=== PATIENT | female | born 1955 | race Caucasian/White ===

== ENCOUNTER → 2016-12-26 | Outpatient (CLI) | payer OTHER ==
[~2016-12-26] MED LIST: ADVIN25/60 INH; ALBU1AER9 INH; ASPI81TA28 PO; ATOR10TA88 PO; BSP15 PO; BUTA1TAB70 PO; CARI350T28 PO; CHOL1CAP57 PO; CMP/10 PO; CYM/30 PO; CYM30 PO; CYM60 PO; DIVA250T PO; DIVA500T3 PO; DPKSR/500 PO; FRS/40 PO; GABA1CAP4 PO; HYDR-4383 PO; HYDR-5688 PO; IPRASOL4 INH; LPT10 PO; LSX40 PO; METO50TA16 PO; MYS50 PO; NRN800 PO; OXGN; OXYC1TAB3 PO; POTA20TA13 PO; POTA20TA16 PO; PRD20 PO; PRED50TA PO; PRIM50TA29 PO; PROC1TAB5 PO; PRT/40 PO; VNTHFA/IN INH; WARF-246 PO; oxycodone PO
== END | disposition home or self-care (01) ==
LOC: C.RDSM 13:30
PROVIDERS: ATTEND Orthopaedic Surgery Sports Medicine
DX: Z09 Encounter for follow-up examination after completed treatment for conditions other than malignant neoplasm (principal)

== ENCOUNTER → 2016-12-29 | Outpatient (CLI) | payer OTHER ==
--- NOTE | 2016-12-29 11:41 | DIAGNOSTIC IMAGING REPORT ---
TWO VIEW CHEST CLINICAL HISTORY: COPD. Cough and dyspnea. FINDINGS: PA and lateral chest radiographs are compared to study dated 08/28/2016 and correlated with chest CT dated 06/30/2016. The PA view is degraded by patient rotation. A multilead cardiac AICD largely obscures the right lower chest. The patient is status post midline sternotomy. The heart is enlarged and there is atherosclerotic calcification of the thoracic aorta. The pulmonary vasculature is noncongested. Emphysema and chronic interstitial thickening are similar to previous. Linear atelectasis versus scarring is present at the left lung base. No airspace consolidation or pleural effusion is identified. Biapical scarring is noted. There is no pneumothorax. The skeletal structures are osteopenic. Mild scoliosis is noted in the thoracic spine. IMPRESSION: 1. Cardiomegaly and AICD. There is no radiographic evidence of congestive failure. 2. Emphysema. No airspace consolidation or pleural effusion is identified. Electronically signed by: Alberto Terry M.D. 12/29/2016 11:40 AM Dictated Date/Time: 12/29/2016 11:38 AM
== END | disposition home or self-care (01) ==
LOC: C.RAD 11:06
PROVIDERS: ATTEND Nurse Practitioner Family
DX: J42 Unspecified chronic bronchitis (principal); I51.7 Cardiomegaly; Z95.810 Presence of automatic (implantable) cardiac defibrillator; J43.9 Emphysema, unspecified

== ENCOUNTER 2017-01-10 10:33 | Emergency (ER) | payer OTHER ==
[~2017-01-10] VITALS: Ht 157.5 cm; Wt 70.0 kg
[~2017-01-10 10:33] MED LIST changes: -ASPI81TA28 PO; -BSP15 PO; -BUTA1TAB70 PO; -CARI350T28 PO; -CHOL1CAP57 PO; -CMP/10 PO; -CYM/30 PO; -CYM30 PO; -CYM60 PO; -DPKSR/500 PO; -FRS/40 PO; -GABA1CAP4 PO; -HYDR-5688 PO; -IPRASOL4 INH; -LPT10 PO; -LSX40 PO; -METO50TA16 PO; -MYS50 PO; -OXGN; -OXYC1TAB3 PO; -POTA20TA13 PO; -PRD20 PO; -PRED50TA PO; -PRT/40 PO; -VNTHFA/IN INH; -WARF-246 PO
[2017-01-10 10:48] VITALS: TEMP 37; Ht 157.5 cm; Wt 70.0 kg
[2017-01-10] MEDS ORDERED: VNTHFA/IN INH (11:12)
[2017-01-10] MEDS ORDERED: OXYC1TAB3 PO (11:15)
--- NOTE | 2017-01-10 11:40 | DIAGNOSTIC IMAGING REPORT ---
LEFT FOOT 3 VIEWS HISTORY: Left foot pain x 5 days COMPARISON: None. FINDINGS: There is no fracture or dislocation. Mild dorsal soft tissue swelling. Small plantar and posterior calcaneal spurs. The Lisfranc joint is aligned. IMPRESSION: Mild dorsal soft tissue swelling. No fractures. Electronically signed by: Juan Carlos Lombardi M.D. 01/10/2017 11:39 AM Dictated Date/Time: 01/10/2017 11:37 AM
[2017-01-10] MEDS ORDERED: HYDROCODONE/ACETAMOPHEN 5/325MG TAB PO STA (12:44)
[2017-01-10] MEDS ORDERED: PRED50TA PO (13:09)
[2017-01-10] MEDS ORDERED: HYDR-5688 PO (13:09)
--- NOTE | 2017-01-10 13:11 | EMERGENCY ROOM VISIT NOTE ---
ED Visit Note First contact with patient: 10:50 CHIEF COMPLAINT: Left foot pain 5 days Patient is a 61-year-old white female who presents emergency department for elevation of left foot pain. She states that she woke up with the pain about 5 days ago. She describes pain across the balls of the plantar aspect of her foot into the lateral aspect of the first MTP. It has not improved despite elevation and wearing her FERNANDA stockings. There was no injury to the area. She notes that it is swollen. She rates her pain a 10/10. She did not try taking any medications for her discomfort. She has a history of DVT and is chronically anticoagulated on Coumadin. She states that her INR was checked last week and was "1.3." The pain radiates slightly to her left ankle, but not up into the calf. She denies any unusual activity prior to the onset of the pain. She denies any other extremity pain. T REVIEW OF SYSTEMS: Review of systems as per HPI. All other systems reviewed were negative. At least 6 systems reviewed. PMH: Electronic medical records are reviewed and summarized as above/below. See Problem List. SOCIAL HISTORY: Patient lives at home. Smoker. PHYSICAL EXAM: Vital Signs: Reviewed Nurse's notes. GENERAL: Patient is a 61- year-old white female who is awake and alert and laying on the gurney in no acute distress. She appears older than her stated age. MUSCULOSKELETAL: Examination of the left foot show chronic purpura and petechiae. She has mild dorsal soft tissue swelling. Slight erythema noted over the lateral aspect of the first MTP. She has tenderness to palpation over the heads of the metatarsals on the plantar aspect of the foot and on the lateral aspect of the first MTP. There is no increased warmth or induration. No cellulitic changes. No lymphangitic streaking. There is no pain over the plantar fascia or over the medial or lateral malleolus. Range of motion of the ankle and toes are full. There is no obvious deformity. Distal pulses are easily palpable and sensation to light touch is intact. EMERGENCY DEPARTMENT COURSE: X-rays of the left foot were obtained and did not demonstrate any acute bony pathology. Her physical exam is not consistent with cellulitis. I do not suspect superficial thrombophlebitis or DVT. Given the location of her pain, gout was considered. She is unable to take NSAIDs due to her warfarin therapy. She was given one Lyndora tablet in the emergency department for discomfort. She will be placed in a short course of oral prednisone and was encouraged to use the Lyndora as needed. She was advised to follow-up with her family doctor closely for further care and management. LEFT FOOT 3 VIEWS HISTORY: Left foot pain x 5 days COMPARISON: None. FINDINGS: There is no fracture or dislocation. Mild dorsal soft tissue swelling. Small plantar and posterior calcaneal spurs. The Lisfranc joint is aligned. IMPRESSION: Mild dorsal soft tissue swelling. No fractures. Problem List Medical Problems: (1) CHF (congestive heart failure) Status: Chronic (2) COPD (chronic obstructive pulmonary disease) Status: Chronic (3) H/O cardiac pacemaker Status: Chronic (4) H/O unilateral nephrectomy Status: Resolved (5) History of - pulmonary embolus Status: Resolved (6) Kidney stones Status: Resolved (7) Myocardial infarction Status: Resolved Surgical Problems: (1) AICD (automatic cardioverter/defibrillator) present Status: Chronic Current/Historical Medications Scheduled Aspirin (Aspirin Ec), 81 MG PO QAM Atorvastatin (Lipitor), 10 MG PO QAM Buspirone HCl (Buspirone HCl), 15 MG PO BID Carisoprodol (Soma), 350 MG PO TID Cholecalciferol (Vitamin D3), 2,000 INTER.UNIT PO QAM Divalproex Sodium (Depakote Er), 500 MG PO DAILY Divalproex Sodium (Depakote Er), 1 TAB PO HS Duloxetine HCl (Duloxetine HCl), 60 MG PO QAM Duloxetine HCl (Duloxetine HCl), 30 MG PO NOON/HS Furosemide (Furosemide), 40 MG PO QAM Gabapentin (Gabapentin), 800 MG PO TID Ipratropium-Albuterol (Duoneb), 1 TREATMENT INH QID Metoprolol Tartrate (Lopressor) (Lopressor), 50 MG PO BID Pantoprazole (Pantoprazole Sodium), 40 MG PO QAM Potassium Ext Rel (Klor-Con), 20 MEQ PO QAM Prednisone (Prednisone), 50 MG PO DAILY Primidone (Mysoline), 50 MG PO QAM Primidone (Mysoline), 100 MG PO QPM Warfarin Sodium (Warfarin Sodium), 5 MG PO 4WEEK Warfarin Sodium (Warfarin Sodium), 2.5 MG PO 3XWEEK Scheduled PRN Albuterol Hfa (Ventolin Hfa), 2-4 PUFFS INH Q4H PRN for SOB/Wheezing Xfqrqptogm-Ftwxndumgvtua-Oswwj (Esgic), 1 TAB PO UD PRN for Headache Hydrocodone/Acetaminophen 5MG/325MG (Lyndora 5MG/325MG), 1 TABLET PO Q4 PRN for Pain Oxycodone Ir (Roxicodone Ir), 5 MG PO Q4H PRN for Pain Oxygen (Oxygen), 3 LITERS NA HS PRN for PRN Prochlorperazine Maleate (Compazine), 10 MG PO TID PRN for RN Allergies Coded Allergies: Penicillins (Verified Allergy, Severe, HIVES, 01/10/17) Nitroglycerin (Verified Allergy, Unknown, TOLD NOT TO TAKE BY CARDIOLOGY, 01/10/17) Morphine (Verified Adverse Reaction, Unknown, HALLUCINATE, 01/10/17) Oxycodone (Verified Adverse Reaction, Unknown, FROM PERCOCET-ITCHING, 01/10) Vital Signs Date Time Temp Pulse Resp B/P Pulse Ox O2 Delivery O2 Flow Rate FiO2 01/10/17 13:20 92 20 113/75 97 01/10/17 10:48 37.0 92 20 113/75 97 Room Air Medications Administered Medications (Trade) Dose Ordered Sig/Johnie Route Start Time Stop Time Status Last Admin Dose Admin Acetaminophen/ Hydrocodone Bitart ([place]dora 5/325 Tab) 1 tab NOW STAT PO 01/10/17 12:44 01/10/17 12:46 DC 01/10/17 12:56 1 TAB Departure Information Impression Primary Impression: Left foot pain Prescriptions Prednisone (Prednisone) 50 Mg Tab 50 MG PO DAILY for 5 Days, #5 TAB Prov: Julia Davila PA 01/10/17 Hydrocodone/Acetaminophen 5MG/325MG (Lyndora 5MG/325MG) Tab 1 TABLET PO Q4 Y for Pain, #10 TAB For Initial Treatment Prov: Julia Davila PA 01/10/17 Referrals Milady Valle (PCP) Patient Instructions My [facility] Additional Instructions DO NOT drive, drink alcohol, operate machinery, or perform dangerous activities today. You were given medications in the ER that can affect your ability to safely function or operate a vehicle. Hydrocodone/Acetaminophen (Lyndora) 5/325 mg: Take 1-2 pills every four hours for breakthrough pain. Avoid alcohol, operating machinery or dangerous equipment, working on ladders or roofs, DRIVING, or situations where being under the influence may be dangerous. It is recommended to use an [id number] stool softener such as Colace, 100mg twice daily while taking this medication to avoid constipation. Prednisone 50mg: Once daily until the prescription is finished. It is best to take this earlier in the day as some patients note occasional difficulty falling asleep when taken in the late evening. Ice compresses for 20 minutes at a time four times daily for 2-3 days. Rest and elevate your injury. Continue current medications. Return to the ER immediately for any numbness, tingling, severe pain, extreme swelling in the extremity, fevers, worsening symptoms or as needed. Follow up with your primary care physician in 2-3 days for recheck of your present condition.
[2017-01-10 13:20] VITALS: BP 113/75; PULSE 92; O2SAT 97
[2017-03-27] MEDS ORDERED: PRIM50TA29 PO (11:28)
[2017-03-27] MEDS ORDERED: BUTA1TAB70 PO (11:28)
[2017-03-27] MEDS ORDERED: WARF-246 PO ×2 (11:35)
[2017-03-27] MEDS ORDERED: LSX40 PO (13:09)
[2017-03-27] MEDS ORDERED: CARI350T28 PO (13:26)
[2017-03-27] MEDS ORDERED: PRT/40 PO (17:34)
[2017-03-28] MEDS ORDERED: PRD20 PO (16:21)
== END 2017-01-10 13:20 | disposition home or self-care (01) ==
LOC: C.EDB 10:35 → C.EDD 13:20
DX: M79.672 Pain in left foot (principal); I50.9 Heart failure, unspecified; J44.9 Chronic obstructive pulmonary disease, unspecified; Z95.0 Presence of cardiac pacemaker; Z86.711 Personal history of pulmonary embolism; Z87.442 Personal history of urinary calculi; I25.2 Old myocardial infarction; Z90.5 Acquired absence of kidney; Z79.82 Long term (current) use of aspirin; Z79.01 Long term (current) use of anticoagulants; Z79.899 Other long term (current) drug therapy; F17.210 Nicotine dependence, cigarettes, uncomplicated

== ENCOUNTER 2017-03-27 15:05 | Inpatient (IN) | payer OTHER ==
[~2017-03-27] VITALS: Ht 157.5 cm; Wt 72.8 kg
[~2017-03-27 15:05] MED LIST changes: -ADVIN25/60 INH; -ALBU1AER9 INH; +ATOR10TA82 PO; -ATOR10TA88 PO; +BUTA1TAB70 PO; +CARI350T28 PO; -HYDR-4383 PO; +HYDR-5688 PO; +LSX40 PO; +OXYC1TAB3 PO; +VNTHFA/IN INH; +WARF-246 PO; -oxycodone PO
[2017-03-27] MEDS ORDERED: OXGN (15:08)
[2017-03-27] MEDS ORDERED: ASPI81TA28 PO (15:29)
[2017-03-27] MEDS ORDERED: IPRASOL4 INH (15:29)
[2017-03-27] MEDS ORDERED: SODIUM CHLORIDE 0.9% 1000ML 1,000 ML IV STA (15:31)
[2017-03-27 15:37] LABS: BASO % 0.5 %; BASO ABS # 0.03 K/uL (0-0.2); COMPLETE YES; EOS % 1.9 %; HEMATOCRIT 40.7 % (37-47); IG% 0.2 %; LYMPH % 37.1 %; LYMPH ABS # 2.31 K/uL (1.2-3.4); MEAN CELL VOLUME 101.5 fL (80-100); MEAN CORPUSCULAR HEMOGLOBIN 34.2 pg (25-34); MEAN CORPUSCULAR HGB CONC 33.7 g/dl (32-36); MEAN PLATELET VOLUME 10.4 fL (7.4-10.4); MONO % 9.8 %; NEUT % 50.5 %; PLATELET COUNT 222 K/uL (130-400); RED BLOOD COUNT 4.01 M/uL (4.2-5.4); WHITE BLOOD COUNT 6.22 K/uL (4.8-10.8)
--- NOTE | 2017-03-27 15:37 | DIAGNOSTIC IMAGING REPORT ---
CHEST ONE VIEW PORTABLE CLINICAL HISTORY: Atypical chest pain COMPARISON STUDY: 12/29/2016 FINDINGS: There is a right subclavian pacer/defibrillator. There are postsurgical changes of midline sternotomy. The heart is mildly enlarged. There is no failure. There is no focal pulmonary consolidation. There are no pleural effusions.[ IMPRESSION: No active disease in the chest. Electronically signed by: Alphonso Gracia M.D. 03/27/2017 3:36 PM Dictated Date/Time: 03/27/2017 3:35 PM
--- NOTE | 2017-03-27 15:49 | EMERGENCY ROOM VISIT NOTE ---
History Report prepared by Jayjay: Pee Leal Under the Supervision of: Dr. Nilay Orellana D.O. First contact with patient: 15:06 Chief Complaint: CHEST PAIN Stated Complaint: CHEST PAIN History of Present Illness The patient is a 61 year old female who presents to the Emergency Room via EMS with complaints of persistent left sided chest pain starting about an hour ago. The patient has a [employer] pacemaker in place for a history of Idiopathic Hypertrophic Subaortic Stenosis. Today, the patient was cleaning when she had a sudden onset of her pain. She has an AICD which fired twice. The defibrillator fired once just prior to the onset of her pain. She describes it to be a stabbing pain. She denies any worsening pain with movement or bending. She has worsening pain with breathing. She reports some shortness of breath. The patient has a history of COPD. She was given 4 mg Zofran and 8 mg Morphine by EMS. She denies any history of aortic dissection or aortic aneurysm. She has a history of heart attack but denies any similar symptoms today. She also has a history of 2 strokes. She is on Coumadin. Pt denies headache, change in vision, fevers, cough or productive sputum, vomiting, diarrhea, pain with urination, and melena. Source of History: patient, EMS Onset: about an hour ago Position: chest (left) Quality: stabbing Timing: other (persistent) Modifying Factors (Worsening): breathing Modifying Factors (Relieving): other (4 mg Zofran and 8 mg Morphine) Associated Symptoms: + SOB, No cough, No diarrhea, No fevers, No vomiting Review of Systems See HPI for pertinent positives & negatives. A total of 10 systems reviewed and were otherwise negative. Past Medical & Surgical Medical Problems: (1) Abdominal pain (2) CHF (congestive heart failure) (3) COPD (chronic obstructive pulmonary disease) (4) H/O cardiac pacemaker (5) H/O unilateral nephrectomy (6) History of - pulmonary embolus (7) Kidney stones (8) Myocardial infarction (9) SOB (shortness of breath) (10) Stroke-like symptoms Surgical Problems: (1) AICD (automatic cardioverter/defibrillator) present Family History No significant family history Social History Smoking Status: Current Every Day Smoker Alcohol Use: none Drug Use: none Marital Status: Housing Status: lives with family Occupation Status: unemployed Current/Historical Medications Scheduled Aspirin (Aspirin Ec), 81 MG PO QAM Atorvastatin (Atorvastatin Calcium), 10 MG PO QAM Buspirone HCl (Buspirone HCl), 15 MG PO BID Cholecalciferol (Vitamin D3), 2,000 INTER.UNIT PO QAM Divalproex Sodium (Depakote Etended-Release), 500 MG PO HS Duloxetine HCl (Duloxetine HCl), 60 MG PO QAM Duloxetine HCl (Duloxetine HCl), 30 MG PO HS Duloxetine HCl (Cymbalta), 30 MG PO QD@1200 Furosemide (Furosemide), 40 MG PO QD@0700 Furosemide (Lasix), 40 MG PO QD@1200 Gabapentin (Gabapentin), 300 MG PO TID Metoprolol Tartrate (Lopressor) (Lopressor), 50 MG PO BID Oxygen (Oxygen), 3 LITERS NA UD Pantoprazole (Pantoprazole Sodium), 40 MG PO QAM Potassium Chloride Microencaps (Potassium Chloride Er), 20 MEQ PO DAILY Primidone (Mysoline), 100 MG PO QPM Primidone (Primidone), 50 MG PO QAM Warfarin Sodium (Warfarin Sodium), 5 MG PO 5XWK Warfarin Sodium (Warfarin Sodium), 2.5 MG PO 2XWK Scheduled PRN Pqfbbwnelb-Fpjvlnqxysauo-Cchqr (Esgic), 1 TAB PO UD PRN for Headache Carisoprodol (Soma), 350 MG PO TID PRN for Muscle Relaxer Hydrocodone/Acetaminophen ([place] 10/325 Tab), 2 TABS PO TID PRN for Pain Ipratropium-Albuterol (Duoneb), 1 TREATMENT INH QID PRN for SOB/Wheezing Prochlorperazine Maleate (Prochlorperazine Maleate), 10 MG PO Q6H PRN for Migraine/Nausea Allergies Coded Allergies: Penicillins (Verified Allergy, Severe, HIVES, 01/10/17) Nitroglycerin (Verified Allergy, Unknown, TOLD NOT TO TAKE BY CARDIOLOGY, 01/10/17) Morphine (Verified Adverse Reaction, Unknown, HALLUCINATE, 01/10/17) Oxycodone (Verified Adverse Reaction, Unknown, FROM PERCOCET-ITCHING, 01/10) Physical Exam Vital Signs Date Time Temp Pulse Resp B/P Pulse Ox O2 Delivery O2 Flow Rate FiO2 03/27/17 18:28 61 18 123/74 98 Nasal Cannula 2.0 03/27/17 16:50 54 18 118/62 99 Room Air 03/27/17 15:55 51 20 109/72 98 Nasal Cannula 2.0 03/27/17 15:30 54 03/27/17 15:12 36.7 58 20 106/68 98 Nasal Cannula 2.0 Physical Exam GENERAL: Sitting up in bed, disheveled, chronically ill appearing, no acute distress, non-toxic EYE EXAM: normal conjunctiva OROPHARYNX: no exudate, no erythema, lips, buccal mucosa, and tongue normal and mucous membranes are moist NECK: supple, no nuchal rigidity, no adenopathy, non-tender CHEST: Pacemaker located in right chest wall LUNGS: Wheezing bilaterally HEART: no murmurs, S1 normal and S2 normal ABDOMEN: abdomen soft, non-tender, normo-active bowel sounds, no masses, no rebound or guarding. BACK: Back is symmetrical on inspection and there is no deformity, no midline tenderness, no CVA tenderness. SKIN: no rashes and no bruising UPPER EXTREMITIES: upper extremities are grossly normal. LOWER EXTREMITIES: No pitting edema. Calves are equal bilaterally. NEURO EXAM: Normal sensorium, cranial nerves II-XII grossly intact, normal speech, no gross weakness of arms, no gross weakness of legs. Medical Decision & Procedures ER Provider Diagnostic Interpretation: X-ray results as stated below per my and the radiologist's interpretation: CHEST ONE VIEW PORTABLE CLINICAL HISTORY: Atypical chest pain COMPARISON STUDY: 12/29/2016 FINDINGS: There is a right subclavian pacer/defibrillator. There are postsurgical changes of midline sternotomy. The heart is mildly enlarged. There is no failure. There is no focal pulmonary consolidation. There are no pleural effusions.[ IMPRESSION: No active disease in the chest. Electronically signed by: Alphonso Gracia M.D. 03/27/2017 3:36 PM Dictated Date/Time: 03/27/2017 3:35 PM Laboratory Results 03/27/17 15:20 Red Blood Count 4.01, Mean Corpuscular Volume 101.5, Mean Corpuscular Hemoglobin 34.2, Mean Corpuscular Hemoglobin Concent 33.7, Mean Platelet Volume 10.4, Neutrophils (%) (Auto) 50.5, Lymphocytes (%) (Auto) 37.1, Monocytes (%) ( Auto) 9.8, Eosinophils (%) (Auto) 1.9, Basophils (%) (Auto) 0.5, Neutrophils # ( Auto) 3.14, Lymphocytes # (Auto) 2.31, Monocytes # (Auto) 0.61, Eosinophils # ( Auto) 0.12, Basophils # (Auto) 0.03 03/27/17 15:20 Test 03/27/17 15:20 03/27/17 16:00 White Blood Count 6.22 K/uL (4.8-10.8) Red Blood Count 4.01 M/uL (4.2-5.4) Hemoglobin 13.7 g/dL (12.0-16.0) Hematocrit 40.7 % (37-47) Mean Corpuscular Volume 101.5 fL (80-100) Mean Corpuscular Hemoglobin 34.2 pg (25-34) Mean Corpuscular Hemoglobin Concent 33.7 g/dl (32-36) Platelet Count 222 K/uL (130-400) Mean Platelet Volume 10.4 fL (7.4-10.4) Neutrophils (%) (Auto) 50.5 % Lymphocytes (%) (Auto) 37.1 % Monocytes (%) (Auto) 9.8 % Eosinophils (%) (Auto) 1.9 % Basophils (%) (Auto) 0.5 % Neutrophils # (Auto) 3.14 K/uL (1.4-6.5) Lymphocytes # (Auto) 2.31 K/uL (1.2-3.4) Monocytes # (Auto) 0.61 K/uL (0.11-0.59) Eosinophils # (Auto) 0.12 K/uL (0-0.5) Basophils # (Auto) 0.03 K/uL (0-0.2) RDW Standard Deviation 50.6 fL (36.4-46.3) RDW Coefficient of Variation 13.4 % (11.5-14.5) Immature Granulocyte % (Auto) 0.2 % Immature Granulocyte # (Auto) 0.01 K/uL (0.00-0.02) Anion Gap 5.0 mmol/L (3-11) Est Creatinine Clear Calc Drug Dose 69.2 ml/min Estimated GFR () 93.0 Estimated GFR (Non- 80.2 BUN/Creatinine Ratio 9.2 (10-20) Calcium Level 8.5 mg/dl (8.5-10.1) Magnesium Level 2.2 mg/dl (1.8-2.4) Total Creatine Kinase 123 U/L (26-192) Creatine Kinase MB 3.4 ng/ml (0.5-3.6) Creatine Kinase MB Ratio 2.8 (0-3.0) Valproic Acid (Depakene) Level 39 mcg/ml (50-100) Prothrombin Time 30.1 SECONDS (9.0-12.0) Prothromb Time International Ratio 2.7 (0.9-1.1) Laboratory results per my review. Medications Administered Medications (Trade) Dose Ordered Sig/Johnie Route Start Time Stop Time Status Last Admin Dose Admin Sodium Chloride (Nss 1000ml) 1,000 ml @ 999 mls/hr Q1H1M STAT IV 03/27/17 15:31 03/27/17 16:31 DC 03/27/17 15:42 999 MLS/HR Fentanyl Citrate (Fentanyl Inj) 25 mcg NOW STAT IV 03/27/17 15:58 03/27/17 15:59 DC 03/27/17 16:20 25 MCG Acetaminophen/ Hydrocodone Bitart ([place] 10/325 Tab) 2 tab TID PRN PO 03/27/17 18:45 04/10/17 18:44 03/27/17 21:17 2 TAB ECG Indication: chest pain Rate (beats per minute): 67 Rhythm: other (Dual paced rhythm) Findings: LBBB, left axis deviation, prolonged QT Comparison ECG Date: June 30, 2016 Change: Dual paced rhythm has replaced ventricular paced rhythm when compared to June 30, 2016. ED Course ED COURSE: Vital signs were reviewed and showed bradycardic. The patients medical record was reviewed The above diagnostic studies were performed and reviewed. ED treatments and interventions as stated above. 1506: The patient was evaluated in room C12B. A complete history and physical examination was performed. 1515: The patient's pacemaker is being interrogated. 1531: Sodium Chloride 1000 ml @ 999 mls/hr IV 1556: I reviewed previous radiology reports. 1558: Fentanyl Inj 25 mcg IV 1643: Upon reevaluation, the patient is resting comfortably. I discussed my findings with the patient and she understands and agrees with the treatment plan. Based on the patients age, coexisting illnesses, exam and lab findings the decision to treat as an inpatient was made. The patient remained stable while under my care. The patient will be evaluated for further management. 1643: I discussed the patient's case with Dr. Sorensen, from [facility]. 1648: Since 1616, everything has been normal in her pacemaker interrogation. Medical Decision Differential diagnoses includes but is not limited to acute coronary syndrome, myocardial infarction, pericarditis, pulmonary embolus, aortic dissection, pneumonia, pneumothorax, musculoskeletal, shingles, esophageal. Medication Reconciliation: I attest that I have personally reviewed the patient' s current medication list. Blood pressure screening: Patient was found to have normal blood pressure on screening and does not require follow-up. Patient is a 59-year-old female who presents the ER for precordial chest pain radiating to the back. She has a history of HCOM, PE, IN and CHF. She is on anticoagulation. CBC along with BMP was unremarkable. Troponin was elevated at 1.89. This is fairly consistent with her previous baselines at 1.5. INR was 2.7 and consequently PE was not pursued as she is anticoagulated and I feel this is very unlikely. Chest x-ray was unremarkable. EKG was paced. She did complain that she was initially shocked and following this her chest pain started. Pacemaker was interrogated and there is no shocks since February 12. Patient was given a small dose of fentanyl and had already received aspirin. The patient had a CTA of chest on June 2016 which was compared to March 2015. It showed an unremarkable aorta. She had a CT of abdomen and pelvis on July 2016 which was normal without atherosclerosis. With these 2 recent studies I did not pursue any aneurysms as I feel this is very unlikely. With her risk factors discussed case with internal medicine for observation. Consults Time Called: 1639 Consulting Physician: Dr. Sorensen, from [facility] Returned Call: 1643 I discussed the patient's case with Dr. Sorensen, from [facility]. Impression Primary Impression: Precordial chest pain Additional Impression: Elevated troponin Scribe Attestation The scribe's documentation has been prepared under my direction and personally reviewed by me in its entirety. I confirm that the note above accurately reflects all work, treatment, procedures, and medical decision making performed by me. Departure Information Dispostion Being Evaluated By Hospitalist Referrals Milady Valle (PCP) Patient Instructions My [facility] Problem Qualifiers
[2017-03-27 15:55] LABS: BUN/CREATININE RATIO 9.2 (10-20); CALCIUM 8.5 mg/dl (8.5-10.1); CREATININE 0.79 mg/dl (0.60-1.20); MAGNESIUM 2.2 mg/dl (1.8-2.4); POTASSIUM 4.4 mmol/L (3.5-5.1)
[2017-03-27] MEDS ORDERED: FENTANYL CITRATE INJ 50 MCG/1 ML 2 ML VIAL IV STA (15:58)
[2017-03-27 16:04] LABS: CKMB/CK RATIO 2.8 (0-3.0)
[2017-03-27 16:18] LABS: INR 2.7 (0.9-1.1); PROTHROMBIN TIME (PATIENT) 30.1 SECONDS (9.0-12.0)
[2017-03-27] MEDS ORDERED: BSP15 PO (16:26)
[2017-03-27] MEDS ORDERED: GABA1CAP4 PO (16:28)
[2017-03-27] MEDS ORDERED: MYS50 PO (16:28)
[2017-03-27] MEDS ORDERED: POTA20TA13 PO (16:29)
[2017-03-27] MEDS ORDERED: HYDR-4383 PO (16:29)
[2017-03-27] MEDS ORDERED: FRS/40 PO (16:29)
[2017-03-27] MEDS ORDERED: CMP/10 PO (16:29)
[2017-03-27] MEDS ORDERED: DPKSR/500 PO (16:29)
[2017-03-27] MEDS ORDERED: LPT10 PO (16:29)
[2017-03-27] MEDS ORDERED: CYM/30 PO (16:36)
[2017-03-27] MEDS ORDERED: PANT40TA2 PO (17:34)
[2017-03-27] MEDS ORDERED: CYM30 PO (17:34)
[2017-03-27] MEDS ORDERED: MAGNESIUM HYDROXIDE SUSP 30 ML UDC PO PRN (18:30)
[2017-03-27] MEDS ORDERED: ACETAMINOPHEN 325 MG TAB PO PRN (18:30)
[2017-03-27] MEDS ORDERED: ONDANSETRON INJ 2 MG/ML 2 ML VIAL IV PRN (18:30)
[2017-03-27] MEDS ORDERED: POLYETHYLENE (MIRALAX) 17 GM PACK PO PRN (18:30)
[2017-03-27] MEDS ORDERED: ALUMINUM/MAGNESIUM/SIMETH (MAALOX MAX) 30 ML UDC PO PRN (18:30)
[2017-03-27] MEDS ORDERED: PROCHLORPERAZINE MALEATE 10 MG TAB PO PRN (18:45)
[2017-03-27] MEDS ORDERED: ALBUT/IPRATROP 3MG/0.5MG NEB 3 ML VIAL INH PRN (18:45)
--- NOTE | 2017-03-27 19:02 | History and Physical ---
History & Physical Date & Time of Service: March 27, 2017 at 18:44 Chief Complaint: Chest Pain Primary Care Physician: Milady Valle History of Present Illness 61 year old female with a PMH of CHF, COPD, Stroke and several other medical ailments presented to [facility] with substernal chest pain and was found to have elevated troponins. The chest pain started at 330pm, it is central. It is stabbing in nature and it radiates to the left shoulder and left leg. It is made better by rest and is made worse by exertion. She says she felt as if her pacemaker went off. She rates the pain as a 10/10 in severity. She has associated dry heaves, shortness of breath, pleuritic chest pain, diaphoresis and productive cough She was given zofran and morphine by EMS. In the ED she was found to have a troponin of 1.89 She denies any nausea, vomiting, palpitations, headache, facial weakness, limb weakness, slurred speech, visual changes, ab pain, fever, night sweats chills, dysuria, constipation or diarrhea Past Medical/Surgical History Medical Problems: (1) CHF (congestive heart failure) Status: Chronic (2) COPD (chronic obstructive pulmonary disease) Status: Chronic (3) H/O cardiac pacemaker Status: Chronic (4) H/O unilateral nephrectomy Status: Resolved (6) Kidney stones Status: Resolved (7) Myocardial infarction Status: Resolved Surgical Problems: (1) AICD (automatic cardioverter/defibrillator) present Status: Chronic 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 Depression Tremors Stroke Peripheral Arterial Disease Peripheral neuropathy HOCM Family History No significant family history Mother had stroke in 40's Father had MT in 50's Social History Smoking Status: Current Every Day Smoker (50 pack year history) Alcohol Use: none Drug Use: none Marital Status: Housing status: lives with family Occupational Status: unemployed Immunizations History of Influenza Vaccine: Yes Influenza Vaccine Date: Jul 05, 2011 History of Tetanus Vaccine?: No History of Pneumococcal: Yes Pneumococcal Date: Jul 05, 2011 History of Hepatitis B Vaccine: No Multi-Drug Resistant Organisms History of MDRO: No Allergies Coded Allergies: Penicillins (Verified Allergy, Severe, HIVES, 01/10/17) Nitroglycerin (Verified Allergy, Unknown, TOLD NOT TO TAKE BY CARDIOLOGY, 01/10/17) Morphine (Verified Adverse Reaction, Unknown, HALLUCINATE, 01/10/17) Oxycodone (Verified Adverse Reaction, Unknown, FROM PERCOCET-ITCHING, 01/10) Home Medications Scheduled Aspirin (Aspirin Ec), 81 MG PO QAM Atorvastatin (Atorvastatin Calcium), 10 MG PO QAM Buspirone HCl (Buspirone HCl), 15 MG PO BID Cholecalciferol (Vitamin D3), 2,000 INTER.UNIT PO QAM Divalproex Sodium (Depakote Etended-Release), 500 MG PO HS Duloxetine HCl (Duloxetine HCl), 60 MG PO QAM Duloxetine HCl (Duloxetine HCl), 30 MG PO HS Duloxetine HCl (Cymbalta), 30 MG PO QD@1200 Furosemide (Furosemide), 40 MG PO QD@0700 Furosemide (Lasix), 40 MG PO QD@1200 Gabapentin (Gabapentin), 300 MG PO TID Metoprolol Tartrate (Lopressor) (Lopressor), 50 MG PO BID Oxygen (Oxygen), 3 LITERS NA UD Pantoprazole (Pantoprazole Sodium), 40 MG PO QAM Potassium Chloride Microencaps (Potassium Chloride Er), 20 MEQ PO DAILY Primidone (Mysoline), 100 MG PO QPM Primidone (Primidone), 50 MG PO QAM Warfarin Sodium (Warfarin Sodium), 5 MG PO 5XWK Warfarin Sodium (Warfarin Sodium), 2.5 MG PO 2XWK Scheduled PRN Twpauuikaj-Fjrspzrtpsiyy-Xngrb (Esgic), 1 TAB PO UD PRN for Headache Carisoprodol (Soma), 350 MG PO TID PRN for Muscle Relaxer Hydrocodone/Acetaminophen ([place] 10/325 Tab), 2 TABS PO TID PRN for Pain Ipratropium-Albuterol (Duoneb), 1 TREATMENT INH QID PRN for SOB/Wheezing Prochlorperazine Maleate (Prochlorperazine Maleate), 10 MG PO Q6H PRN for Migraine/Nausea Review of Systems please see HPI for ROS Physical Exam Vital Signs Date Time Temp Pulse Resp B/P Pulse Ox O2 Delivery O2 Flow Rate FiO2 03/27/17 18:28 61 18 123/74 98 Nasal Cannula 2.0 03/27/17 16:50 54 18 118/62 99 Room Air 03/27/17 15:55 51 20 109/72 98 Nasal Cannula 2.0 03/27/17 15:30 54 03/27/17 15:12 36.7 58 20 106/68 98 Nasal Cannula 2.0 General Appearance: + mild distress, + pertinent finding (disheveled) Head: normocephalic, atraumatic Eyes: normal inspection, PERRL, EOMI ENT: hearing grossly normal, pharynx normal, + pertinent finding (poor dentition) Neck: supple, no adenopathy, no JVD, no carotid bruits, trachea midline Respiratory/Chest: + decreased breath sounds, + rhonchi (diffuse and scattered bilaterally), + wheezing (diffuse bilaterally) Cardiovascular: regular rate, rhythm, + abnormal peripheral pulses (unable to feel peripheral pulses), + pertinent finding (distant heart sounds, difficult to hear because of wheezing, pacemaker in right side of chest, non tender and non erythematous) Abdomen/GI: normal bowel sounds, soft, no organomegaly, + tenderness ( suprapubic tenderness) Back: normal inspection, no CVA tenderness Extremities/Musculoskelatal: no calf tenderness, + pedal edema (+1 edema to mid deleon), + slow capillary refill (>4 seconds), + pertinent finding (cold feet bilaterally, purple discolouration of lower extremities bilaterally) Neurologic/Psych: alert, normal mood/affect, oriented x 3 Diagnostics Laboratory Results Results Past 24 Hours Test 03/27/17 15:20 03/27/17 16:00 Range/Units White Blood Count 6.22 4.8-10.8 K/uL Red Blood Count 4.01 4.2-5.4 M/uL Hemoglobin 13.7 12.0-16.0 g/dL Hematocrit 40.7 37-47 % Mean Corpuscular Volume 101.5 80-100 fL Mean Corpuscular Hemoglobin 34.2 25-34 pg Mean Corpuscular Hemoglobin Concent 33.7 32-36 g/dl Platelet Count 222 130-400 K/uL Mean Platelet Volume 10.4 7.4-10.4 fL Neutrophils (%) (Auto) 50.5 % Lymphocytes (%) (Auto) 37.1 % Monocytes (%) (Auto) 9.8 % Eosinophils (%) (Auto) 1.9 % Basophils (%) (Auto) 0.5 % Neutrophils # (Auto) 3.14 1.4-6.5 K/uL Lymphocytes # (Auto) 2.31 1.2-3.4 K/uL Monocytes # (Auto) 0.61 0.11-0.59 K/uL Eosinophils # (Auto) 0.12 0-0.5 K/uL Basophils # (Auto) 0.03 0-0.2 K/uL RDW Standard Deviation 50.6 36.4-46.3 fL RDW Coefficient of Variation 13.4 11.5-14.5 % Immature Granulocyte % (Auto) 0.2 % Immature Granulocyte # (Auto) 0.01 0.00-0.02 K/uL Sodium Level 135 136-145 mmol/L Potassium Level 4.4 3.5-5.1 mmol/L Chloride Level 97 98-107 mmol/L Carbon Dioxide Level 33 21-32 mmol/L Anion Gap 5.0 3-11 mmol/L Blood Urea Nitrogen 7 7-18 mg/dl Creatinine 0.79 0.60-1.20 mg/dl Est Creatinine Clear Calc Drug Dose 69.2 ml/min Estimated GFR () 93.0 Estimated GFR (Non- 80.2 BUN/Creatinine Ratio 9.2 10-20 Random Glucose 97 70-99 mg/dl Calcium Level 8.5 8.5-10.1 mg/dl Magnesium Level 2.2 1.8-2.4 mg/dl Total Creatine Kinase 123 26-192 U/L Creatine Kinase MB 3.4 0.5-3.6 ng/ml Creatine Kinase MB Ratio 2.8 0-3.0 Troponin I 1.890 0-0.045 ng/ml Valproic Acid (Depakene) Level 39 50-100 mcg/ml Prothrombin Time 30.1 9.0-12.0 SECONDS Prothromb Time International Ratio 2.7 0.9-1.1 CXR normal EKG AV dual paced rythm No change from prior EKG Impression Assessment and Plan 61 year old female with a PMH of CHF, COPD, Stroke and several other medical ailments presented to [facility] with substernal chest pain and was found to have elevated troponin Chest pain (undiagnosed) - trend troponins, last one was 1.89, repeat at 9pm - admit to telemetry - EKG unchanged from prior - pacemaker - complete echo tomorrow am - continue aspirin, lipitor and warfarin - ordered Hba1c and lipid panel CHF (systolic) - Hx of HOCM and Idiopathic Hypertrophic subaortic sclerosis - Last echo june 2016 45-50% - had open heart surgery over 15 years ago - Dr. Pete is his dental hygienist - Continue furosemide, continue metoprolol, cont potassium Atrial Fibrillation - on warfarin 2.5 2x weekly and 5mg 5xweekly - INR 2.7 - repeat in AM - on tele Stroke - 1 year ago - persistent tremor after stroke - on depakote and primidone for tremor COPD - on 3L at night - Duoneb QID - significant smoking hx-put on nicotine patch Depression - continue duloxetine, buspirone Hx Kidney stones - unilateral nephrectomy Peripheral neuropathy - Gabapentin GERD - continue pantoprazole Muscle spasms - carisoprodol Diet - Heart healthy diet Code - Full no mechanical or compressions Level of Care Telemetry Resuscitation Status FULL NO CARDIOV/MECH BRIDGET VTE Prophylaxis VTE Risk Assessment Done? Y/N: Yes Risk Level: High Reviewed: Pt Seen/Exam by Me History Pt has had occasional chest pain while in the ED. Audible wheezing and SOB. Feels she is not getting enough O2 on 2L. States she takes her nebs QID at home and is overdue. is present and states that she is not frequently with audible wheezing. Pt has been eating without issue. She is eating a cheeseburger from the cafe that her brought her. Agree with HPI/ROS as noted. General Appearance: WD/WN, mild distress (SOB) Respiratory: decreased breath sounds, wheezing (diffuse and audible upon entering the room) Cardiovascular: normal peripheral pulses, regular rate, rhythm Gastrointestinal: non tender, soft Extremities: non-tender, pedal edema (1+ pitting) Neurologic/Psychiatric: alert, oriented x 3 Skin Characteristics: normal color, warm/dry Assessment/Plan Agree with plan as outlined above Chest pain with elevated trop Pt with baseline trop elevation 1.4-1.5 Extensive cardiac hx Repeat trop and if further elevation, will likely need cards assessment ECHO pending INR WNL, PE unlikely COPD exacerbation Start nebs QID + PRN Steroids 125mg now + 60mg TID
[2017-03-27] MEDS ORDERED: METHYLPREDNISOLONE 125 MG VIAL IV STA (19:45)
[2017-03-27 20:00] VITALS: PULSE 65; O2SAT 98
[2017-03-27] MEDS: ALBUT/IPRATROP 3MG/0.5MG NEB 3 ML VIAL INH SCH (20:00)
[2017-03-27 20:01] VITALS: BP 90/73; PULSE 66; TEMP 36.6; O2SAT 97; Ht 157.5 cm; Wt 72.8 kg
[2017-03-27] MEDS ORDERED: METO50TA16 PO (20:25)
[2017-03-27] MEDS ORDERED: CYM60 PO (20:25)
[2017-03-27] MEDS ORDERED: CHOL1CAP57 PO (20:27)
[2017-03-27] MEDS ORDERED: METHYLPREDNISOLONE 125 MG in SYRINGE 0 ML IV SCH (20:30)
[2017-03-27] MEDS ORDERED: PRIMIDONE 50 MG TAB PO SCH (21:00)
[2017-03-27] MEDS ORDERED: DULOXETINE (CYMBALTA) 30 MG CAP PO SCH (21:00)
[2017-03-27] MEDS: HYDROCODONE/ACETAMI 10/325 TAB PO PRN (21:17)
[2017-03-27] MEDS: GABAPENTIN 300 MG CAP PO SCH (21:19)
[2017-03-27 23:23] VITALS: BP 105/71; PULSE 57; TEMP 36.7; O2SAT 90
[2017-03-27] MEDS: CARISOPRODOL 350 MG TAB PO PRN (23:54)
[2017-03-28] VITALS (9 sets, daily range): BP systolic 99–118; BP diastolic 59–84; PULSE 56–78; TEMP 36.7–36.9; O2SAT 90–99
[2017-03-28] MEDS: ALBUT/IPRATROP 3MG/0.5MG NEB 3 ML VIAL INH SCH ×3 (01:27→15:08)
[2017-03-28] MEDS: BUTALBITAL/ACETAMIN/CAFFEINE TAB PO PRN ×2 (05:35→14:02)
[2017-03-28] MEDS ORDERED: FUROSEMIDE 40 MG TAB PO SCH ×2 (07:00→12:00)
[2017-03-28 07:49] LABS: INR 2.2 (0.9-1.1); PROTHROMBIN TIME (PATIENT) 24.1 SECONDS (9.0-12.0)
[2017-03-28 08:28] LABS: CHOLESTEROL/HDL RATIO 4.4
[2017-03-28] MEDS: HYDROCODONE/ACETAMI 10/325 TAB PO PRN ×2 (08:35→10:52)
[2017-03-28] MEDS: METHYLPREDNISOLONE IV 60 MG in SYRINGE 0 ML IV SCH ×2 (08:35→14:03)
[2017-03-28] MEDS: GABAPENTIN 300 MG CAP PO SCH ×2 (08:38→14:02)
[2017-03-28] MEDS ORDERED: POTASSIUM CHLORIDE 20 MEQ TABCR PO SCH (09:00)
[2017-03-28] MEDS ORDERED: METOPROLOL TARTRATE 50 MG TAB PO SCH (09:00)
[2017-03-28] MEDS ORDERED: BusPIRone 15 MG TAB PO SCH (09:00)
[2017-03-28] MEDS ORDERED: ATORVASTATIN 10 MG TAB PO SCH (09:00)
[2017-03-28] MEDS ORDERED: DULOXETINE HCL 60 MG CAP PO SCH (09:00)
[2017-03-28] MEDS ORDERED: PRIMIDONE 50 MG TAB PO SCH (09:00)
[2017-03-28] MEDS ORDERED: CHOLECALCIFEROL 1000 INTER.UNIT TAB PO SCH (09:00)
[2017-03-28] MEDS ORDERED: PANTOprazole SOD 40 MG TAB PO SCH (09:00)
[2017-03-28] MEDS ORDERED: NICOTINE 14 MG/24 HR TDSY TD SCH (09:00)
[2017-03-28] MEDS ORDERED: ASPIRIN 81 MG ECTAB PO SCH (09:00)
[2017-03-28 09:44] LABS: ESTIMATED AVERAGE GLUCOSE 120 mg/dl; HA1C FLAG Normal (Normal)
[2017-03-28] MEDS ORDERED: NURSING VERBAL MED ORDER ONE (10:45)
[2017-03-28] MEDS ORDERED: HYDROCODONE/ACETAMI 10/325 TAB PO SCH (10:55)
[2017-03-28] MEDS ORDERED: DULOXETINE (CYMBALTA) 30 MG CAP PO SCH (12:00)
--- NOTE | 2017-03-28 12:18 | Family Medicine Progress Note ---
Progress Note Date of Service March 28, 2017. Subjective Pt evaluation today including: conversation w/ patient, physical exam, chart review, conversation w/ financial services education consultant, review of inpatient medication list Pain: 7/10 PO Intake: good Voiding: no voiding problems Patient with no acute events overnight. She continues to have some precordial chest pain. She rates it as a 7/10 in severity and it radiates down her left arm. She continues to have wheezing bilaterally, but it has improved since being on the nebulizer treatments. She says she is feeling much better than she did yesterday. She denies any fever, night sweats, chills, abdominal pain, nausea, vomiting, palpitations, worsening leg swelling, diaphoresis or headaches Additional Comments: please see above for ROS Medications Current Inpatient Medications Medications (Trade) Dose Ordered Sig/Johnie Route Start Time Stop Time Status Last Admin Dose Admin Acetaminophen (Tylenol Tab) 650 mg Q4H PRN PO 03/27/17 18:30 04/26/17 18:29 Al Hydrox/Mg Hydrox/Simethicone (Maalox Max Susp) 15 ml Q4H PRN PO 03/27/17 18:30 04/26/17 18:29 Magnesium Hydroxide (Milk Of Magnesia Susp) 30 ml Q6H PRN PO 03/27/17 18:30 04/26/17 18:29 Polyethylene (Miralax Powder Packet) 17 gm DAILY PRN PO 03/27/17 18:30 04/26/17 18:29 Ondansetron HCl (Zofran Inj) 4 mg Q6H PRN IV 03/27/17 18:30 04/26/17 18:29 Aspirin (Ecotrin Tab) 81 mg QAM PO 03/28/17 09:00 04/27/17 08:59 03/28/17 08:38 81 MG Atorvastatin Calcium (Lipitor Tab) 10 mg QAM PO 03/28/17 09:00 04/27/17 08:59 03/28/17 08:39 10 MG Buspirone HCl (BusPAR TAB) 15 mg BID PO 03/28/17 09:00 04/27/17 08:59 03/28/17 08:39 15 MG Acetaminophen/ Butalbital/ Caffeine (Fioricet Tab) 1 tab UD PRN PO 03/27/17 18:45 04/26/17 18:44 03/28/17 05:35 1 TAB Carisoprodol (Soma Tab) 350 mg TID PRN PO 03/27/17 21:00 04/26/17 20:59 03/27/17 23:54 350 MG Divalproex Sodium (Depakote Extended Rel Tab) 500 mg HS PO 03/28/17 21:00 04/27/17 20:59 Duloxetine HCl (Cymbalta Cap) 30 mg HS PO 03/27/17 21:00 04/26/17 20:59 03/27/17 21:18 30 MG Duloxetine HCl (Cymbalta Cap) 60 mg QAM PO 03/28/17 09:00 04/27/17 08:59 03/28/17 08:39 60 MG Duloxetine HCl (Cymbalta Cap) 30 mg QD@1200 PO 03/28/17 12:00 04/27/17 11:59 Furosemide (Lasix Tab) 40 mg QD@0700 PO 03/28/17 07:00 04/27/17 06:59 03/28/17 08:38 40 MG Furosemide (Lasix Tab) 40 mg QD@1200 PO 03/28/17 12:00 04/27/17 11:59 Gabapentin (Neurontin Cap) 900 mg TID PO 03/27/17 21:00 04/26/17 20:59 03/28/17 08:38 900 MG Acetaminophen/ Hydrocodone Bitart ([place] 10/325 Tab) 2 tab TID PRN PO 03/27/17 18:45 04/10/17 18:44 03/28/17 10:52 1 TAB Albuterol/ Ipratropium (Duoneb) 3 ml QID PRN INH 03/27/17 18:45 04/26/17 18:44 Metoprolol Tartrate (Lopressor Tab) 50 mg BID PO 03/28/17 09:00 04/27/17 08:59 03/28/17 08:37 50 MG Pantoprazole Sodium (Protonix Tab) 40 mg QAM PO 03/28/17 09:00 04/27/17 08:59 03/28/17 08:37 40 MG Potassium Chloride (Klor-Con Tab) 20 meq DAILY PO 03/28/17 09:00 04/27/17 08:59 03/28/17 08:36 20 MEQ Primidone (Mysoline Tab) 50 mg QAM PO 03/28/17 09:00 04/27/17 08:59 03/28/17 08:39 50 MG Primidone (Mysoline Tab) 100 mg QPM PO 03/27/17 21:00 04/26/17 20:59 03/27/17 21:19 100 MG Prochlorperazine Maleate (Compazine Tab) 10 mg Q6H PRN PO 03/27/17 18:45 04/26/17 18:44 03/28/17 08:35 10 MG Warfarin Sodium (Coumadin Tab) 2.5 mg SuTu@1600 PO 04/01/17 16:00 05/01/17 15:59 Warfarin Sodium (Coumadin Tab) 5 mg MoWeThFrSa@1600 PO 03/28/17 16:00 04/27/17 15:59 Cholecalciferol (Vitamin D Tab) 2,000 inter.unit QAM PO 03/28/17 09:00 04/27/17 08:59 03/28/17 08:37 2,000 INTER.UNIT Nicotine (Nicoderm Cq 14MG Patch) 1 patch QAM TD 03/28/17 09:00 04/27/17 08:59 03/28/17 08:40 1 PATCH Miscellaneous (Remove Nicoderm Patch) 1 ea HS N/A 03/28/17 21:00 04/27/17 20:59 Albuterol/ Ipratropium 3 ml 3 ml QIDR INH 03/27/17 20:00 04/26/17 19:59 03/28/17 11:11 3 ML Methylprednisolone Sodium Succinate/ Syringe (Solu-Medrol IV/ Syringe) 0.96 ml @ 1.5 mls/min TID IV 03/28/17 09:00 04/27/17 08:59 03/28/17 08:35 1.5 MLS/MIN Objective Vital Signs Date Time Temp Pulse Resp B/P Pulse Ox O2 Delivery O2 Flow Rate FiO2 03/28/17 11:13 36.7 62 22 118/77 99 Room Air 03/28/17 11:11 65 22 90 Room Air 03/28/17 10:34 36.8 61 22 112/83 95 Nasal Cannula 3.0 03/28/17 08:00 36.7 71 22 99/59 90 Nasal Cannula 2.0 03/28/17 08:00 Nasal Cannula 2.0 03/28/17 04:00 Nasal Cannula 3.0 03/28/17 03:24 36.9 72 24 113/84 93 Nasal Cannula 3.0 03/28/17 01:27 56 22 98 Nasal Cannula 4.0 03/28/17 00:00 Nasal Cannula 3.0 03/27/17 23:23 36.7 57 22 105/71 90 Room Air 03/27/17 20:01 36.6 66 22 90/73 97 Nasal Cannula 4.0 03/27/17 20:00 65 20 98 Nasal Cannula 2.0 03/27/17 18:28 61 18 123/74 98 Nasal Cannula 2.0 03/27/17 16:50 54 18 118/62 99 Room Air 03/27/17 15:55 51 20 109/72 98 Nasal Cannula 2.0 03/27/17 15:30 54 03/27/17 15:12 36.7 58 20 106/68 98 Nasal Cannula 2.0 Physical Exam Notes: General Appearance: + mild distress, + pertinent finding (disheveled) Head: normocephalic, atraumatic Eyes: normal inspection, PERRL, EOMI ENT: hearing grossly normal, pharynx normal, + pertinent finding (poor dentition) Neck: supple, no adenopathy, no JVD, no carotid bruits, trachea midline Respiratory/Chest: + decreased breath sounds, mild bilateral wheezing, no crackles or crepitations Cardiovascular: regular rate, rhythm, + abnormal peripheral pulses (unable to feel peripheral pulses), + pertinent finding (distant heart sounds, difficult to hear because of wheezing, pacemaker in right side of chest, non tender and non erythematous) Abdomen/GI: normal bowel sounds, soft, no organomegaly, + tenderness ( suprapubic tenderness) Back: normal inspection, no CVA tenderness Extremities/Musculoskelatal: no calf tenderness, + pedal edema (+1 edema to mid deleon), + slow capillary refill (>4 seconds), + pertinent finding (cold feet bilaterally, purple discolouration of lower extremities bilaterally) Neurologic/Psych: alert, normal mood/affect, oriented x 3 Laboratory Results Results Past 24 Hours Test 03/27/17 15:20 03/27/17 16:00 03/27/17 21:03 03/28/17 07:35 Range/Units White Blood Count 6.22 4.8-10.8 K/uL Red Blood Count 4.01 4.2-5.4 M/uL Hemoglobin 13.7 12.0-16.0 g/dL Hematocrit 40.7 37-47 % Mean Corpuscular Volume 101.5 80-100 fL Mean Corpuscular Hemoglobin 34.2 25-34 pg Mean Corpuscular Hemoglobin Concent 33.7 32-36 g/dl Platelet Count 222 130-400 K/uL Mean Platelet Volume 10.4 7.4-10.4 fL Neutrophils (%) (Auto) 50.5 % Lymphocytes (%) (Auto) 37.1 % Monocytes (%) (Auto) 9.8 % Eosinophils (%) (Auto) 1.9 % Basophils (%) (Auto) 0.5 % Neutrophils # (Auto) 3.14 1.4-6.5 K/uL Lymphocytes # (Auto) 2.31 1.2-3.4 K/uL Monocytes # (Auto) 0.61 0.11-0.59 K/uL Eosinophils # (Auto) 0.12 0-0.5 K/uL Basophils # (Auto) 0.03 0-0.2 K/uL RDW Standard Deviation 50.6 36.4-46.3 fL RDW Coefficient of Variation 13.4 11.5-14.5 % Immature Granulocyte % (Auto) 0.2 % Immature Granulocyte # (Auto) 0.01 0.00-0.02 K/uL Sodium Level 135 136-145 mmol/L Potassium Level 4.4 3.5-5.1 mmol/L Chloride Level 97 98-107 mmol/L Carbon Dioxide Level 33 21-32 mmol/L Anion Gap 5.0 3-11 mmol/L Blood Urea Nitrogen 7 7-18 mg/dl Creatinine 0.79 0.60-1.20 mg/dl Est Creatinine Clear Calc Drug Dose 69.2 ml/min Estimated GFR () 93.0 Estimated GFR (Non- 80.2 BUN/Creatinine Ratio 9.2 10-20 Random Glucose 97 70-99 mg/dl Calcium Level 8.5 8.5-10.1 mg/dl Magnesium Level 2.2 1.8-2.4 mg/dl Total Creatine Kinase 123 26-192 U/L Creatine Kinase MB 3.4 0.5-3.6 ng/ml Creatine Kinase MB Ratio 2.8 0-3.0 Troponin I 1.890 1.800 1.660 0-0.045 ng/ml Valproic Acid (Depakene) Level 39 50-100 mcg/ml Prothrombin Time 30.1 24.1 9.0-12.0 SECONDS Prothromb Time International Ratio 2.7 2.2 0.9-1.1 Hepatitis C Antibody Screen NEG NEG Estimated Average Glucose 120 mg/dl Hemoglobin A1c 5.8 4.5-5.6 % Triglycerides Level 95 0-150 mg/dl Cholesterol Level 184 0-200 mg/dl HDL Cholesterol 42 mg/dl LDL Cholesterol, Calculated 123 mg/dl VLDL Cholesterol, Calculated 19 mg/dl Cholesterol/HDL Ratio 4.4 Assessment and Plan 61 year old female with a PMH of CHF, COPD, Stroke and several other medical ailments presented to [facility] with substernal chest pain and was found to have elevated troponin Chest pain (undiagnosed) - trend troponins, last one was 1.6 (baseline is 1.2-1.5) - admit to telemetry - EKG unchanged from prior - pacemaker - complete echo today - continue aspirin, lipitor and warfarin - ordered Hba1c (5.8) and lipid panel (LDL 123) - Cardiology consulted (Dr. Pete is patients sewing machine operator floorperson) CHF (systolic) - Hx of HOCM and Idiopathic Hypertrophic subaortic sclerosis - Last echo june 2016 45-50% - had open heart surgery over 15 years ago - Dr. Pete is her sewing machine operator floorperson - Continue furosemide, continue metoprolol, cont potassium Atrial Fibrillation - on warfarin 2.5 2x weekly and 5mg 5xweekly - INR 2.2 - repeat in AM - on tele Stroke - 1 year ago - persistent tremor after stroke - on depakote and primidone for tremor COPD - on 3L at night - Duoneb QID - significant smoking hx-put on nicotine patch Depression - continue duloxetine, buspirone Hx Kidney stones - unilateral nephrectomy Peripheral neuropathy - Gabapentin GERD - continue pantoprazole Muscle spasms - carisoprodol Diet - Heart healthy diet Code - Full no mechanical or compressions Continued [facility] stay due to: home environment unsafe for pt
[2017-03-28] MEDS: CARISOPRODOL 350 MG TAB PO PRN ×2 (12:27→15:32)
[2017-03-28] MEDS ORDERED: WARFARIN SOD 5 MG TAB PO SCH (16:00)
--- NOTE | 2017-03-28 16:18 | Discharge Instructions ---
Discharge Instructions Date of Service March 28, 2017. Admission Reason for Admission: Pre Cordial Chest Pain Discharge Discharge Diagnosis / Problem: Chest pain - No concern of Acute coronary syndrome, pain musckuloskeletal Discharge Goals Goal(s): Decrease discomfort Activity Recommendations Activity Limitations: resume your previous activity . Instructions / Follow-Up Instructions / Follow-Up Follow up with family physician in one week Current Hospital Diet Patient's current hospital diet: AHA Diet (Heart Healthy) Discharge Diet Recommended Diet: AHA Diet (Heart Healthy) Pending Studies Studies pending at discharge: no Laboratory Results Hemoglobin A1c Test 03/28/17 07:35 Range/Units Estimated Average Glucose 120 mg/dl Hemoglobin A1c 5.8 H 4.5-5.6 % Lipid Panel Test 03/28/17 07:35 Range/Units Triglycerides Level 95 0-150 mg/dl Cholesterol Level 184 0-200 mg/dl HDL Cholesterol 42 mg/dl Cholesterol/HDL Ratio 4.4 LDL Cholesterol, Calculated 123 mg/dl Medical Emergencies . Who to Call and When: Medical Emergencies: If at any time you feel your situation is an emergency, please call 911 immediately. . Non-Emergent Contact Non-Emergency issues call your: Primary Care Provider . . "Provider Documentation" section prepared by Colleen Roldan. . VTE Core Measure Inpt VTE Proph given/why not?: Warfarin (Coumadin)
[2017-03-28] MEDS ORDERED: PRD20 PO (16:21)
--- NOTE | 2017-03-28 16:36 | ECHOCARDIOGRAM REPORT ---
*NOTICE TO RECEIVING REPUBLICAN AGENCY This information is strictly Confidential and protected under [place] law. [place] law prohibits you from making any further disclosure of this information unless further disclosure is expressly permitted by the written consent of the person to whom it pertains or is authorized by law. A general authorization for the release of medical or other information is not sufficient for this purpose. Hospital accepts no responsibility if the information is made available to any other person, INCLUDING THE PATIENT. Interpretation Summary * Name: HOWARD CHIN Study Date: 03/28/2017 06:47 AM BP: 113/84 mmHg * Patient Location: C.2E\S\E212\S\1 HR: 72 * : 1955 (M/d/yyyy) Gender: Female Height: 62 in * Age: 61 yrs Ethnicity: [place] Weight: 161 lb * Ordering Physician: Polo Hernandez * Referring Physician: Self, Referred * Performed By: Carla Braun * * Reason For Study: CHEST PAIN * BSA: 1.7 m2 * -- Conclusions -- * Left ventricular systolic function is low normal. * Ejection Fraction = 45-50%. * Severe hypertrophy of the anteroseptum with an LVOT gradient of 16 mm Hg consistent with a hypertrophic cardiomyopathy. * Mild aortic regurgitation. * There is mild mitral regurgitation. * There is mild to moderate tricuspid regurgitation. Procedure Details * A complete two-dimensional transthoracic echocardiogram was performed (2D, M-mode, Doppler and color flow Doppler). Left Ventricle * The left ventricular cavity is small. * Ejection Fraction = 45-50%. * Left ventricular systolic function is low normal. * Severe hypertrophy of the anteroseptum with an LVOT gradient of 16 mm Hg consistent with a hypertrophic cardiomyopathy. * There is borderline global hypokinesis of the left ventricle. Right Ventricle * The right ventricle is not well visualized. * The right ventricular systolic function is normal as assessed by tricuspid annular plane systolic excursion (TAPSE) (normal >1.5 cm). Atria * The left atrium is moderately dilated. * Right atrium not well visualized. * There is no evidence of atrial septal defect, but resolution does not allow assessment for a patent foramen ovale. Mitral Valve * The mitral valve is grossly normal. * There is no mitral valve stenosis. * There is mild mitral regurgitation. Tricuspid Valve * The tricuspid valve is not well visualized, but is grossly normal. * There is mild to moderate tricuspid regurgitation. Aortic Valve * The aortic valve is not well visualized. * The aortic valve opens well. * No hemodynamically significant valvular aortic stenosis. * Mild aortic regurgitation. Pulmonic Valve * The pulmonary valve is not well seen, but the Doppler examination is normal without significant regurgitation or stenosis. Great Vessels * The aortic root is normal size. * The pulmonary is not well visualized. Pericardium/Pleural * There is no pericardial effusion. Great Vessels * The inferior vena cava is mildly dilated. Left Ventricular Diastolic Function * Grade I diastolic dysfunction, (abnormal relaxation pattern). MMode 2D Measurements and Calculations IVSd 3.1 cm IVSs 3.5 cm LVIDd 4.5 cm LVIDs 3.4 cm LVPWd 1.4 cm LVPWs 1.7 cm IVS/LVPW 2.3 FS 24.9 % EDV(Teich) 92.3 ml ESV(Teich) 46.6 ml EF(Teich) 49.5 % EDV(cubed) 91.0 ml ESV(cubed) 38.5 ml EF(cubed) 57.7 % % IVS thick 12.6 % % LVPW thick 26.6 % LV mass(C)d 526.7 grams LV mass(C)dI 302.1 grams/m\S\2 LV mass(C)s 500.2 grams LV mass(C)sI 286.9 grams/m\S\2 SV(Teich) 45.7 ml SI(Teich) 26.2 ml/m\S\2 SV(cubed) 52.5 ml SI(cubed) 30.1 ml/m\S\2 ACS 1.4 cm LA dimension 5.7 cm asc Aorta Diam 3.5 cm LVOT diam 1.6 cm LVOT area 2.1 cm\S\2 LVAd ap4 30.4 cm\S\2 LVLd ap4 7.6 cm EDV(MOD-sp4) 98.9 ml EDV(sp4-el) 102.9 ml LVAs ap4 20.7 cm\S\2 LVLs ap4 7.0 cm ESV(MOD-sp4) 51.7 ml ESV(sp4-el) 52.1 ml EF(MOD-sp4) 47.8 % EF(sp4-el) 49.4 % LVAd ap2 26.5 cm\S\2 LVLd ap2 7.6 cm EDV(MOD-sp2) 81.3 ml EDV(sp2-el) 77.9 ml LVAs ap2 16.9 cm\S\2 LVLs ap2 6.6 cm ESV(MOD-sp2) 40.7 ml ESV(sp2-el) 36.8 ml EF(MOD-sp2) 50.0 % EF(sp2-el) 52.8 % LVLd %diff 0 % EDV(MOD-bp) 88.7 ml LVLs %diff -6.08 % ESV(MOD-bp) 46.6 ml EF(MOD-bp) 47.5 % SV(MOD-sp4) 47.2 ml SI(MOD-sp4) 27.1 ml/m\S\2 SV(MOD-sp2) 40.6 ml SI(MOD-sp2) 23.3 ml/m\S\2 SV(MOD-bp) 42.1 ml SI(MOD-bp) 24.1 ml/m\S\2 SV(sp4-el) 50.8 ml SI(sp4-el) 29.1 ml/m\S\2 SV(sp2-el) 41.2 ml SI(sp2-el) 23.6 ml/m\S\2 Doppler Measurements and Calculations MV A max luis manuel 154.2 cm/sec Ao V2 max 209.9 cm/sec Ao max PG 17.6 mmHg Ao max PG (full) 4.4 mmHg MELANIE(V,A) 1.8 cm\S\2 MELANIE(V,D) 1.8 cm\S\2 AI max luis manuel 324.8 cm/sec AI max PG 42.2 mmHg AI dec slope 167.9 cm/sec\S\2 AI P1/2t 566.7 msec LV V1 max PG 13.2 mmHg LV V1 max 181.7 cm/sec PA V2 max 89.0 cm/sec PA max PG 3.2 mmHg TR max luis manuel 260.0 cm/sec
--- NOTE | 2017-03-28 18:21 | Discharge Summary ---
Discharge Summary Date of Service March 28, 2017. (Polo Hernandez MD) Discharge Summary Admission Date: March 27, 2017 at 18:54 Discharge Date: March 28, 2017 Discharge Disposition: Home Principal Diagnosis: Chest Pain Immunizations: Have You Had Influenza Vaccine: Yes Influenza Vaccine Date: Jul 05, 2011 History of Tetanus Vaccine?: No History of Pneumococcal: Yes Pneumococcal Date: Jul 05, 2011 History of Hepatitis B Vaccine: No Consultations: Cardiology (Polo Hernandez MD) Medication Reconciliation New Medications: Prednisone (Prednisone) 20 Mg Tab 20 MG PO DAILY for 3 Days, #3 TAB 2 tablet for one day tomorrow, then one tablet daily for 2 days and then stop Continued Medications: Aspirin (Aspirin Ec) 81 Mg Tab 81 MG PO QAM Atorvastatin (Atorvastatin Calcium) 10 Mg Tab 10 MG PO QAM Buspirone HCl (Buspirone HCl) 15 Mg Tab 15 MG PO BID Wbmhkfbxhg-Ifnsmxmpnaoyg-Uuzne (Esgic) 1 Tab Tab 1 TAB PO UD PRN for Headache TAKE ONE TABLET AT ONSET OF HEADACHE, MAY REPEAT ONE TABLET AFTER 4 HOURS IF NEEDED. DO NOT EXCEED 2 TABLETS IN 24 HOURS OR 4 TABLETS PER WEEK Carisoprodol (Soma) 350 Mg Tab 350 MG PO TID PRN for Muscle Relaxer Cholecalciferol (Vitamin D3) 1,000 Unit Cap 2000 INTER.UNIT PO QAM Divalproex Sodium (Depakote Etended-Release) 500 Mg Tabcr 500 MG PO HS Duloxetine HCl (Duloxetine HCl) 60 Mg Cap 60 MG PO QAM Duloxetine HCl (Duloxetine HCl) 30 Mg Cap 30 MG PO HS Duloxetine HCl (Cymbalta) 30 Mg Cap 30 MG PO QD@1200, CAP Furosemide (Furosemide) 40 Mg Tab 40 MG PO QD@0700 Furosemide (Lasix) 40 Mg Tab 40 MG PO QD@1200, TAB Gabapentin (Gabapentin) 300 Mg Cap 300 MG PO TID Hydrocodone/Acetaminophen ([place] 10/325 Tab) 1 Tab Tab 2 TABS PO TID PRN for Pain Ipratropium-Albuterol (Duoneb) 3 Ml Nebu 1 TREATMENT INH QID PRN for SOB/Wheezing, INHA Metoprolol Tartrate (Lopressor) (Lopressor) 50 Mg Tab 50 MG PO BID Oxygen (Oxygen) Gas 3 LITERS NA UD NEEDED Pantoprazole (Pantoprazole Sodium) 40 Mg Tab 40 MG PO QAM TAKE THIS MEDICATION ONCE DAILY 30 MINUTES BEFORE BREAKFAST Potassium Chloride Microencaps (Potassium Chloride Er) 20 Meq Tab 20 MEQ PO DAILY Primidone (Mysoline) 50 Mg Tab 100 MG PO QPM, TAB Primidone (Primidone) 50 Mg Tab 50 MG PO QAM Prochlorperazine Maleate (Prochlorperazine Maleate) 10 Mg Tab 10 MG PO Q6H PRN for Migraine/Nausea Warfarin Sodium (Warfarin Sodium) 5 Mg Tab 5 MG PO 5XWK, TAB TAKE 5 MG EVERY SUNDAY,SUNDAY,SUNDAY,SUNDAY AND SUNDAY OR OTHERWISE DIRECTED TO TAKE BY ANTICOAGULATION CLINIC/MD Warfarin Sodium (Warfarin Sodium) 5 Mg Tab 2.5 MG PO 2XWK, TAB TAKE HALF A TABLET (2.5 MG) EVERY SUNDAY AND SUNDAY OR OTHERWISE DIRECTED TO TAKE BY ANTICOAGULATION CLINIC/MD Discharge Exam chest pain resolved. has had history of multiple different pain all across the body Review of Systems: Constitutional: No fever Respiratory: No shortness of breath Cardiovascular: No chest pain Abdomen: No pain Physical Exam: General Appearance: no apparent distress Respiratory/Chest: lungs clear, no respiratory distress Cardiovascular: regular rate, rhythm Abdomen / GI: normal bowel sounds, non tender, soft Neurologic/Psychiatric: alert, oriented x 3 Skin: warm/dry (Colleen Roldan M.D.) Hospital Course 61 year old female with a PMH of CHF, COPD, Stroke and several other medical ailments presented to [facility] with substernal chest pain and was found to have elevated troponin Chest pain - trend troponins, last one was 1.6 (baseline between 1.2-->1.5) - EKG unchanged from prior - complete echo showed HOCM and EF of 45-50% - continue aspirin, lipitor and warfarin - ordered Hba1c 5.8 and lipid panel LDL 123 CHF (systolic) - Hx of HOCM and Idiopathic Hypertrophic subaortic sclerosis - Echo with EF 45-50 - Continue furosemide, continue metoprolol, cont potassium Atrial Fibrillation - on warfarin 2.5 2x weekly and 5mg 5xweekly - INR 2.7 - repeat in AM - on tele Stroke - 1 year ago - persistent 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 (Polo Hernandez MD) I have reviewed the medical record and performed a history and physical examination of this patient today. I have discussed the case with Dr Hernandez. The above note reflects my findings, conclusions, and recommendations Chest pain likely MSK. No ACS. outpatient f/u with cardiology ? aspiration with copd exac - Respiratory status back to baseline. Short course of 3 days of prednisone taper. no sign of aspiration noted during the hospital stay. Total Time Spent: Greater than 30 minutes (35) (Colleen Roldan M.D.) Discharge Instructions Please refer to the electronic Patient Visit Report (Discharge Instructions) for additional information. (Polo Hernandez MD) Additional Copies To Milady Valle
[2017-03-28] MEDS ORDERED: DIVALPROEX 500 MG EXTENDED RELEASE TAB PO SCH (21:00)
--- NOTE | 2017-03-28 21:00 | CARDIOLOGY CONSULTATION ---
DATE OF CONSULTATION: 03/28/2017 PERTINENT HISTORY: Mrs. Austin is a 61-year-old white female with a complex past medical history who was admitted yesterday with a chest pain syndrome. This consultation was ordered to assist in her cardiac management. Of note, the patient is typically followed by Dr. Pete in our cardiology clinic and by Dr. Sorto for her device. The patient was in her usual state of health until yesterday approximately 3:00 p.m. when she developed "severe" substernal chest discomfort that made her "cry." She had concurrent shortness of breath and diaphoresis. Denied nausea and vomiting. The patient explains that this was typical of her usual chest pain syndrome which she has had for many years. She explains that the episode prompting evaluation in the Emergency Room yesterday was a bit more severe. She typically experiences 2-3 episodes of substernal chest discomfort as described above everyday. These occur spontaneously both at rest and with exercise. There are not reproducible. She did have a cardiac catheterization in May 2011 for a similar scenario. Fortunately, there is no evidence of coronary artery disease. The patient did have an echocardiogram performed in June 2016, which noted mildly depressed systolic function with an ejection fraction of 45% to 50%. There is severe septal hypertrophy with left ventricular outflow tract gradient of 29 mmHg. There is evidence of mild to moderate aortic insufficiency, mild mitral regurgitation, and diastolic dysfunction. The patient's device was checked in January by Dr. Sorto. There were no ventricular dysrhythmias. Rare episodes of atrial fibrillation noted. Currently, the patient is resting comfortably in bed without complaints. She is anxious for hospital discharge. PAST MEDICAL HISTORY: 1. Hypertrophic obstructive cardiomyopathy. 2. Septal myomectomy - 1999. 3. Dual chamber ICD - 1999, 2008, and June 2014. 4. Paroxysmal atrial fibrillation. 5. History of transient ischemic attack - February 2016. 6. History of pulmonary emboli. 7. Normal coronary arteries - May 2011. 8. Chronic chest pain syndrome. 9. Chronic troponin I elevation. 10. Combined systolic and diastolic congestive heart failure. 11. COPD. 12. Anguiano's esophagus. 13. Migraine headaches. 14. Cholelithiasis . MEDICATIONS: 1. Metoprolol tartrate 50 mg b.i.d. 2. Lasix 40 mg daily. 3. Potassium 20 mEq daily. 4. Lipitor 10 mg at bedtime. 5. Aspirin 81 mg per day. 6. Lasix 40 mg every noon. 7. Coumadin 5 mg daily with 2.5 mg on Sundays and Tuesdays. 8. Depakote 500 mg at bedtime. 9. Cymbalta 30 mg daily. 10. BuSpar 50 mg b.i.d. 11. Cymbalta 60 mg q.a.m. 12. Protonix 40 mg per day. 13. Primidone 50 mg q.a.m. 14. Vitamin D 2000 international units daily. 15. NicoDerm patch. 16. Methylprednisolone 60 mg IV t.i.d. 17. Cymbalta 30 mg at bedtime. 18. Gabapentin 900 mg t.i.d. ALLERGIES: 1. MORPHINE. 2. OXYCODONE. 3. PENICILLIN. SOCIAL HISTORY: The patient is and lives with her . Admits to 1 pack of cigarettes daily. Does not use alcohol. FAMILY HISTORY: Both parents in their 70s from an [place]. She had a son at age 40 from complication of his hypertrophic cardiomyopathy. REVIEW OF SYSTEMS: A 10-point review of systems was negative except for that is described above.. PHYSICAL EXAMINATION: GENERAL: This is a well-developed, well-nourished, white female, in no acute distress. VITAL SIGNS: Blood pressure is 118/77 with regular pulse of 62. Respiratory rate is 22. The patient is afebrile at 36.7 degrees Celsius. Her saturations 99% on room air. HEENT: Negative. NECK: Supple with full carotid upstrokes. No obvious bruits. Jugular venous pressure is flat at 90 degrees. There is no thyromegaly. CARDIOVASCULAR: Reveals a regular rhythm with distant heart sounds. A 1/6 basal systolic ejection murmur is noted. A 2/6 systolic murmur is heard along the left sternal border. No S3 or S4. LUNGS: Clear without rales, rhonchi, or wheezes. ABDOMEN: Soft, nontender without bruits. CHEST: Reveals a palpable device in the right subclavicular region. EXTREMITIES: Reveal intact radial artery pulses bilaterally. There is no peripheral edema. DATA: CBC notes hemoglobin 13.7, hematocrit 40.7, white count 6.2, platelet count 222,000. Electrolytes note a sodium of 135, potassium 4.4, chloride 97, bicarbonate 33, BUN 7, creatinine 0.8, glucose 97. Initial troponin was 1.89 with followup values of 1.8 and 1.66. CK is 123 with an MB fraction of 34. INR is therapeutic at 2.2. LDL cholesterol is 123 with an HDL of 42. Initial EKG notes atrial ventricular pacing. Followup EKG notes atrial sensing and ventricular pacing. Chest x-ray shows no acute disease, but evidence of cardiomegaly and a right-sided device. A sternotomy is noted. Echocardiogram from June is described above. IMPRESSION: Mrs. Austin was admitted with another episode of her chronic chest pain syndrome. Again, her troponin I levels are mildly elevated. The patient is completely stable and her chest pain has previously been felt secondary to her cardiomyopathy. The case has been discussed with Dr. Pete. If she is stable with ambulation, I feel she can be discharged from the hospital today. PLAN: 1. Ambulate on current medical regimen. 2. Stable for hospital discharge if no reproducible or exertional symptoms.
--- NOTE | 2017-03-29 11:44 | EDITING REQUIRED CODING QUERY ---
CODING QUERY To promote full compliance with coding requirements relating to patient care, provider participation is requested in all cases of auditing coder uncertainty. Please assist us with the question(s) below: Coding Question(s): The Cardiology Consult on 03/28/17 documents the patient was admitted with another episode of her chronic chest pain syndrome and says that her chest pain has previously been felt secondary to her cardiomyopathy. The patient has history of Hypertrophic Obstructive Cardiomyopathy. The Discharge Summary documents chest pain and documents that complete echo showed [facility]. Please clarify below, in your clinical opinion, regarding the likely source of the chest pain. ( x ) Chest Pain is likely from Hypertrophic Obstructive Cardiomyopathy ( ) Chest Pain is likely from other source - Specify__ ( ) Chest Pain with unknown likely source Physician's Response(s): Thank you Peace Herman Principal Diagnosis: "_that condition established after study, to be chiefly responsible for occasioning the admission of the patient to the hospital for care." Co-Existing Principal Diagnosis: "_when two or more diagnoses equally meet the criteria for principal diagnosis as determined by the circumstances of admission, diagnostic work up, and/or therapy provided, and the Alphabetic Index, Tabular List, or another coding guideline does not provide sequencing direction, any one of the diagnoses may be sequenced first." "When the physician has documented what appears to be a current diagnosis in the body of the record, but has not included the diagnosis in the final diagnostic statement, the physician should be asked whether the diagnosis should be added." ([facility] 2 QTR90. p3-4)
[2017-04-01] MEDS ORDERED: WARFARIN SOD 2.5 MG TAB PO SCH (16:00)
--- NOTE | 2017-04-06 07:53 | EDITING REQUIRED CODING QUERY ---
CODING QUERY To promote full compliance with coding requirements relating to patient care, provider participation is requested in all cases of machine container washer uncertainty. Please assist us with the question(s) below: Coding Question(s): Please clarify below regarding the chest pain. The first Query has been placed and answered but not yet signed off on 03/29/17 at 1130, however the Discharge Summary was signed off 03/29/17 a little later at 1441, and this query is for clarification. The first query answer showed chest pain from Angina and Discharge Summary documents "Chest pain likely MSK. No ACS. outpatient f/u with cardiology ? aspiration with copd exac - Respiratory status back to baseline. Short course of 3 days of prednisone taper. no sign of aspiration noted during the hospital stay.". ( x ) Chest pain was likely Musculoskeletal. No ACS. Possible Aspiration Pneumonia with COPD Exacerbation. ( ) Chest pain is Angina - no possible Aspiration Pneumonia with COPD Exacerbation ( ) Other: Specify Physician's Response(s): Thank you Peace Herman Principal Diagnosis: "_that condition established after study, to be chiefly responsible for occasioning the admission of the patient to the hospital for care." Co-Existing Principal Diagnosis: "_when two or more diagnoses equally meet the criteria for principal diagnosis as determined by the circumstances of admission, diagnostic work up, and/or therapy provided, and the Alphabetic Index, Tabular List, or another coding guideline does not provide sequencing direction, any one of the diagnoses may be sequenced first." "When the physician has documented what appears to be a current diagnosis in the body of the record, but has not included the diagnosis in the final diagnostic statement, the physician should be asked whether the diagnosis should be added." (Source [facility]oding [facility] 2 QTR90. p3-4)
== END 2017-03-28 17:30 | disposition home or self-care (01) | DRG 314 ==
LOC: ENRESERVTM → ENRESERVDT → EDBD 15:05 → C.EDC 15:06 → C.2E 18:54
PROVIDERS: ADMIT Family Medicine; ATTEND Family Medicine
DX: I42.1 Obstructive hypertrophic cardiomyopathy (principal); J69.0 Pneumonitis due to inhalation of food and vomit; J44.1 Chronic obstructive pulmonary disease with (acute) exacerbation; I50.22 Chronic systolic (congestive) heart failure; R07.89 Other chest pain; R78.89 Finding of other specified substances, not normally found in blood; J44.9 Chronic obstructive pulmonary disease, unspecified; I25.2 Old myocardial infarction; I69.398 Other sequelae of cerebral infarction; R25.1 Tremor, unspecified; I48.0 Paroxysmal atrial fibrillation; F32.9 Major depressive disorder, single episode, unspecified; G62.9 Polyneuropathy, unspecified; K21.9 Gastro-esophageal reflux disease without esophagitis; M62.838 Other muscle spasm; F17.210 Nicotine dependence, cigarettes, uncomplicated; Z79.899 Other long term (current) drug therapy; Z79.01 Long term (current) use of anticoagulants; Z79.82 Long term (current) use of aspirin; Z95.810 Presence of automatic (implantable) cardiac defibrillator; Z90.5 Acquired absence of kidney; Z86.711 Personal history of pulmonary embolism; Z87.442 Personal history of urinary calculi; Z82.49 Family history of ischemic heart disease and other diseases of the circulatory system; Z82.3 Family history of stroke

== ENCOUNTER → 2017-08-20 | Outpatient (CLI) | payer OTHER ==
[~2017-08-20] MED LIST changes: +ASPI81TA28 PO; -ATOR10TA82 PO; +BSP15 PO; +CHOL1CAP57 PO; +CMP/10 PO; +CYM/30 PO; +CYM30 PO; +CYM60 PO; -DIVA250T PO; -DIVA500T3 PO; +DPKSR/500 PO; +FRS/40 PO; +GABA1CAP4 PO; +HYDR-4383 PO; -HYDR-5688 PO; +IPRASOL4 INH; +LPT10 PO; +METO50TA16 PO; +MYS50 PO; -NRN800 PO; +OXGN; -OXYC1TAB3 PO; +PANT40TA2 PO; +POTA20TA13 PO; -POTA20TA16 PO; +PRD20 PO; -PROC1TAB5 PO; -VNTHFA/IN INH
--- NOTE | 2017-08-20 12:40 | DIAGNOSTIC IMAGING REPORT ---
CHEST 2 VIEWS ROUTINE HISTORY: 62 years-old Female COPD EXACERBATION symptoms are acute COMPARISON: Chest radiograph 03/27/2017, CTA of the chest 04/14/2015 TECHNIQUE: PA and lateral views of the chest FINDINGS: Cardiac silhouette is moderately enlarged. Prior median sternotomy. Right subclavian pacer/AICD is present with 4 total leads overlying the right atrium and right ventricle. Leads appear intact. Mild biapical pleural-parenchymal scarring. Emphysematous changes are noted with areas of chronic background interstitial coarsening. No pneumothorax, pleural effusion or focal airspace consolidation. The bones of the chest are grossly intact. IMPRESSION: 1. Mild cardiomegaly without acute cardiopulmonary process. 2. Emphysema with chronic background interstitial coarsening. The above report was generated using voice recognition software. It may contain grammatical, syntax or spelling errors. Electronically signed by: Yadiel Araujo M.D. 08/20/2017 12:38 PM Dictated Date/Time: 08/20/2017 12:36 PM
--- NOTE | 2017-08-20 12:54 | DIAGNOSTIC IMAGING REPORT ---
L-SPINE MIN 4 VIEWS ROUTINE HISTORY: 62 years-old Female COPD EXACERBATION acute low back pain COMPARISON: CT 08/28/2016 TECHNIQUE: 5 views of the lumbar spine FINDINGS: 17 degrees dextroscoliosis of the lumbar spine measured from L2-L4. Bones are mildly demineralized. There is no acute fracture or subluxation. Multilevel intervertebral disc space narrowing, facet arthropathy and spondylitic changes which is moderate to severe. Intervertebral disc space narrowing is seen most pronounced at L1-L2 with endplate sclerosis. Basilar calcifications are noted. At least mild degenerative changes of the bilateral hips. IMPRESSION: 1. No acute fracture or subluxation of the lumbar spine. 2. 17 degrees dextroscoliosis. 3. Moderate to severe multilevel intervertebral disc space narrowing, facet arthropathy and spondylitic changes of the spine. The above report was generated using voice recognition software. It may contain grammatical, syntax or spelling errors. Electronically signed by: Yadiel Araujo M.D. 08/20/2017 12:52 PM Dictated Date/Time: 08/20/2017 12:50 PM
== END | disposition home or self-care (01) ==
LOC: C.RAD1850 11:05
PROVIDERS: ATTEND Nurse Practitioner Family
DX: J44.1 Chronic obstructive pulmonary disease with (acute) exacerbation (principal); M51.37 Other intervertebral disc degeneration, lumbosacral region; G89.4 Chronic pain syndrome

== ENCOUNTER → 2017-09-18 | Outpatient (CLI) | payer OTHER ==
[~2017-09-18] MED LIST changes: +DULO60CA44 PO; +LEVO1TAB33 PO; +WARF5TAB7 PO
--- NOTE | 2017-09-18 12:53 | DIAGNOSTIC IMAGING REPORT ---
CHEST 2 VIEWS ROUTINE HISTORY: Short of breath. Cough. COMPARISON: Chest 08/20/2017. FINDINGS: The heart remains mildly enlarged. The lungs are clear. No pleural effusions. No pneumothorax. Right-sided pacemaker/defibrillator is again noted. There are poststernotomy changes. IMPRESSION: No significant change compared to the prior study. No acute process. Stable mild cardiomegaly. Electronically signed by: Juan Carlos Lombardi M.D. 09/18/2017 12:52 PM Dictated Date/Time: 09/18/2017 12:44 PM
== END | disposition home or self-care (01) ==
LOC: C.RAD 11:46
PROVIDERS: ATTEND Nurse Practitioner Family
DX: J44.1 Chronic obstructive pulmonary disease with (acute) exacerbation (principal); R09.3 Abnormal sputum

== ENCOUNTER 2017-09-24 13:35 | Inpatient (IN) | payer OTHER ==
[~2017-09-24] VITALS: Ht 157.5 cm; Wt 73.3 kg
[~2017-09-24 13:35] MED LIST changes: -DULO60CA44 PO; -LEVO1TAB33 PO; -WARF5TAB7 PO
[2017-09-24] MEDS ORDERED: METHYLPREDNISOLONE 125 MG VIAL IV STA (13:50)
[2017-09-24] MEDS ORDERED: ALBUT/IPRATROP 3MG/0.5MG NEB 3 ML VIAL INH STA (13:50)
[2017-09-24] MEDS ORDERED: ALBUT/IPRATROP 3MG/0.5MG NEB 3 ML VIAL INH ONE (14:00)
--- NOTE | 2017-09-24 14:23 | DIAGNOSTIC IMAGING REPORT ---
CHEST ONE VIEW PORTABLE HISTORY: 62 years-old Female EVALUATE RESPIRATORY DISTRESS.DYSPNEA acute respiratory distress with cough COMPARISON: Chest radiograph 09/18/2017 TECHNIQUE: Portable upright AP view of the chest FINDINGS: Cardiac silhouette is again mildly enlarged. Opacity measuring up to 5.4 cm along the left lung base correlates with Bochdalek hernia. Prior median sternotomy. Right pectoral pacer/AICD is noted with leads intact. There is no pneumothorax or pleural effusion. Linear subsegmental left basilar opacities are noted compatible with atelectasis or scarring. No lobar airspace consolidation. Prior ORIF of the right humerus. IMPRESSION: 1. Cardiomegaly without acute cardiopulmonary process. 2. Moderate sized left Bochdalek hernia redemonstrated. The above report was generated using voice recognition software. It may contain grammatical, syntax or spelling errors. Electronically signed by: Yadiel Araujo M.D. 09/24/2017 2:22 PM Dictated Date/Time: 09/24/2017 2:19 PM
[2017-09-24] MEDS ORDERED: WARF5TAB7 PO (14:33)
[2017-09-24] MEDS ORDERED: LEVO1TAB33 PO (14:33)
[2017-09-24] MEDS ORDERED: DULO60CA44 PO (14:33)
--- NOTE | 2017-09-24 14:34 | EMERGENCY ROOM VISIT NOTE ---
History First contact with patient: 13:43 Chief Complaint: COUGH Stated Complaint: COUGHING Nursing Triage Summary: pt ot the ED from PMD office to be admitted for cough and low pulse ox pt states that she has a cough but can't cough anything up History of Present Illness The patient is a 62 year old female who presents to the Emergency Room with complaints of cough and shortness of breath for the past month that has gotten worse over the past few days. She states the shortness of breath is worse with any exertion, and also worse if she lays flat. Patient states that she has seen her primary care provider multiple times over the past month for these issues, she has been on 2 courses of antibiotics without improvement. She has also been using her inhalers and nebulizer with minimal improvement. She had a follow-up appointment with her PCP today, she was found to have a walking sat of 82% and was very short of breath, she was therefore sent to the ED for further evaluation and most likely to be admitted. Patient has a significant past medical history for [] placement of a right chest pacemaker, COPD, continues to be a one pack per day smoker. She does use 3 L of oxygen at home, but she states this is only for at nighttime when she sleeps, she has not been using any oxygen during the day at baseline. Patient denies any fevers or chills, but states she has been feeling poorly and generally weak. She denies any chest pain Review of Systems A complete 10 point review of systems was reviewed with the patient with pertinent positives and negatives as per history of present illness. All else were negative. Past Medical/Surgical History Medical Problems: (1) Abdominal pain (2) CHF (congestive heart failure) (3) COPD (chronic obstructive pulmonary disease) (4) H/O cardiac pacemaker (5) H/O unilateral nephrectomy (6) History of - pulmonary embolus (7) Kidney stones (8) Myocardial infarction (9) SOB (shortness of breath) (10) Stroke-like symptoms Surgical Problems: (1) AICD (automatic cardioverter/defibrillator) present Family History No significant family history Social History Smoking Status: Current Every Day Smoker Alcohol Use: none Drug Use: none Marital Status: Housing Status: lives with family Occupation Status: unemployed Current/Historical Medications Scheduled Aspirin (Aspirin Ec), 81 MG PO QAM Atorvastatin (Atorvastatin Calcium), 10 MG PO QAM Buspirone HCl (Buspirone HCl), 15 MG PO BID Cholecalciferol (Vitamin D3), 2,000 INTER.UNIT PO QAM Divalproex Sodium (Depakote Etended-Release), 500 MG PO HS Duloxetine Hcl (Cymbalta), 60 MG PO DAILY Furosemide (Furosemide), 40 MG PO BID Gabapentin (Gabapentin), 900 MG PO TID Home O2 Therapy (Oxygen), 3 LITERS NA UD Levofloxacin (Levaquin), 500 MG PO DAILY Metoprolol Tartrate (Lopressor) (Lopressor), 50 MG PO BID Pantoprazole (Pantoprazole Sodium), 40 MG PO QAM Potassium Chloride Microencaps (Potassium Chloride Er), 20 MEQ PO DAILY Primidone (Mysoline), 100 MG PO QPM Primidone (Primidone), 50 MG PO QAM Warfarin Sod (Jantoven), 5 MG PO UD Scheduled PRN Ijlqpbahla-Gmozlkewgyelb-Jntqe (Esgic), 1 TAB PO UD PRN for Headache Carisoprodol (Soma), 350 MG PO TID PRN for Muscle Relaxer Hydrocodone/Acetaminophen ([place]son 10/325 Tab), 2 TABS PO TID PRN for Pain Ipratropium-Albuterol (Duoneb), 1 TREATMENT INH QID PRN for SOB/Wheezing Prochlorperazine Maleate (Prochlorperazine Maleate), 10 MG PO Q6H PRN for Migraine/Nausea Physical Exam Vital Signs Date Time Temp Pulse Resp B/P (MAP) Pulse Ox O2 Delivery O2 Flow Rate FiO2 09/24/17 16:10 68 22 142/76 94 Nasal Cannula 3.0 Nebulizer 09/24/17 15:09 72 22 134/76 99 Nasal Cannula 09/24/17 15:06 76 22 99 Nasal Cannula 2.0 09/24/17 13:54 65 09/24/17 13:51 94 Room Air 09/24/17 13:37 36.7 106 22 95/67 98 Physical Exam CONSTITUTIONAL: No acute distress. Dehydrated. Alert and oriented X 4 with normal affect. HEENT: Normocephalic, atraumatic. Pupils equal, round and reactive to light, EOMI. TMs normal. Pharynx normal. Dry mucous membranes. NECK: Supple, full active range of motion without discomfort. RESPIRATORY: Diminished throughout especially in the bases, with expiratory wheezing and rhonchi. No crackles or or stridor heard. Equal expansion bilaterally. Mildly tachypneic. No accessory muscle use noted. CARDIOVASCULAR: Ventricular-paced rhythm noted on monitor. Regular rate and rhythm with no murmurs, rubs or gallops. Normal peripheral perfusion. 1+ pitting edema bilaterally. CHEST WALL: Right chest wall palpable pacemaker, no swelling or tenderness noted in the area. No chest wall tenderness to palpation. No palpable crepitus. GASTROINTESTINAL: Soft, nontender, nondistended. Bowel sounds present in all quadrants. MUSCULOSKELETAL: Full range of motion of all joints without discomfort. INTEGUMENTARY: No rash or other significant dermatologic conditions noted. NEUROLOGIC: Cranial nerves II-XII grossly intact. No focal neurologic deficits noted. Medical Decision & Procedures ER Provider Diagnostic Interpretation: CHEST ONE VIEW PORTABLE HISTORY: 62 years-old Female EVALUATE RESPIRATORY DISTRESS.DYSPNEA acute respiratory distress with cough COMPARISON: Chest radiograph 09/18/2017 TECHNIQUE: Portable upright AP view of the chest FINDINGS: Cardiac silhouette is again mildly enlarged. Opacity measuring up to 5.4 cm along the left lung base correlates with Bochdalek hernia. Prior median sternotomy. Right pectoral pacer/AICD is noted with leads intact. There is no pneumothorax or pleural effusion. Linear subsegmental left basilar opacities are noted compatible with atelectasis or scarring. No lobar airspace consolidation. Prior ORIF of the right humerus. IMPRESSION: 1. Cardiomegaly without acute cardiopulmonary process. 2. Moderate sized left Bochdalek hernia redemonstrated. Laboratory Results 09/24/17 14:17 Red Blood Count 3.76, Mean Corpuscular Volume 98.1, Mean Corpuscular Hemoglobin 33.5, Mean Corpuscular Hemoglobin Concent 34.1, Mean Platelet Volume 10.9, Neutrophils (%) (Auto) 66.0, Lymphocytes (%) (Auto) 25.0, Monocytes (%) (Auto) 7.9, Eosinophils (%) (Auto) 0.5, Basophils (%) (Auto) 0.4, Neutrophils # (Auto) 5.62, Lymphocytes # (Auto) 2.13, Monocytes # (Auto) 0.67, Eosinophils # (Auto) 0.04, Basophils # (Auto) 0.03 09/24/17 14:17 Test 09/24/17 14:17 09/24/17 14:34 White Blood Count 8.51 K/uL (4.8-10.8) Red Blood Count 3.76 M/uL (4.2-5.4) Hemoglobin 12.6 g/dL (12.0-16.0) Hematocrit 36.9 % (37-47) Mean Corpuscular Volume 98.1 fL (80-100) Mean Corpuscular Hemoglobin 33.5 pg (25-34) Mean Corpuscular Hemoglobin Concent 34.1 g/dl (32-36) Platelet Count 224 K/uL (130-400) Mean Platelet Volume 10.9 fL (7.4-10.4) Neutrophils (%) (Auto) 66.0 % Lymphocytes (%) (Auto) 25.0 % Monocytes (%) (Auto) 7.9 % Eosinophils (%) (Auto) 0.5 % Basophils (%) (Auto) 0.4 % Neutrophils # (Auto) 5.62 K/uL (1.4-6.5) Lymphocytes # (Auto) 2.13 K/uL (1.2-3.4) Monocytes # (Auto) 0.67 K/uL (0.11-0.59) Eosinophils # (Auto) 0.04 K/uL (0-0.5) Basophils # (Auto) 0.03 K/uL (0-0.2) RDW Standard Deviation 52.1 fL (36.4-46.3) RDW Coefficient of Variation 14.7 % (11.5-14.5) Immature Granulocyte % (Auto) 0.2 % Immature Granulocyte # (Auto) 0.02 K/uL (0.00-0.02) Prothrombin Time 21.5 SECONDS (9.0-12.0) Prothromb Time International Ratio 2.0 (0.9-1.1) Activated Partial Thromboplast Time 39.5 SECONDS (21.0-31.0) Partial Thromboplastin Ratio 1.5 Anion Gap 8.0 mmol/L (3-11) Est Creatinine Clear Calc Drug Dose 53.5 ml/min Estimated GFR () 71.2 Estimated GFR (Non- 61.4 BUN/Creatinine Ratio 7.8 (10-20) Calcium Level 9.0 mg/dl (8.5-10.1) Magnesium Level 1.6 mg/dl (1.8-2.4) Total Bilirubin 0.4 mg/dl (0.2-1) Aspartate Amino Transf (AST/SGOT) 15 U/L (15-37) Alanine Aminotransferase (ALT/SGPT) 10 U/L (12-78) Alkaline Phosphatase 134 U/L (45-117) Troponin I 1.980 ng/ml (0-0.045) Pro-B-Type Natriuretic Peptide 5562 pg/ml (0-900) Total Protein 7.0 gm/dl (6.4-8.2) Albumin 2.9 gm/dl (3.4-5.0) Globulin 4.1 gm/dl (2.5-4.0) Albumin/Globulin Ratio 0.7 (0.9-2) Lactic Acid Level 1.0 mmol/L (0.4-2.0) Medications Administered Medications (Trade) Dose Ordered Sig/Johnie Route Start Time Stop Time Status Last Admin Dose Admin Methylprednisolone Sodium Succinate (Solu-Medrol IV) 125 mg NOW STAT IV 09/24/17 13:50 09/24/17 13:55 DC 09/24/17 13:50 125 MG Albuterol/ Ipratropium (Duoneb) 12 ml ONE ONCE INH 09/24/17 14:00 09/24/17 14:01 DC 09/24/17 14:00 12 ML Acetaminophen (Tylenol Tab) 650 mg NOW STAT PO 09/24/17 14:42 09/24/17 14:45 DC 09/24/17 14:42 650 MG Sodium Chloride 500 ml @ 999 mls/hr Q31M STAT IV 09/24/17 15:18 09/24/17 15:48 DC 09/24/17 15:18 999 MLS/HR Potassium Chloride 10 meq/ Prmx 100 ml @ 100 mls/hr Q1H IV 09/24/17 15:45 09/24/17 17:44 09/24/17 15:45 100 MLS/HR ECG Indication: SOB/dyspnea Rate (beats per minute): 70 Rhythm: other (ventricular-paced rhythm) Findings: PVC (occasional) Change: no significant change (PVCs are now present, no other significant changes compared to EKG from 03/28/2017) Medical Decision CC: Patient presenting with complaint of cough, shortness of breath, low oxygen Interpretation of Labs: No leukocytosis, no concerning anemia, multiple electrolyte abnormalities including hypokalemia, hyponatremia, hypomagnesemia, hypercarbia, normal renal function, normal liver enzymes. Therapeutic INR. Normal lactic acid. Differential Diagnosis: Includes, but not limited to COPD exacerbation, CHF exacerbation, pneumonia, bronchitis, PE, dehydration, elected abnormality, acute renal failure, ACS, pleural effusion, pulmonary edema, dysrhythmia, pneumothorax, among others. Medication Reconciliation: I attest that I have personally reviewed the patient' s current medication list. Vital signs review: I reviewed the patient's vital signs and interpret them as follows: T: Afebrile; BP: Hypotensive; HR: Tachycardic; RR: Mildly Tachypneic ; Pulse Ox: Within normal limits on room air. Summary: Patient was evaluated at bedside, history and physical exam performed. Patient is alert and in no acute distress. She has a deep, congested sounding cough that she states has been nonproductive. She has diminished lung sounds with expiratory wheezing in all lung snow. She is mildly tachypneic, but does not demonstrate use of accessory muscles or any significant work of breathing. She is noted to be 93% on room air at rest, though her PCP did document an ambulatory sat of 82%. EKG reviewed at bedside, ventricular paced rhythm with occasional PVCs. Orders were placed at bedside for labs, UA, hour-long DuoNeb, IV Solu-Medrol, chest x-ray to evaluate for cardiopulmonary disease. Patient discussed with Dr. Dacosta, who agrees with my assessment and plan. Labs reviewed as above, notable for elevated troponin and BNP, however these appear to be chronically elevated and patient does have a history of this. Multiple electrolytic abnormalities, most significantly hypokalemia with accompanying hypomagnesemia. Oral and IV replacement ordered. Chest x-ray with no evidence of pulmonary edema or pneumonia. Patient complaining of low back pain after having her chest x-ray done, Tylenol was ordered. On reassessment, she states that Tylenol is not helping, she is requesting oxycodone, which she states that she is able to tolerate in spite of this being on her allergy list, she states it just makes her drowsy and nauseated. On reexamination of the lungs, she is moving better air, with increased wheezing , sats are now 97% on room air after nebulizer treatments, and she states her breathing feels overall slightly improved. Patient was discussed with Dr. Goldstein, hospitalist, regarding admission for COPD exacerbation and hypokalemia, he agrees to admit the patient. Patient updated on all results and plan for admission to the hospital, she verbalized understanding and was agreeable to this plan. Patient was in stable condition at time of admission. Head Trauma GCS Score: 15 Medication Reconcilliation Current Medication List: was personally reviewed by me Blood Pressure Screening Initial blood pressure was low, subsequent blood pressures are normal to high Impression Primary Impression: COPD exacerbation Additional Impression: Hypokalemia Departure Information Dispostion Admitted as an inpatient Condition FAIR Referrals Milady Valle (PCP) Patient Instructions My [facility] Health Problem Qualifiers
[2017-09-24] MEDS ORDERED: ACETAMINOPHEN 325 MG TAB PO STA (14:42)
[2017-09-24 14:49] LABS: BASO % 0.4 %; BASO ABS # 0.03 K/uL (0-0.2); COMPLETE YES; EOS % 0.5 %; HEMATOCRIT 36.9 % (37-47); IG% 0.2 %; LYMPH ABS # 2.13 K/uL (1.2-3.4); MEAN CELL VOLUME 98.1 fL (80-100); MEAN CORPUSCULAR HEMOGLOBIN 33.5 pg (25-34); MEAN CORPUSCULAR HGB CONC 34.1 g/dl (32-36); MEAN PLATELET VOLUME 10.9 fL (7.4-10.4); MONO % 7.9 %; PLATELET COUNT 224 K/uL (130-400); RED BLOOD COUNT 3.76 M/uL (4.2-5.4); WHITE BLOOD COUNT 8.51 K/uL (4.8-10.8)
[2017-09-24 14:58] LABS: PARTIAL THROMBOPLASTIN RATIO 1.5; PROTHROMBIN TIME (PATIENT) 21.5 SECONDS (9.0-12.0)
[2017-09-24 15:06] VITALS: PULSE 76; O2SAT 99
[2017-09-24 15:10] LABS: BUN/CREATININE RATIO 7.8 (10-20); CREATININE 0.98 mg/dl (0.60-1.20); POTASSIUM 2.6 mmol/L (3.5-5.1)
[2017-09-24] MEDS ORDERED: POTASSIUM CHLORIDE 10 MEQ TABCR PO STA (15:17)
[2017-09-24] MEDS ORDERED: SODIUM CHLORIDE 0.9% 500ML 500 ML IV STA (15:18)
[2017-09-24 15:19] LABS: ALB/GLOB RATIO 0.7 (0.9-2)
[2017-09-24] MEDS ORDERED: POTASSIUM CHLORIDE 10 MEQ / 100ML WTR IV STA (15:30)
[2017-09-24] MEDS ORDERED: OXYCODONE HCL IR 5 MG TAB (IMMEDIATE RELEASE) PO STA (15:36)
[2017-09-24] MEDS ORDERED: MAGNESIUM SULFATE 1GM / D5W 1 GM BAG IV STA (15:38)
[2017-09-24] MEDS: POTASSIUM CHLR 10MEQ / WTR IV SCH ×2 (15:45→16:45)
[2017-09-24] MEDS ORDERED: MAGNESIUM HYDROXIDE SUSP 30 ML UDC PO PRN (17:00)
[2017-09-24] MEDS ORDERED: PROCHLORPERAZINE MALEATE 10 MG TAB PO PRN (17:00)
[2017-09-24] MEDS ORDERED: POLYETHYLENE (MIRALAX) 17 GM PACK PO PRN (17:00)
[2017-09-24] MEDS ORDERED: BUTALBITAL/ACETAMIN/CAFFEINE TAB PO PRN (17:00)
[2017-09-24] MEDS ORDERED: ACETAMINOPHEN 325 MG TAB PO PRN (17:00)
[2017-09-24] MEDS ORDERED: ONDANSETRON INJ 2 MG/ML 2 ML VIAL IV PRN (17:00)
[2017-09-24] MEDS ORDERED: ALUMINUM/MAGNESIUM/SIMETH (MAALOX MAX) 30 ML UDC PO PRN (17:00)
[2017-09-24] MEDS ORDERED: OXYCODONE HCL IR 5 MG TAB (IMMEDIATE RELEASE) PO PRN (18:30)
--- NOTE | 2017-09-24 18:48 | History and Physical ---
History & Physical Date & Time of Service: Sep 24, 2017 at 18:24 Chief Complaint: Coughing Primary Care Physician: Milady Valle History of Present Illness Source: patient, family Ms. Austin is a 62 year old lady with a past medical history of COPD, CHF, CAD, AICD implantation, paroxsymal atrial fibrillation, HOCM, chronically elevated troponin, chronic back pain, GERD, depression, and prior stroke with residual tremor who presented with a 1 month history of cough and SOB that worsened over the last ten days. Her PCP sent her over as her O2 sats were 82% in the office. She had seen her PCP who prescribed her an antibiotic (she is unable to recall the name) - she finished this course and saw her GP again who prescribed a ten day course of Levaquin, of which she has completed 7 days. With regards to her cough, she states it is nonproductive, with no blood either. She states she is also SOB occasionally, and uses 3L of oxygen at home overnight, and intermittently when she feels SOB during the day. She normally uses her inhalers once a day, but has had to use them three times a day to help alleviate her symptoms. She denies fever, chills, nausea, vomiting, chest pain. Past Medical/Surgical History Medical Problems: (1) CHF (congestive heart failure) Status: Chronic (2) COPD (chronic obstructive pulmonary disease) Status: Chronic (3) H/O cardiac pacemaker Status: Chronic (4) H/O unilateral nephrectomy Status: Resolved (5) History of - pulmonary embolus Status: Resolved (6) Kidney stones Status: Resolved (7) Myocardial infarction Status: Resolved Surgical Problems: (1) AICD (automatic cardioverter/defibrillator) present Status: Chronic Family History No significant family history Social History Smoking Status: Current Every Day Smoker Drug Use: none Marital Status: Housing status: lives with family Occupational Status: unemployed Immunizations History of Influenza Vaccine: Yes Influenza Vaccine Date: Jul 05, 2011 History of Tetanus Vaccine?: No History of Pneumococcal: Yes Pneumococcal Date: Jul 05, 2011 History of Hepatitis B Vaccine: No Multi-Drug Resistant Organisms History of MDRO: No Allergies Coded Allergies: Penicillins (Verified Allergy, Severe, HIVES, 09/24/17) Nitroglycerin (Verified Allergy, Unknown, TOLD NOT TO TAKE BY CARDIOLOGY, 09/24/17) Morphine (Verified Adverse Reaction, Unknown, HALLUCINATE, 09/24/17) Oxycodone (Verified Adverse Reaction, Unknown, FROM PERCOCET-ITCHING, ) Home Medications Scheduled Aspirin (Aspirin Ec), 81 MG PO QAM Atorvastatin (Atorvastatin Calcium), 10 MG PO QAM Azithromycin (Azithromycin), 250 MG PO QAM Buspirone HCl (Buspirone HCl), 15 MG PO BID Cholecalciferol (Vitamin D3), 2,000 INTER.UNIT PO QAM Divalproex Sodium (Depakote Etended-Release), 500 MG PO HS Duloxetine Hcl (Cymbalta), 60 MG PO DAILY Furosemide (Furosemide), 40 MG PO BID Gabapentin (Gabapentin), 900 MG PO TID Gabapentin (Gabapentin), 1,200 MG PO TID Home O2 Therapy (Oxygen), 3 LITERS NA UD Metoprolol Tartrate (Lopressor) (Lopressor), 50 MG PO BID Pantoprazole (Pantoprazole Sodium), 40 MG PO QAM Potassium Chloride Microencaps (Potassium Chloride Er), 20 MEQ PO DAILY Prednisone Tab (Prednisone), 10 MG PO DIRECTED Primidone (Mysoline), 100 MG PO QPM Primidone (Primidone), 50 MG PO QAM Warfarin Sod (Jantoven), 5 MG PO UD Scheduled PRN Ypsfrxhgng-Efztxvudejmvh-Vgnja (Esgic), 1 TAB PO UD PRN for Headache Carisoprodol (Soma), 350 MG PO TID PRN for Muscle Relaxer Hydrocodone/Acetaminophen ([place] 10/325 Tab), 2 TABS PO TID PRN for Pain Ipratropium-Albuterol (Duoneb), 1 TREATMENT INH QID PRN for SOB/Wheezing Prochlorperazine Maleate (Prochlorperazine Maleate), 10 MG PO Q6H PRN for Migraine/Nausea Review of Systems Constitutional: + weakness, + fatigue, No fever, No chills Respiratory: + cough, + wheezing, + dyspnea on exertion, No sputum, No shortness of breath Cardiovascular: + chest pain Abdomen: No pain, No nausea, No vomiting, No diarrhea Physical Exam Vital Signs Date Time Temp Pulse Resp B/P (MAP) Pulse Ox O2 Delivery O2 Flow Rate FiO2 09/24/17 17:48 72 18 137/72 97 Nasal Cannula 3.0 Nebulizer 09/24/17 16:10 68 22 142/76 94 Nasal Cannula 3.0 Nebulizer 09/24/17 15:09 72 22 134/76 99 Nasal Cannula 09/24/17 15:06 76 22 99 Nasal Cannula 2.0 09/24/17 13:54 65 09/24/17 13:51 94 Room Air 09/24/17 13:37 36.7 106 22 95/67 98 General Appearance: WD/WN, + pertinent finding (tremors) ENT: normal ENT inspection Respiratory/Chest: chest non-tender, no respiratory distress, no accessory muscle use, + decreased breath sounds, + rhonchi, + wheezing Cardiovascular: regular rate, rhythm, no edema, no gallop, no JVD, no murmur, normal peripheral pulses Abdomen/GI: normal bowel sounds, non tender, soft, no organomegaly, no pulsatile mass Diagnostics Laboratory Results Results Past 24 Hours Test 09/24/17 14:17 09/24/17 14:34 Range/Units White Blood Count 8.51 4.8-10.8 K/uL Red Blood Count 3.76 4.2-5.4 M/uL Hemoglobin 12.6 12.0-16.0 g/dL Hematocrit 36.9 37-47 % Mean Corpuscular Volume 98.1 80-100 fL Mean Corpuscular Hemoglobin 33.5 25-34 pg Mean Corpuscular Hemoglobin Concent 34.1 32-36 g/dl Platelet Count 224 130-400 K/uL Mean Platelet Volume 10.9 7.4-10.4 fL Neutrophils (%) (Auto) 66.0 % Lymphocytes (%) (Auto) 25.0 % Monocytes (%) (Auto) 7.9 % Eosinophils (%) (Auto) 0.5 % Basophils (%) (Auto) 0.4 % Neutrophils # (Auto) 5.62 1.4-6.5 K/uL Lymphocytes # (Auto) 2.13 1.2-3.4 K/uL Monocytes # (Auto) 0.67 0.11-0.59 K/uL Eosinophils # (Auto) 0.04 0-0.5 K/uL Basophils # (Auto) 0.03 0-0.2 K/uL RDW Standard Deviation 52.1 36.4-46.3 fL RDW Coefficient of Variation 14.7 11.5-14.5 % Immature Granulocyte % (Auto) 0.2 % Immature Granulocyte # (Auto) 0.02 0.00-0.02 K/uL Prothrombin Time 21.5 9.0-12.0 SECONDS Prothromb Time International Ratio 2.0 0.9-1.1 Activated Partial Thromboplast Time 39.5 21.0-31.0 SECONDS Partial Thromboplastin Ratio 1.5 Sodium Level 131 136-145 mmol/L Potassium Level 2.6 3.5-5.1 mmol/L Chloride Level 87 98-107 mmol/L Carbon Dioxide Level 36 21-32 mmol/L Anion Gap 8.0 3-11 mmol/L Blood Urea Nitrogen 8 7-18 mg/dl Creatinine 0.98 0.60-1.20 mg/dl Est Creatinine Clear Calc Drug Dose 53.5 ml/min Estimated GFR () 71.2 Estimated GFR (Non- 61.4 BUN/Creatinine Ratio 7.8 10-20 Random Glucose 87 70-99 mg/dl Calcium Level 9.0 8.5-10.1 mg/dl Magnesium Level 1.6 1.8-2.4 mg/dl Total Bilirubin 0.4 0.2-1 mg/dl Aspartate Amino Transf (AST/SGOT) 15 15-37 U/L Alanine Aminotransferase (ALT/SGPT) 10 12-78 U/L Alkaline Phosphatase 134 45-117 U/L Troponin I 1.980 0-0.045 ng/ml Pro-B-Type Natriuretic Peptide 5562 0-900 pg/ml Total Protein 7.0 6.4-8.2 gm/dl Albumin 2.9 3.4-5.0 gm/dl Globulin 4.1 2.5-4.0 gm/dl Albumin/Globulin Ratio 0.7 0.9-2 Lactic Acid Level 1.0 0.4-2.0 mmol/L Microbiology Results 09/24/17 Blood Culture, Received Pending 09/24/17 Blood Culture, Received Pending Diagnostic Radiology CXR - FINDINGS: Cardiac silhouette is again mildly enlarged. Opacity measuring up to 5.4 cm along the left lung base correlates with Bochdalek hernia. Prior median sternotomy. Right pectoral pacer/AICD is noted with leads intact. There is no pneumothorax or pleural effusion. Linear subsegmental left basilar opacities are noted compatible with atelectasis or scarring. No lobar airspace consolidation. Prior ORIF of the right humerus. IMPRESSION: 1. Cardiomegaly without acute cardiopulmonary process. 2. Moderate sized left Bochdalek hernia redemonstrated. EKG EKG - 70 bpm, ventricular-paced with occasional PVCs Impression Assessment and Plan Ms. Austin is a 62 year old lady with a past medical history of COPD, CHF, CAD, AICD implantation, paroxsymal atrial fibrillation, HOCM, chronically elevated troponin, chronic back pain, GERD, depression, and prior stroke with residual tremor who presented with a 1 month history of cough and SOB that worsened over the last ten days. COPD Exacerbation w/hypoxemia - IV solumedrol 60mg q6h - continue O2 via nasal cannula - dunonebs prn - z-pack to treat for atypicals - smoking cessation counselling - admitted to tele given hypoxemia Elevated Troponin - chronic - trop 1.9 today, will repeat tomorrow AM Afib - continue home dose of warfarin - ventricular pacing CAD - continue metoprolol, aspirin. atorvastatin CHF - hx of HOCM and hypertrophy subaortic sclerosis - continue Lasix Hypokalemia and Hypomagnesemia - in ED, K was 2.6 and Mg 1.6 - likely a combination of furosemide & poor intake - will recheck tomorrow AM Prior stroke - remains with tremor - continue depakote and primidone Chronic back pain - continue home pain regimen - gabapentin and roxicodone GERD - continue pantoprazole Depression - continue duloxetine and buspirone Code: Full VTE Prophylaxis: on warfarin Disposition: admitted to telemetry Resident Physician Supervision Note: I interviewed and examined the patient. Discussed with Dr. Harvey and agree with findings and plan as documented in the note. Any exceptions or clarifications are listed here: None Documented By: Nilay Pearson sob some, although not nearly as much as expected w severity of hypoxia. treated for respiratory infections several times recently but still worsening. still smokes. uses O2 3L HS none during the day chronic severe back pain vitals noted fatigued lungs quiet w exp wheeze/rhonchi exac of presumably severe COPD -atypical coverage, steroids, nebs, supportive care. review most recent PFTs. d/w pt and re smoke cessation and high likelihood that she'll need chronic O2 chronic back pain - suspect will benefit from multifactorial approach. will d/ w her and further otherwise as above VTE Prophylaxis VTE Risk Assessment Done? Y/N: Yes Risk Level: Moderate Resident Tracking Resident Involvement: Resident Care Provided Care Provided: Adult Hospital Medicine
[2017-09-24 19:54] VITALS: Ht 157.5 cm; Wt 73.3 kg
[2017-09-24] MEDS ORDERED: AZITHROMYCIN 250 MG TAB PO ONE (20:00)
[2017-09-24 20:18] VITALS: BP 104/63; PULSE 61; TEMP 36.4; O2SAT 94
--- NOTE | 2017-09-24 20:19 | EMERGENCY ROOM VISIT NOTE ---
ED Visit Note First contact with patient: 13:43 I have personally seen and evaluated the patient with the PA. I agree with the diagnosis and management decisions and have been personally involved in the case. Please see CHRISTIANO Fragoso's notes for further details of the history, physical and visit.
[2017-09-24] MEDS ORDERED: PNEUMOCOCCAL POLYSACCHARIDES 25 MCG/0.5 ML VIAL/SYR IM. ONE (20:30)
[2017-09-24] MEDS ORDERED: PNEUMOCOCCAL ADMINISTRATION CHARGE ONE (20:30)
[2017-09-24] MEDS ORDERED: INFLUENZA ADMINISTRATION CHARGE ONE (20:30)
[2017-09-24] MEDS ORDERED: INFLUENZA VIRUS QUAD VACCINE 0.5 ML SYR IM. ONE (20:30)
[2017-09-24 20:50] VITALS: BP 103/64; PULSE 66; O2SAT 93
[2017-09-24] MEDS: ALBUT/IPRATROP 3MG/0.5MG NEB 3 ML VIAL INH SCH (21:11)
[2017-09-24 21:13] VITALS: PULSE 65; O2SAT 95
[2017-09-24] MEDS: METHYLPREDNISOLONE IV 60 MG in SYRINGE 0 ML IV SCH (21:28)
[2017-09-24] MEDS: WARFARIN SOD 5 MG TAB PO SCH ×2 (21:38→22:52)
[2017-09-24] MEDS: BusPIRone 15 MG TAB PO SCH ×2 (21:38→23:05)
[2017-09-24] MEDS: PRIMIDONE 50 MG TAB PO SCH ×2 (21:39→23:06)
[2017-09-24] MEDS: METOPROLOL TARTRATE 50 MG TAB PO SCH ×2 (21:39→23:17)
[2017-09-24] MEDS: GABAPENTIN 300 MG CAP PO SCH ×2 (21:39→23:12)
[2017-09-24] MEDS: DIVALPROEX 500 MG EXTENDED RELEASE TAB PO SCH ×2 (21:39→23:12)
[2017-09-24 21:45] LABS: BUN/CREATININE RATIO 7.1 (10-20); CALCIUM 8.5 mg/dl (8.5-10.1); CREATININE 0.88 mg/dl (0.60-1.20)
[2017-09-24] MEDS: POTASSIUM CHLORIDE INJ 40 MEQ in SODIUM CHLORIDE 0.9% 1000ML 1,000 ML IV SCH (22:56)
[2017-09-25] VITALS (13 sets, daily range): BP systolic 105–130; BP diastolic 66–88; PULSE 61–100; TEMP 36.4–36.7; O2SAT 90–96
[2017-09-25] MEDS: METHYLPREDNISOLONE IV 60 MG in SYRINGE 0 ML IV SCH ×4 (02:33→19:39)
[2017-09-25] MEDS: FUROSEMIDE 40 MG TAB PO SCH ×2 (05:28→11:59)
[2017-09-25 05:57] LABS: INR 1.8 (0.9-1.1); PROTHROMBIN TIME (PATIENT) 20.1 SECONDS (9.0-12.0)
[2017-09-25 06:34] LABS: BUN/CREATININE RATIO 9.3 (10-20); CALCIUM 8.8 mg/dl (8.5-10.1); CREATININE 0.62 mg/dl (0.60-1.20); POTASSIUM 3.6 mmol/L (3.5-5.1)
[2017-09-25 06:55] LABS: URINE APPEARANCE CLEAR (CLEAR); URINE BILIRUBIN NEG (NEG); URINE COLOR YELLOW; URINE NITRITE NEG (NEG); URINE SPECIFIC GRAVITY 1.013 (1.000-1.030); UROBILINOGEN NEG (NEG)
[2017-09-25 07:04] LABS: MANUAL MICROSCOPIC REQUIRED? NO; REVIEW REQ? NO
--- NOTE | 2017-09-25 07:07 | DIAGNOSTIC IMAGING REPORT ---
CT SCAN OF THE BRAIN WITHOUT IV CONTRAST CLINICAL HISTORY: Lethargy. Change in mental status. COMPARISON STUDY: CT of the brain dated 03/22/2016. TECHNIQUE: Unenhanced axial CT scan of the brain is performed from the vertex to the skull base. CT DOSE: 712.55 mGy.cm FINDINGS: Brain parenchyma: There are age-related involutional changes noting mild subcortical and periventricular microangiopathic change. There is no hemorrhage, mass effect, or evidence of acute territorial ischemia by CT criteria. Berg-white matter is preserved. No extra-axial fluid collection is seen. A 1.5 cm densely calcified structure along the right frontal convexity is nonspecific and may represent a small meningioma. This is unchanged from prior examinations. Ventricles, sulci, cisterns: Prominent secondary to involutional change. Intracranial vasculature: There is atherosclerotic calcification of the cavernous carotid arteries. Calvarium: Unremarkable. Sinuses and mastoids: The visualized paranasal sinuses are clear. The mastoid air cells are well pneumatized. Orbits: The bony orbits are grossly intact. IMPRESSION: There is no hemorrhage, mass effect, or evidence of acute territorial ischemia by CT criteria. Electronically signed by: Alberto Terry M.D. 09/25/2017 7:06 AM Dictated Date/Time: 09/25/2017 7:03 AM
[2017-09-25] MEDS: ALBUT/IPRATROP 3MG/0.5MG NEB 3 ML VIAL INH SCH ×4 (07:19→19:21)
--- NOTE | 2017-09-25 07:23 | Family Medicine Progress Note ---
Progress Note Date of Service Sep 25, 2017. Subjective Pt evaluation today including: conversation w/ patient, conversation w/ family , physical exam, chart review, lab review, review of inpatient medication list Pain: No pain reported PO Intake: Tolerating PO intake Voiding: no voiding problems Ms. Austin reports she feels better today. She states her breathing is improved , but her cough has now become productive of clear sputum, without the presence of blood. She denies chest pain, fever, chills, wheezing, shortness of breath at rest, n/v, or abdominal pain. She is eager to be discharged. Her sister notes her full body tremors have not improved with medication and is requesting a change in medication to aid with these symptoms. Ms. Austin also notes that they are troublesome to her and not improving. Constitutional: No fever, No chills Respiratory: + cough, + sputum, No wheezing, No shortness of breath Cardiovascular: No chest pain Abdomen: No pain, No nausea, No vomiting, No diarrhea All Other Systems: Reviewed and Negative Medications Current Inpatient Medications Medications (Trade) Dose Ordered Sig/Johnie Route Start Time Stop Time Status Last Admin Dose Admin Acetaminophen (Tylenol Tab) 650 mg Q4H PRN PO 09/24/17 17:00 10/24/17 16:59 Al Hydrox/Mg Hydrox/Simethicone (Maalox Max Susp) 15 ml Q4H PRN PO 09/24/17 17:00 10/24/17 16:59 Magnesium Hydroxide (Milk Of Magnesia Susp) 30 ml Q12H PRN PO 09/24/17 17:00 10/24/17 16:59 Ondansetron HCl (Zofran Inj) 4 mg Q6H PRN IV 09/24/17 17:00 10/24/17 16:59 Polyethylene (Miralax Powder Packet) 17 gm DAILY PRN PO 09/24/17 17:00 10/24/17 16:59 Methylprednisolone Sodium Succinate 60 mg/Syringe 0.96 ml @ 1.5 mls/min Q6H IV 09/24/17 20:00 10/24/17 19:59 09/25/17 07:56 1.5 MLS/MIN Albuterol/ Ipratropium (Duoneb) 3 ml QIDR INH 09/24/17 20:00 10/24/17 19:59 09/25/17 07:19 3 ML Aspirin (Ecotrin Tab) 81 mg QAM PO 09/25/17 09:00 10/25/17 08:59 09/25/17 07:57 81 MG Atorvastatin Calcium (Lipitor Tab) 10 mg QAM PO 09/25/17 09:00 10/25/17 08:59 09/25/17 07:58 10 MG Buspirone HCl (BusPAR TAB) 15 mg BID PO 09/24/17 21:00 10/24/17 20:59 09/25/17 07:59 15 MG Acetaminophen/ Butalbital/ Caffeine (Fioricet Tab) 1 tab UD PRN PO 09/24/17 17:00 10/24/17 16:59 Carisoprodol (Soma Tab) 350 mg TID PRN PO 09/24/17 17:00 10/24/17 16:59 Divalproex Sodium (Depakote Extended Rel Tab) 500 mg HS PO 09/24/17 21:00 10/24/17 20:59 09/24/17 23:12 500 MG Duloxetine HCl (Cymbalta Cap) 60 mg DAILY PO 09/25/17 09:00 10/25/17 08:59 09/25/17 07:57 60 MG Furosemide (Lasix Tab) 40 mg BID@0700,1200 PO 09/25/17 07:00 10/25/17 06:59 09/25/17 05:28 40 MG Gabapentin (Neurontin Cap) 900 mg TID PO 09/24/17 21:00 10/24/17 20:59 09/25/17 07:57 900 MG Acetaminophen/ Hydrocodone Bitart ([place] 10/325 Tab) 2 tab TID PRN PO 09/24/17 17:00 10/08/17 16:59 09/25/17 10:49 2 TAB Metoprolol Tartrate (Lopressor Tab) 50 mg BID PO 09/24/17 21:00 10/24/17 20:59 09/25/17 07:58 50 MG Pantoprazole Sodium (Protonix Tab) 40 mg QAM PO 09/25/17 09:00 10/25/17 08:59 09/25/17 07:59 40 MG Potassium Chloride (Klor-Con Tab) 20 meq DAILY PO 09/25/17 09:00 10/25/17 08:59 09/25/17 07:56 20 MEQ Primidone (Mysoline Tab) 50 mg QAM PO 09/25/17 09:00 10/25/17 08:59 09/25/17 07:58 50 MG Primidone (Mysoline Tab) 100 mg QPM PO 09/24/17 21:00 10/24/17 20:59 09/24/17 23:06 100 MG Prochlorperazine Maleate (Compazine Tab) 10 mg Q6H PRN PO 09/24/17 17:00 10/24/17 16:59 09/25/17 07:58 10 MG Warfarin Sodium (Coumadin Tab) 5 mg DAILY@1600 PO 09/24/17 20:00 10/24/17 19:59 09/24/17 22:52 5 MG Cholecalciferol (Vitamin D Tab) 2,000 inter.unit QAM PO 09/25/17 09:00 10/25/17 08:59 09/25/17 07:59 2,000 INTER.UNIT Oxycodone HCl (Roxicodone Immediate Rel Tab) 2.5 mg Q8 PRN PO 09/24/17 18:30 10/08/17 18:29 Azithromycin (Zithromax Tab) 250 mg QAM PO 09/25/17 09:00 09/28/17 09:01 09/25/17 07:57 250 MG Potassium Chloride 40 meq/ Sodium Chloride 1,020 ml @ 75 mls/hr [id number] IV 09/24/17 22:30 10/24/17 22:29 09/24/17 22:56 75 MLS/HR Objective Vital Signs Date Time Temp Pulse Resp B/P (MAP) Pulse Ox O2 Delivery O2 Flow Rate FiO2 09/25/17 08:00 Nasal Cannula 3.0 09/25/17 07:27 36.4 76 20 116/73 (87) 90 Nasal Cannula 2.0 09/25/17 07:19 70 20 91 Nasal Cannula 2.0 09/25/17 04:00 95 Nasal Cannula 3.0 09/25/17 03:58 36.5 61 18 105/70 (82) 93 3.0 09/25/17 00:21 36.4 81 20 110/66 (81) 92 3.0 09/25/17 00:00 95 Nasal Cannula 3.0 09/24/17 21:13 65 20 95 Nasal Cannula 3.0 09/24/17 20:50 66 20 103/64 (77) 93 Nasal Cannula 3.0 09/24/17 20:18 36.4 61 18 104/63 (77) 94 Nasal Cannula 3.0 09/24/17 20:00 Nasal Cannula 3.0 09/24/17 19:54 Nasal Cannula 3.0 09/24/17 17:48 72 18 137/72 97 Nasal Cannula 3.0 Nebulizer 09/24/17 16:10 68 22 142/76 94 Nasal Cannula 3.0 Nebulizer 09/24/17 15:09 72 22 134/76 99 Nasal Cannula 09/24/17 15:06 76 22 99 Nasal Cannula 2.0 09/24/17 13:54 65 09/24/17 13:51 94 Room Air 09/24/17 13:37 36.7 106 22 95/67 98 Physical Exam General Appearance: WD/WN, no apparent distress, + pertinent finding (tremors) Respiratory/Chest: chest non-tender, no respiratory distress, no accessory muscle use, + decreased breath sounds, + wheezing (improved from yesterday) Cardiovascular: regular rate, rhythm, no edema, no gallop, no JVD, no murmur Abdomen: normal bowel sounds, non tender, soft, no organomegaly, no pulsatile mass Laboratory Results Last 24 Hours Test 09/24/17 14:17 09/24/17 14:34 09/24/17 19:51 09/24/17 21:19 White Blood Count 8.51 K/uL Red Blood Count 3.76 M/uL Hemoglobin 12.6 g/dL Hematocrit 36.9 % Mean Corpuscular Volume 98.1 fL Mean Corpuscular Hemoglobin 33.5 pg Mean Corpuscular Hemoglobin Concent 34.1 g/dl Platelet Count 224 K/uL Mean Platelet Volume 10.9 fL Neutrophils (%) (Auto) 66.0 % Lymphocytes (%) (Auto) 25.0 % Monocytes (%) (Auto) 7.9 % Eosinophils (%) (Auto) 0.5 % Basophils (%) (Auto) 0.4 % Neutrophils # (Auto) 5.62 K/uL Lymphocytes # (Auto) 2.13 K/uL Monocytes # (Auto) 0.67 K/uL Eosinophils # (Auto) 0.04 K/uL Basophils # (Auto) 0.03 K/uL RDW Standard Deviation 52.1 fL RDW Coefficient of Variation 14.7 % Immature Granulocyte % (Auto) 0.2 % Immature Granulocyte # (Auto) 0.02 K/uL Prothrombin Time 21.5 SECONDS Prothromb Time International Ratio 2.0 Activated Partial Thromboplast Time 39.5 SECONDS Partial Thromboplastin Ratio 1.5 Sodium Level 131 mmol/L 129 mmol/L Potassium Level 2.6 mmol/L 3.0 mmol/L Chloride Level 87 mmol/L 89 mmol/L Carbon Dioxide Level 36 mmol/L 32 mmol/L Anion Gap 8.0 mmol/L 8.0 mmol/L Blood Urea Nitrogen 8 mg/dl 6 mg/dl Creatinine 0.98 mg/dl 0.88 mg/dl Est Creatinine Clear Calc Drug Dose 53.5 ml/min 59.6 ml/min Estimated GFR () 71.2 81.0 Estimated GFR (Non- 61.4 69.9 BUN/Creatinine Ratio 7.8 7.1 Random Glucose 87 mg/dl 137 mg/dl Calcium Level 9.0 mg/dl 8.5 mg/dl Magnesium Level 1.6 mg/dl Total Bilirubin 0.4 mg/dl 0.3 mg/dl Aspartate Amino Transf (AST/SGOT) 15 U/L 11 U/L Alanine Aminotransferase (ALT/SGPT) 10 U/L 10 U/L Alkaline Phosphatase 134 U/L 123 U/L Troponin I 1.980 ng/ml 1.900 ng/ml Pro-B-Type Natriuretic Peptide 5562 pg/ml Total Protein 7.0 gm/dl 6.4 gm/dl Albumin 2.9 gm/dl 2.5 gm/dl Globulin 4.1 gm/dl Albumin/Globulin Ratio 0.7 Lactic Acid Level 1.0 mmol/L Direct Bilirubin 0.2 mg/dl Ammonia 45.9 umol/L Test 09/25/17 05:12 09/25/17 06:20 09/25/17 09:38 Prothrombin Time 20.1 SECONDS Prothromb Time International Ratio 1.8 Sodium Level 131 mmol/L Potassium Level 3.6 mmol/L Chloride Level 91 mmol/L Carbon Dioxide Level 35 mmol/L Anion Gap 5.0 mmol/L Blood Urea Nitrogen 6 mg/dl Creatinine 0.62 mg/dl Est Creatinine Clear Calc Drug Dose 84.6 ml/min Estimated GFR () 111.2 Estimated GFR (Non- 96.0 BUN/Creatinine Ratio 9.3 Random Glucose 130 mg/dl Calcium Level 8.8 mg/dl Magnesium Level 2.0 mg/dl Urine Color YELLOW Urine Appearance CLEAR Urine pH 6.0 Urine Specific [place] 1.013 Urine Protein NEG Urine Glucose (UA) NEG Urine Ketones NEG Urine Occult Blood NEG Urine Nitrite NEG Urine Bilirubin NEG Urine Urobilinogen NEG Urine Leukocyte Esterase NEG Arterial Blood pH 7.45 Arterial Blood Partial Pressure CO2 46 mmHg Arterial Blood Partial Pressure O2 74 mm/Hg Arterial Blood HCO3 31 mmol/L Arterial Blood Oxygen Saturation 94.6 % Arterial Blood Base Excess 6.5 mEq/L Arterial Blood Gas Delivery 3L Abdoul Test POS Assessment and Plan Ms. Austin is a 62 year old lady with a past medical history of COPD, CHF, CAD, AICD implantation, paroxsymal atrial fibrillation, HOCM, chronically elevated troponin, chronic back pain, GERD, depression, and prior stroke with residual tremor who presented with a 1 month history of cough and SOB that worsened over the last ten days. COPD Exacerbation w/hypoxemia - continue IV solumedrol 60mg q6h - continue O2 via nasal cannula - dunonebs prn - z-pack to treat for atypicals - day 2 - smoking cessation counselling Elevated Troponin - chronic - decreased slightly from 1.98 to 1.9 Afib - continue home dose of warfarin - ventricular pacing CAD - continue metoprolol, aspirin. atorvastatin CHF - hx of HOCM and hypertrophy subaortic sclerosis - continue Lasix Hyponatremia - in ED, Na was 129, improved to 131 with IV fluids - continue KCl/NaCl at 75 mls/hr Hypokalemia and Hypomagnesemia - in ED, K was 2.6 and Mg 1.6 - likely a combination of furosemide & poor intake - recheck showed K of 3.6 and Mg of 2, improving Prior stroke - remains with tremor - continue depakote and primidone - increased gabapentin from 900mg TID to 1,200mg TID to help with both tremors and back pain Chronic back pain - continue home pain regimen - gabapentin and roxicodone GERD - continue pantoprazole Depression - continue duloxetine and buspirone Code: Full VTE Prophylaxis: on warfarin Disposition: remains on telemetry, likely d/c tomorrow Resident Physician Supervision Note: I interviewed and examined the patient. Discussed with Dr. Harvey and agree with findings and plan as documented in the note. Any exceptions or clarifications are listed here: None Documented By: Nilay Pearson feeling better breathing better thinks she'll be good to go home tomorrow paul noted nad breathing unlabored VERY quiet inspiration w diffuse but improved wheeze and rhonchi expiration COPD exacerbation - PFTs from not-quite 2 years ago reviewed - SEVERE COPD then , and she's been ongoing smoker since. (FEV1 was ~1L then) - exceedingly likely to need O2 at all times - 2 step. continue steroids, nebs, atypical coverage chronic back pain - anticipate benefit from multimodal approach elevated troponin - chronically in current range likely relates to undelrying cardiomyopathy no acuity noted altered mental status - seems very narcotic sensitive - w severity of back pain some may be needed but use at low dosing and with caution. ABG to eval significance of ?hypercapnea contributing improving - hopefully home tomorrow Resident Tracking Resident Involvement: Resident Care Provided Care Provided: Adult Hospital Medicine
[2017-09-25] MEDS: POTASSIUM CHLORIDE 20 MEQ TABCR PO SCH (07:56)
[2017-09-25] MEDS: DULOXETINE HCL 60 MG CAP PO SCH (07:57)
[2017-09-25] MEDS: ASPIRIN 81 MG ECTAB PO SCH (07:57)
[2017-09-25] MEDS: GABAPENTIN 300 MG CAP PO SCH ×2 (07:57→13:29)
[2017-09-25] MEDS: AZITHROMYCIN 250 MG TAB PO SCH (07:57)
[2017-09-25] MEDS: ATORVASTATIN 10 MG TAB PO SCH (07:58)
[2017-09-25] MEDS: PRIMIDONE 50 MG TAB PO SCH ×2 (07:58→21:14)
[2017-09-25] MEDS: METOPROLOL TARTRATE 50 MG TAB PO SCH ×2 (07:58→21:16)
[2017-09-25] MEDS: PANTOprazole SOD 40 MG TAB PO SCH (07:59)
[2017-09-25] MEDS: BusPIRone 15 MG TAB PO SCH ×2 (07:59→21:15)
[2017-09-25] MEDS: CHOLECALCIFEROL 1000 INTER.UNIT TAB PO SCH (07:59)
[2017-09-25 09:49] LABS: ARTERIAL BLD GAS O2 SATURATION 94.6 % (90-95); ARTERIAL BLOOD GAS BASE EXCESS 6.5 mEq/L (-9-1.8); ARTERIAL BLOOD GAS HCO3 31 mmol/L (19-24); ARTERIAL BLOOD GAS PO2 74 mm/Hg (80-95); ARTERIAL BLOOD GAS pH 7.45 (7.35-7.45)
[2017-09-25 09:50] LABS: ALLEN TEST POS (POS); O2 ADMINISTRATION 3L
[2017-09-25] MEDS: HYDROCODONE/ACETAMI 10/325 TAB PO PRN ×2 (10:49→17:53)
[2017-09-25] MEDS: POTASSIUM CHLORIDE INJ 40 MEQ in SODIUM CHLORIDE 0.9% 1000ML 1,000 ML IV SCH (11:59)
[2017-09-25] MEDS ORDERED: NICOTINE 21 MG/24 HR TDSY TD ONE (12:30)
--- NOTE | 2017-09-25 13:09 | Clinical Documentation Query ---
CLINICAL DOCUMENTATION QUERY In your clinical opinion is this patient being managed for: ( ) Chronic systolic (congestive) heart failure ( ) Not Agree ( ) Other explanation of clinical findings (Please Explain) ( ) Unable to determine (Please Define) ( ) Need to Discuss The medical record reflects the following clinical findings, treatment, and risk factors. Clinical Indicators: Echo on 03/28/17 revealed EF = 45-50%, severe hypertrophy of anteroseptum, hypertrophic cardiomyopathy, left ventricular systolic function low normal, grade I diastolic dysfunction, BNP = 5562 on admission Treatment: Lasix PO, CXR, O2 Risk Factors: Cardiac pacemaker, HTN, MD, COPD Please clarify and document your clinical opinion in the progress notes and discharge summary. Terms such as "probable", "suspected", "likely", "questionable", "possible", or "still to be ruled out" are acceptable. IF IN AGREEMENT, YOU MUST DOCUMENT ABOVE DIAGNOSTIC STATEMENT IN DAILY PROGRESS NOTES AND DISCHARGE SUMMARY. This document is not part of the patient's record. Thank You, Rolanda Rooney RN [phone]
[2017-09-25] MEDS: CARISOPRODOL 350 MG TAB PO PRN ×2 (13:54→23:28)
[2017-09-25] MEDS: WARFARIN SOD 5 MG TAB PO SCH (16:23)
[2017-09-25] MEDS: GABAPENTIN 600 MG TAB PO SCH (21:13)
[2017-09-25] MEDS: DIVALPROEX 500 MG EXTENDED RELEASE TAB PO SCH (21:15)
[2017-09-26] VITALS (8 sets, daily range): BP systolic 115–131; BP diastolic 77–87; PULSE 61–102; TEMP 36.5–36.8; O2SAT 90–99
[2017-09-26] MEDS: METHYLPREDNISOLONE IV 60 MG in SYRINGE 0 ML IV SCH ×3 (01:40→13:21)
[2017-09-26] MEDS: POTASSIUM CHLORIDE INJ 40 MEQ in SODIUM CHLORIDE 0.9% 1000ML 1,000 ML IV SCH ×2 (01:41→15:18)
[2017-09-26] MEDS: HYDROCODONE/ACETAMI 10/325 TAB PO PRN (01:42)
[2017-09-26] MEDS: ALBUT/IPRATROP 3MG/0.5MG NEB 3 ML VIAL INH SCH ×4 (05:14→14:47)
[2017-09-26 05:45] LABS: MEAN CORPUSCULAR HEMOGLOBIN 33.3 pg (25-34); MEAN CORPUSCULAR HGB CONC 33.3 g/dl (32-36); MEAN PLATELET VOLUME 10.8 fL (7.4-10.4); PLATELET COUNT 250 K/uL (130-400)
[2017-09-26] MEDS: FUROSEMIDE 40 MG TAB PO SCH ×2 (06:00→11:28)
[2017-09-26 06:14] LABS: BUN/CREATININE RATIO 18.7 (10-20); CALCIUM 8.6 mg/dl (8.5-10.1); CREATININE 0.83 mg/dl (0.60-1.20); POTASSIUM 4.6 mmol/L (3.5-5.1)
[2017-09-26] MEDS ORDERED: SODIUM CHLORIDE 0.9% 500ML 500 ML IV ONE (07:45)
[2017-09-26] MEDS: DULOXETINE HCL 60 MG CAP PO SCH (07:50)
[2017-09-26] MEDS: BusPIRone 15 MG TAB PO SCH (07:50)
[2017-09-26] MEDS: PRIMIDONE 50 MG TAB PO SCH (07:51)
[2017-09-26] MEDS: ASPIRIN 81 MG ECTAB PO SCH (07:51)
[2017-09-26] MEDS: ATORVASTATIN 10 MG TAB PO SCH (07:51)
[2017-09-26] MEDS: METOPROLOL TARTRATE 50 MG TAB PO SCH (07:51)
[2017-09-26] MEDS: POTASSIUM CHLORIDE 20 MEQ TABCR PO SCH (07:51)
[2017-09-26] MEDS: AZITHROMYCIN 250 MG TAB PO SCH (07:52)
[2017-09-26] MEDS: PANTOprazole SOD 40 MG TAB PO SCH (07:52)
[2017-09-26] MEDS: GABAPENTIN 600 MG TAB PO SCH ×2 (07:52→13:21)
[2017-09-26] MEDS: CHOLECALCIFEROL 1000 INTER.UNIT TAB PO SCH (07:52)
[2017-09-26 08:41] LABS: INR 2.6 (0.9-1.1); PROTHROMBIN TIME (PATIENT) 29.1 SECONDS (9.0-12.0)
[2017-09-26] MEDS ORDERED: NICOTINE 21 MG/24 HR TDSY TD SCH (09:00)
--- NOTE | 2017-09-26 12:45 | Discharge Instructions ---
Discharge Instructions Date of Service Sep 26, 2017. Admission Reason for Admission: Copd Exacerbation Discharge Discharge Diagnosis / Problem: COPD Exacerbation Discharge Goals Goal(s): Decrease discomfort, Improve function, Improve disease control Activity Recommendations Activity Limitations: resume your previous activity . Instructions / Follow-Up Instructions / Follow-Up You were admitted to the hospital because your oxygen saturations were very low and you were having trouble breathing. This was due to an infection in your lungs that worsened your underlying COPD. We treated you with oxygen, steroids to decrease the inflammation in your lungs and antibiotics to help with the infection. We will be discharging you home on a couple more days of the antibiotics, a tapering dose of oral steroids, and also oxygen for you to use all day instead of just at night. While you were here, we also increased your dose of gabapentin to help with your tremors and back pain. Please continue to take the increased dosage. If you experience any worsening shortness of breath, chest pain, or notice your oxygen saturations are below 90%, please seek medical attention. back pain -as we discussed, your kind of back pain is usually multifactorial - and while the bone and disc disease is the central reason "why" your back hurts, usually it's multiple things that actually are causing your pain -usually what we see is that the pain is part from the bones and discs, but also part from the muscle and ligament tightness, part from peripheral nerves carrying pain as "the new normal" and part as your brain interpreting pain as "the new normal" --- what i found in practice taking care of backs more or less exactly like yours, as well as what you can find in medical literature, is that going after your back pain on every angle possible usually does far better for you than simply going after the bones/discs alone bone/disc - typically in a back like yours, i view this part as a "constant" -- meaning that it's something that we can't really intervene on -- your primary care doc can keep an eye on symptoms and if you were to develop a single nerve compression type symptom (pain radiating down one nerve root) then it can be worth seeing a pain management doc for injections; however, most of the time when we see backs like yours we work on the understanding that the bone and disc part wont' really be a big part of what we're able to work on muscle/ligament - often what i found is that the overlying muscle and ligament pain is a big portion of what's making you hurt. although it is usually caused by the underlying bone/disc anatomy, treating this as its own entity gets people a lot of symptom relief. typically the most effective treatment strategy for the muscle and ligament pain is hands-on manipulative medicine. basically working on the muscles and ligaments to get things to settle down and relax more. because the muscles are used to being in spasm, it usually takes a while to start to get symptoms better -- even frequently things will hurt a little worse the first few weeks of working on things just because they're so used to being in spasm that getting them looser makes things start to move more. we'd recommend seeing Angel Braun DO ([facility]) - as a DO he does hands on manipulative medicine and will have taken care of backs like yours before (much like i used to do when i was in the office ). be patient, it often takes several months to start to really see the impact , but in my experience this was the biggest area we can make an impact on the pain peripheral nerves - when pain is chronic, the nerves that carry pain can start to make pain signals "the new normal" - meaning that even if it was a day that your back "shouldn't" be hurting as much, the nerves still carry a pain signal that is the same as on a bad day. medications like your gabapentin help quiet this pain -- part of why we increased to maximum dosing. your docs can also add additional nerve stabilizing meds to quiet the nerves more central nervous system - much as with the peripheral nerves, the areas in your brain that sense pain can also sense pain as a "new normal" -- medications like your cymbalta can help quiet this, although typically at higher dosing. we didn't want to make big changes in medications all at once, but over time it would likely be helpful to slowly bump the cymbalta up to 120mg a day Current Hospital Diet Patient's current hospital diet: AHA Diet (Heart Healthy) Discharge Diet Recommended Diet: AHA Diet (Heart Healthy) Pending Studies Studies pending at discharge: no Medical Emergencies . Who to Call and When: Medical Emergencies: If at any time you feel your situation is an emergency, please call 911 immediately. . Non-Emergent Contact Non-Emergency issues call your: Primary Care Provider . . "Provider Documentation" section prepared by Naun Harvey. . VTE Core Measure Inpt VTE Proph given/why not?: Warfarin (Coumadin)
[2017-09-26] MEDS ORDERED: PRED10TA PO (13:21)
[2017-09-26] MEDS ORDERED: NRN600 PO (13:21)
[2017-09-26] MEDS ORDERED: AZIT-57 PO (13:21)
[2017-09-26] MEDS: WARFARIN SOD 5 MG TAB PO SCH (16:31)
--- NOTE | 2017-09-26 18:05 | Discharge Summary ---
Discharge Summary Date of Service Sep 26, 2017. Discharge Summary Admission Date: Sep 24, 2017 at 16:43 Discharge Date: Sep 26, 2017 Discharge Disposition: Home with services Principal Diagnosis: exacerbation of COPD Immunizations: Have You Had Influenza Vaccine: Yes Influenza Vaccine Date: Jul 05, 2011 History of Tetanus Vaccine?: No History of Pneumococcal: Yes Pneumococcal Date: Jul 05, 2011 History of Hepatitis B Vaccine: No Procedures: [~ rep ct add3]] CHEST ONE VIEW PORTABLE HISTORY: 62 years-old Female EVALUATE RESPIRATORY DISTRESS.DYSPNEA acute respiratory distress with cough COMPARISON: Chest radiograph 09/18/2017 TECHNIQUE: Portable upright AP view of the chest FINDINGS: Cardiac silhouette is again mildly enlarged. Opacity measuring up to 5.4 cm along the left lung base correlates with Bochdalek hernia. Prior median sternotomy. Right pectoral pacer/AICD is noted with leads intact. There is no pneumothorax or pleural effusion. Linear subsegmental left basilar opacities are noted compatible with atelectasis or scarring. No lobar airspace consolidation. Prior ORIF of the right humerus. IMPRESSION: 1. Cardiomegaly without acute cardiopulmonary process. 2. Moderate sized left Bochdalek hernia redemonstrated. CT SCAN OF THE BRAIN WITHOUT IV CONTRAST CLINICAL HISTORY: Lethargy. Change in mental status. COMPARISON STUDY: CT of the brain dated 03/22/2016. TECHNIQUE: Unenhanced axial CT scan of the brain is performed from the vertex to the skull base. CT DOSE: 712.55 mGy.cm FINDINGS: Brain parenchyma: There are age-related involutional changes noting mild subcortical and periventricular microangiopathic change. There is no hemorrhage, mass effect, or evidence of acute territorial ischemia by CT criteria. Berg-white matter is preserved. No extra-axial fluid collection is seen. A 1.5 cm densely calcified structure along the right frontal convexity is nonspecific and may represent a small meningioma. This is unchanged from prior examinations. Ventricles, sulci, cisterns: Prominent secondary to involutional change. Intracranial vasculature: There is atherosclerotic calcification of the cavernous carotid arteries. Calvarium: Unremarkable. Sinuses and mastoids: The visualized paranasal sinuses are clear. The mastoid air cells are well pneumatized. Orbits: The bony orbits are grossly intact. IMPRESSION: There is no hemorrhage, mass effect, or evidence of acute territorial ischemia by CT criteria. Electronically signed by: Alberto Terry M.D. 09/25/2017 7:06 AM Last Resulted CBC 09/26/17 05:28 Last Resulted BMP 09/26/17 05:28 Medication Reconciliation New Medications: Prednisone Tab (Prednisone) 10 Mg Tab 10 MG PO DIRECTED, #63 TAB 60mg x 3 days, 50mg x 3 days, 40 mg x 3 days, 30mg x 3 days, 20 mg x 3 days, 10 mg x 3 days Azithromycin (Azithromycin) 250 Mg Tab 250 MG PO QAM for 2 Days, #2 TAB Gabapentin (Gabapentin) 600 Mg Tab 1200 MG PO TID for 15 Days, #90 TAB Continued Medications: Aspirin (Aspirin Ec) 81 Mg Tab 81 MG PO QAM Atorvastatin (Atorvastatin Calcium) 10 Mg Tab 10 MG PO QAM Buspirone HCl (Buspirone HCl) 15 Mg Tab 15 MG PO BID Wukdewtpiy-Hoznyokgqstww-Bqswk (Esgic) 1 Tab Tab 1 TAB PO UD PRN for Headache TAKE ONE TABLET AT ONSET OF HEADACHE, MAY REPEAT ONE TABLET AFTER 4 HOURS IF NEEDED. DO NOT EXCEED 2 TABLETS IN 24 HOURS OR 4 TABLETS PER WEEK Carisoprodol (Soma) 350 Mg Tab 350 MG PO TID PRN for Muscle Relaxer Cholecalciferol (Vitamin D3) 1,000 Unit Cap 2000 INTER.UNIT PO QAM Divalproex Sodium (Depakote Etended-Release) 500 Mg Tabcr 500 MG PO HS Duloxetine Hcl (Cymbalta) 60 Mg Cap 60 MG PO DAILY Furosemide (Furosemide) 40 Mg Tab 40 MG PO BID Gabapentin (Gabapentin) 300 Mg Cap 900 MG PO TID 3 CAPSULES BY MOUTH 3 TIMES DAILY Home O2 Therapy (Oxygen) Gas 3 LITERS NA UD NEEDED Hydrocodone/Acetaminophen ([place] 10/325 Tab) 1 Tab Tab 2 TABS PO TID PRN for Pain MAX 6 TABLETS PER DAY Ipratropium-Albuterol (Duoneb) 3 Ml Nebu 1 TREATMENT INH QID PRN for SOB/Wheezing, INHA Metoprolol Tartrate (Lopressor) (Lopressor) 50 Mg Tab 50 MG PO BID Pantoprazole (Pantoprazole Sodium) 40 Mg Tab 40 MG PO QAM TAKE THIS MEDICATION ONCE DAILY 30 MINUTES BEFORE BREAKFAST Potassium Chloride Microencaps (Potassium Chloride Er) 20 Meq Tab 20 MEQ PO DAILY Primidone (Mysoline) 50 Mg Tab 100 MG PO QPM, TAB Primidone (Primidone) 50 Mg Tab 50 MG PO QAM Prochlorperazine Maleate (Prochlorperazine Maleate) 10 Mg Tab 10 MG PO Q6H PRN for Migraine/Nausea Warfarin Sod (Jantoven) 5 Mg Tab 5 MG PO UD TAKE 1 TABLET BY MOUTH DAILY. WILL TAKE DIRECTED; 60 Days Quantity #60 % - SIG Obtained From Miguel Discontinued Medications: Levofloxacin (Levaquin) 500 Mg Tab 500 MG PO DAILY Discharge Exam Physical Exam: General Appearance: no apparent distress Eyes: EOMI ENT: hearing grossly normal Neck: trachea midline Respiratory/Chest: no respiratory distress, no accessory muscle use Extremities: normal inspection Neurologic/Psychiatric: station tender II-XII nml as tested, alert, normal mood/affect Skin: normal color, warm/dry Hospital Course exacerbation of severe COPD -doing better, stable oxygenation - needs home O2 at all times now - set up, aware that O2 is combustible -taper steroids -finish zithromax to cover atypicals -continue inhalers as per home regimen - although may benefit from LAMA such as spiriva and inhaled steroid/LABA combination - will defer to PCP and pulmonary in this regard -smoke cessation chronic back pain -likely multifactorial (bone/disc, muscle/ligament, peripheral nerve facilitation and central nerve facilitation) - discussed multimodal approach addressing individual components to best improve her pain -muscle/ligament --> trial of OMT (asked to refer to CHETAN Manriquez DO) -PNS facilitation - increased gabapentin -[employer] facilitation - consider increase cymbalta -bone/disc - notes nonoperable, doesn't show any focal radicular sx at this time - mostly supportive care stable for home Total Time Spent: Less than 30 minutes This includes examination of the patient, discharge planning, medication reconciliation, and communication with other providers. Discharge Instructions Please refer to the electronic Patient Visit Report (Discharge Instructions) for additional information. Additional Copies To Milady Valle
== END 2017-09-26 17:00 | disposition home health service (06) | DRG 191 ==
LOC: C.EDB 13:37 → C.MED 16:43 → ENRESERV 17:14
PROVIDERS: ADMIT Family Medicine; ATTEND Family Medicine
DX: J44.1 Chronic obstructive pulmonary disease with (acute) exacerbation (principal); E87.1 Hypo-osmolality and hyponatremia; E83.42 Hypomagnesemia; I50.9 Heart failure, unspecified; F17.200 Nicotine dependence, unspecified, uncomplicated; I48.91 Unspecified atrial fibrillation; G89.29 Other chronic pain; M54.9 Dorsalgia, unspecified; Z79.01 Long term (current) use of anticoagulants; Z87.442 Personal history of urinary calculi; I25.2 Old myocardial infarction; Z95.0 Presence of cardiac pacemaker; Z86.711 Personal history of pulmonary embolism

== ENCOUNTER 2017-11-23 09:56 | Emergency (ER) | payer OTHER ==
[~2017-11-23] VITALS: Ht 165.1 cm; Wt 70.0 kg
[~2017-11-23 09:56] MED LIST changes: +AZIT-57 PO; -CYM/30 PO; -CYM30 PO; -CYM60 PO; +DULO60CA44 PO; -FRS/40 PO; +NRN600 PO; -PRD20 PO; +PRED10TA PO; -WARF-246 PO; +WARF5TAB7 PO
[2017-11-23 09:57] VITALS: TEMP 36.4; Ht 165.1 cm; Wt 70.0 kg
[2017-11-23] MEDS ORDERED: SODIUM CHLORIDE 0.9% 1000ML 1,000 ML IV STA (10:14)
--- NOTE | 2017-11-23 10:22 | EMERGENCY ROOM VISIT NOTE ---
History Report prepared by Jayjay: Tyler Brock Under the Supervision of: Dr. Virgen Dacosta M.D. First contact with patient: 10:12 Chief Complaint: EYE ASSESSMENT Stated Complaint: LEFT EYE History of Present Illness The patient is a 62 year old female who presents to the Emergency Room with complaints of worsening/constant pain in her left eye that began yesterday after a traumatic fall. The patient states that she does not remember how the fall happened, but knows that she fell into the corner of the table and hit her eye/face. She is currently having pain in the eye, back, and neck. She has chronic back pain and denies that there is any new pain from the fall. She denies any vomiting episodes since the accident. She is also having double vision. The patient's family claim that she has been worsening in confusion since yesterday. She takes Coumadin daily. Source of History: patient, family Onset: Yesterday Position: eye (left) Timing: worsening Associated Symptoms: + neck pain, + back pain, No vomiting Review of Systems See HPI for pertinent positives & negatives. A total of 10 systems reviewed and were otherwise negative. Past Medical & Surgical Medical Problems: (1) Abdominal pain (2) CHF (congestive heart failure) (3) COPD (chronic obstructive pulmonary disease) (4) H/O cardiac pacemaker (5) H/O unilateral nephrectomy (6) History of - pulmonary embolus (7) Kidney stones (8) Myocardial infarction (9) SOB (shortness of breath) (10) Stroke-like symptoms Surgical Problems: (1) AICD (automatic cardioverter/defibrillator) present Family History No significant family history Social History Smoking Status: Current Every Day Smoker Alcohol Use: none Drug Use: none Marital Status: Housing Status: lives with family Occupation Status: unemployed Current/Historical Medications Scheduled Aspirin (Aspirin Ec), 81 MG PO QAM Atorvastatin (Lipitor), 10 MG PO QAM Azithromycin (Azithromycin), 250 MG PO QAM Buspirone HCl (Buspirone HCl), 15 MG PO BID Cholecalciferol (Vitamin D3), 2,000 INTER.UNIT PO QAM Divalproex Sodium (Depakote Etended-Release), 500 MG PO HS Duloxetine Hcl (Cymbalta), 60 MG PO DAILY Furosemide (Furosemide), 40 MG PO BID Gabapentin (Gabapentin), 900 MG PO TID Gabapentin (Gabapentin), 1,200 MG PO TID Home O2 Therapy (Oxygen), 3 LITERS NA UD Metoprolol Tartrate (Lopressor) (Lopressor), 50 MG PO BID Pantoprazole (Pantoprazole Sodium), 40 MG PO QAM Potassium Chloride Microencaps (Potassium Chloride Er), 20 MEQ PO DAILY Prednisone Tab (Prednisone), 10 MG PO DIRECTED Primidone (Mysoline), 100 MG PO QPM Primidone (Primidone), 50 MG PO QAM Warfarin Sod (Jantoven), 5 MG PO UD Scheduled PRN Nvpbdkxoxc-Ligrfsynzrrpp-Uxueo (Esgic), 1 TAB PO UD PRN for Headache Carisoprodol (Soma), 350 MG PO TID PRN for Muscle Relaxer Hydrocodone/Acetaminophen (Levering 10/325 Tab), 2 TABS PO TID PRN for Pain Ipratropium-Albuterol (Duoneb), 1 TREATMENT INH QID PRN for SOB/Wheezing Prochlorperazine Maleate (Prochlorperazine Maleate), 10 MG PO Q6H PRN for Migraine/Nausea Allergies Coded Allergies: Penicillins (Verified Allergy, Severe, HIVES, 09/24/17) Nitroglycerin (Verified Allergy, Unknown, TOLD NOT TO TAKE BY CARDIOLOGY, 09/24/17) Morphine (Verified Adverse Reaction, Unknown, HALLUCINATE, 09/24/17) Oxycodone (Verified Adverse Reaction, Unknown, FROM PERCOCET-ITCHING, ) Physical Exam Vital Signs Date Time Temp Pulse Resp B/P (MAP) Pulse Ox O2 Delivery O2 Flow Rate FiO2 11/23/17 11:45 57 18 108/63 92 11/23/17 11:18 57 18 108/63 92 Room Air 11/23/17 11:17 59 11/23/17 09:57 36.4 78 18 122/72 94 Physical Exam Vital signs reviewed. General: Well-appearing female, in no significant distress. HEENT: No scleral icterus, PERRLA, neck supple. Atraumatic. There is left periorbital tenderness and swelling with subconjunctival hemorrhage. EOMI. Cardiovascular: Regular rate and rhythm, no extra sounds. Pulmonary: Clear to auscultation bilaterally, normal work of breathing. Abdomen: Soft, nontender, nondistended, positive bowel sounds. Musculoskeletal: There is tenderness to palpation over the lumbar spine, no step off, no deformity, no swelling. Atraumatic, no peripheral edema. There is tenderness over the cervical spine, no step off, no swelling. Neurologic: Patient awake alert and oriented x 3, full strength in all 4 extremities. Cranial nerves 2 through 12 grossly intact. Skin: Warm, dry, no rash Medical Decision & Procedures ER Provider Diagnostic Interpretation: Radiology results as stated below per my review and radiologist interpretation: CT SCAN OF THE CERVICAL SPINE CLINICAL HISTORY: Fall. Neck pain. COMPARISON STUDY: Radiographs of the cervical spine dated 07/28/2015. Chest CT dated 04/14/2015. TECHNIQUE: CT scan of the cervical spine is performed from the skull base to the upper thoracic spine. Images are reviewed in the axial, sagittal, and coronal planes. IV contrast was not administered for this examination. A dose lowering technique was utilized adhering to the principles of ALARA. CT DOSE: 473.94 mGycm FINDINGS: Skeletal structures: The skeletal structures are osteopenic. There is no evidence of fracture or subluxation involving the cervical spine. Vertebral body height and alignment are maintained. The odontoid process and lateral masses are intact. The atlantoaxial articulation is preserved noting productive degenerative change. The spinous processes appear intact. Mild multilevel spondylotic change is identified. Intervertebral discs: The disc spaces are well maintained. Central canal: Widely patent. Soft tissues: The prevertebral and paraspinous soft tissues are within normal limits. Pacemaker leads are noted in the right axilla. Midline sternotomy wires are identified. Atherosclerotic calcification is noted in the carotid bulbs. Calvarium: The visualized calvarium at the skull base appears intact. Brain parenchyma: Partially visualized brain parenchyma the skull base is within normal limits. Sinuses and mastoids: The visualized paranasal sinuses are clear. There is a small left mastoid effusion. Findings suggest previous left mastoid surgery. The right mastoid air cells are clear. Cerumen is noted in the left external auditory canal. Lung apices: Emphysema is noted at the lung apices. There is a 4 mm left apical nodule seen image #554. This was not clearly seen on prior chest CT scans. A tiny calcified granulomas noted at the right apex. Secretions are noted in the trachea. IMPRESSION: 1. There is no evidence of fracture or subluxation involving the cervical spine. 2. Osteopenia and mild spondylotic change as above. 3. Emphysema. 4. There is a 4 mm left apical pulmonary nodule. This was not clearly seen on prior chest CT scans. Follow-up with a nonemergent CT of the chest is recommended for further interrogation. Electronically signed by: Alberto Terry M.D. 11/23/2017 11:00 AM Dictated Date/Time: 11/23/2017 10:55 AM HEAD WITHOUT CONTRAST (CT) CT DOSE: 788.63 mGycm HISTORY: Trauma FALL, CHI TECHNIQUE: Multiaxial CT images of the head were performed without the use of intravenous contrast. A dose lowering technique was utilized adhering to the principles of ALARA. Comparison: None. Findings: Chronic sclerosis of mastoid air cells. The calvarium and skull base are intact. The ventricles and sulci are within normal limits. There is no mass, hematoma, midline shift, or acute infarct. Stable 1.5 cm calcification right parietal convexity. This is unchanged as compared to prior exams is considered a chronic finding. Impression: No acute intracranial abnormality. The above report was generated using voice recognition software. It may contain grammatical, syntax or spelling errors. Electronically signed by: Bryan Butts M.D. 11/23/2017 10:56 AM Dictated Date/Time: 11/23/2017 10:54 AM FACIAL BONES-MXILLOFAC WITHOUT CT DOSE: 514.37 mGycm HISTORY: Trauma facial injury, eye, fall TECHNIQUE: Multiaxial CT images of the maxillofacial region were performed and reformatted in the coronal plane without the use of contrast. A dose lowering technique was utilized adhering to the principles of ALARA. COMPARISON: None. FINDINGS: The visualized cervical spine, skull base, pterygoid plates, nasal bones, lamina papyracea, orbital floors, mandible, and zygomatic arches are intact. No fractures. The orbits are unremarkable. Chronic sclerosis of the mastoid air cells. Considerable degenerative change temporomandibular joints. IMPRESSION: No fractures within the maxillofacial region. Chronic sclerosis of the mastoid air cells. Considerable degenerative change temporomandibular joints. The above report was generated using voice recognition software. It may contain grammatical, syntax or spelling errors. Electronically signed by: Bryan Butts M.D. 11/23/2017 10:59 AM Dictated Date/Time: 11/23/2017 10:57 AM Laboratory Results 11/23/17 10:10 Red Blood Count 3.91, Mean Corpuscular Volume 100.3, Mean Corpuscular Hemoglobin 34.0, Mean Corpuscular Hemoglobin Concent 33.9, Mean Platelet Volume 10.5, Neutrophils (%) (Auto) 69.4, Lymphocytes (%) (Auto) 21.3, Monocytes (%) ( Auto) 7.2, Eosinophils (%) (Auto) 1.5, Basophils (%) (Auto) 0.4, Neutrophils # ( Auto) 6.99, Lymphocytes # (Auto) 2.14, Monocytes # (Auto) 0.73, Eosinophils # ( Auto) 0.15, Basophils # (Auto) 0.04 11/23/17 10:10 Test 11/23/17 10:10 11/23/17 10:19 White Blood Count 10.07 K/uL (4.8-10.8) Red Blood Count 3.91 M/uL (4.2-5.4) Hemoglobin 13.3 g/dL (12.0-16.0) Hematocrit 39.2 % (37-47) Mean Corpuscular Volume 100.3 fL (80-100) Mean Corpuscular Hemoglobin 34.0 pg (25-34) Mean Corpuscular Hemoglobin Concent 33.9 g/dl (32-36) Platelet Count 236 K/uL (130-400) Mean Platelet Volume 10.5 fL (7.4-10.4) Neutrophils (%) (Auto) 69.4 % Lymphocytes (%) (Auto) 21.3 % Monocytes (%) (Auto) 7.2 % Eosinophils (%) (Auto) 1.5 % Basophils (%) (Auto) 0.4 % Neutrophils # (Auto) 6.99 K/uL (1.4-6.5) Lymphocytes # (Auto) 2.14 K/uL (1.2-3.4) Monocytes # (Auto) 0.73 K/uL (0.11-0.59) Eosinophils # (Auto) 0.15 K/uL (0-0.5) Basophils # (Auto) 0.04 K/uL (0-0.2) RDW Standard Deviation 55.4 fL (36.4-46.3) RDW Coefficient of Variation 15.3 % (11.5-14.5) Immature Granulocyte % (Auto) 0.2 % Immature Granulocyte # (Auto) 0.02 K/uL (0.00-0.02) Prothrombin Time 14.0 SECONDS (9.0-12.0) Prothromb Time International Ratio 1.3 (0.9-1.1) Activated Partial Thromboplast Time 29.8 SECONDS (21.0-31.0) Partial Thromboplastin Ratio 1.1 Anion Gap 4.0 mmol/L (3-11) Est Creatinine Clear Calc Drug Dose 65.7 ml/min Estimated GFR () 83.3 Estimated GFR (Non- 71.9 BUN/Creatinine Ratio 9.7 (10-20) Calcium Level 9.5 mg/dl (8.5-10.1) Total Bilirubin 0.4 mg/dl (0.2-1) Direct Bilirubin < 0.1 mg/dl (0-0.2) Aspartate Amino Transf (AST/SGOT) 15 U/L (15-37) Alanine Aminotransferase (ALT/SGPT) 14 U/L (12-78) Alkaline Phosphatase 127 U/L (45-117) Total Protein 7.6 gm/dl (6.4-8.2) Albumin 3.3 gm/dl (3.4-5.0) Bedside Troponin I 1.210 ng/ml (0-0.045) Laboratory results per my review. Medications Administered Medications (Trade) Dose Ordered Sig/Johnie Route Start Time Stop Time Status Last Admin Dose Admin Sodium Chloride 1,000 ml @ 125 mls/hr Q8H STAT IV 11/23/17 10:14 11/23/17 13:00 DC 11/23/17 10:14 125 MLS/HR Hydromorphone HCl (Dilaudid Inj) 0.5 mg NOW STAT IV 11/23/17 10:31 11/23/17 10:32 DC 11/23/17 11:17 0.5 MG Ondansetron HCl (Zofran Inj) 4 mg NOW STAT IV 11/23/17 11:27 11/23/17 11:28 DC 11/23/17 11:33 4 MG ECG Indication: altered mental status (Secondary to fall) Rate (beats per minute): 61 Rhythm: other (Ventricularly Paced ) Findings: paced rhythm, no ectopy, other (QTC 511) Change: Patient's electrocardiogram interpreted by me. ED Course 1014: Ordered Sodium Chloride 1000 mL @ 125 mL/hr IV. 1017: Past medical records reviewed. The patient was evaluated in room A3. A complete history and physical examination was performed. 1031: Ordered Dilaudid HCl 0.5 mg IV 1130: Upon reevaluation, the patient appeared to have improvement of her symptoms. I discussed findings with her. She verbalized agreement of the treatment plan. The patient was discharged home. Medical Decision Differential diagnosis: Etiologies such as fracture, dislocation, intra-abdominal, pneumothorax, intrathoracic , intracranial, neurologic, as well as other traumatic pathologies were entertained. This patient was evaluated and appeared to be in no significant distress. Physical examination reveals ecchymosis to the left periorbital area with a subconjunctival hemorrhage. The patient has full range of motion of the globe. Pupils are equal and reactive. CT scan of the head, face and cervical spine were performed and are negative. Patient's INR is subtherapeutic at 1.3. Patient had been hydrated with normal saline solution. She was complaining of pain and was given IV Dilaudid and Zofran. She was reevaluated and feeling improved. I have recommended that she hold her Coumadin tonight and reinitiate again tomorrow. She'll follow-up with her physician as well as ophthalmology for reevaluation. She will return to the ER for worsening of symptoms or any medical concerns. Blood Pressure Screening Patient's blood pressure: Normal blood pressure Impression Primary Impression: Facial contusion Additional Impression: Subconjunctival hemorrhage of left eye Scribe Attestation The scribe's documentation has been prepared under my direction and personally reviewed by me in its entirety. I confirm that the note above accurately reflects all work, treatment, procedures, and medical decision making performed by me. Departure Information Dispostion Home / Self-Care Referrals Milady Valle (PCP) Forms HOME CARE DOCUMENTATION FORM, IMPORTANT VISIT INFORMATION, WORK / SCHOOL INSTRUCTIONS Patient Instructions My [facility] Additional Instructions Diagnosis: Left facial contusion, subconjunctival hemorrhage, fall Please hold your Coumadin this evening. Start again tomorrow. Tylenol 650 mg every 6 hours as needed for pain. Follow-up with your physician this week for reevaluation. Contact your eye doctor for reevaluation within the next several days. Return to the ER for worsening of symptoms or any medical concerns. Problem Qualifiers
[2017-11-23 10:25] LABS: BASO % 0.4 %; BASO ABS # 0.04 K/uL (0-0.2); EOS % 1.5 %; EOS ABS # 0.15 K/uL (0-0.5); HEMATOCRIT 39.2 % (37-47); HEMOGLOBIN 13.3 g/dL (12.0-16.0); IG# 0.02 K/uL (0.00-0.02); LYMPH % 21.3 %; LYMPH ABS # 2.14 K/uL (1.2-3.4); MEAN CELL VOLUME 100.3 fL (80-100); MEAN CORPUSCULAR HGB CONC 33.9 g/dl (32-36); MEAN PLATELET VOLUME 10.5 fL (7.4-10.4); MONO % 7.2 %; MONO ABS # 0.73 K/uL (0.11-0.59); NEUT % 69.4 %; NEUT ABS # 6.99 K/uL (1.4-6.5); PLATELET COUNT 236 K/uL (130-400); RED CELL DISTRIBUTION WIDTH CV 15.3 % (11.5-14.5); RED CELL DISTRIBUTION WIDTH SD 55.4 fL (36.4-46.3); WHITE BLOOD COUNT 10.07 K/uL (4.8-10.8)
[2017-11-23] MEDS ORDERED: HYDROmorphone INJ 0.5 MG/0.5 ML SYR IV STA (10:31)
[2017-11-23 10:34] LABS: INR 1.3 (0.9-1.1); PTT PATIENT 29.8 SECONDS (21.0-31.0)
[2017-11-23 10:42] LABS: ALBUMIN 3.3 gm/dl (3.4-5.0); ALT/SGPT 14 U/L (12-78); BLOOD UREA NITROGEN 8 mg/dl (7-18); CALCIUM 9.5 mg/dl (8.5-10.1); CARBON DIOXIDE 36 mmol/L (21-32); CREATININE 0.86 mg/dl (0.60-1.20); GLUCOSE 70 mg/dl (70-99); POTASSIUM 4.3 mmol/L (3.5-5.1); SODIUM 134 mmol/L (136-145)
[2017-11-23 10:45] LABS: ALKALINE PHOSPHATASE 127 U/L (45-117); AST/SGOT 15 U/L (15-37); TOTAL PROTEIN 7.6 gm/dl (6.4-8.2)
--- NOTE | 2017-11-23 10:58 | DIAGNOSTIC IMAGING REPORT ---
HEAD WITHOUT CONTRAST (CT) CT DOSE: 788.63 mGycm HISTORY: Trauma FALL, CHI TECHNIQUE: Multiaxial CT images of the head were performed without the use of intravenous contrast. A dose lowering technique was utilized adhering to the principles of ALARA. Comparison: None. Findings: Chronic sclerosis of mastoid air cells. The calvarium and skull base are intact. The ventricles and sulci are within normal limits. There is no mass, hematoma, midline shift, or acute infarct. Stable 1.5 cm calcification right parietal convexity. This is unchanged as compared to prior exams is considered a chronic finding. Impression: No acute intracranial abnormality. The above report was generated using voice recognition software. It may contain grammatical, syntax or spelling errors. Electronically signed by: Bryan Butts M.D. 11/23/2017 10:56 AM Dictated Date/Time: 11/23/2017 10:54 AM
--- NOTE | 2017-11-23 11:01 | DIAGNOSTIC IMAGING REPORT ---
FACIAL BONES-MXILLOFAC WITHOUT CT DOSE: 514.37 mGycm HISTORY: Trauma facial injury, eye, fall TECHNIQUE: Multiaxial CT images of the maxillofacial region were performed and reformatted in the coronal plane without the use of contrast. A dose lowering technique was utilized adhering to the principles of ALARA. COMPARISON: None. FINDINGS: The visualized cervical spine, skull base, pterygoid plates, nasal bones, lamina papyracea, orbital floors, mandible, and zygomatic arches are intact. No fractures. The orbits are unremarkable. Chronic sclerosis of the mastoid air cells. Considerable degenerative change temporomandibular joints. IMPRESSION: No fractures within the maxillofacial region. Chronic sclerosis of the mastoid air cells. Considerable degenerative change temporomandibular joints. The above report was generated using voice recognition software. It may contain grammatical, syntax or spelling errors. Electronically signed by: Bryan Butts M.D. 11/23/2017 10:59 AM Dictated Date/Time: 11/23/2017 10:57 AM
--- NOTE | 2017-11-23 11:01 | DIAGNOSTIC IMAGING REPORT ---
CT SCAN OF THE CERVICAL SPINE CLINICAL HISTORY: Fall. Neck pain. COMPARISON STUDY: Radiographs of the cervical spine dated 07/28/2015. Chest CT dated 04/14/2015. TECHNIQUE: CT scan of the cervical spine is performed from the skull base to the upper thoracic spine. Images are reviewed in the axial, sagittal, and coronal planes. IV contrast was not administered for this examination. A dose lowering technique was utilized adhering to the principles of ALARA. CT DOSE: 473.94 mGycm FINDINGS: Skeletal structures: The skeletal structures are osteopenic. There is no evidence of fracture or subluxation involving the cervical spine. Vertebral body height and alignment are maintained. The odontoid process and lateral masses are intact. The atlantoaxial articulation is preserved noting productive degenerative change. The spinous processes appear intact. Mild multilevel spondylotic change is identified. Intervertebral discs: The disc spaces are well maintained. Central canal: Widely patent. Soft tissues: The prevertebral and paraspinous soft tissues are within normal limits. Pacemaker leads are noted in the right axilla. Midline sternotomy wires are identified. Atherosclerotic calcification is noted in the carotid bulbs. Calvarium: The visualized calvarium at the skull base appears intact. Brain parenchyma: Partially visualized brain parenchyma the skull base is within normal limits. Sinuses and mastoids: The visualized paranasal sinuses are clear. There is a small left mastoid effusion. Findings suggest previous left mastoid surgery. The right mastoid air cells are clear. Cerumen is noted in the left external auditory canal. Lung apices: Emphysema is noted at the lung apices. There is a 4 mm left apical nodule seen image #554. This was not clearly seen on prior chest CT scans. A tiny calcified granulomas noted at the right apex. Secretions are noted in the trachea. IMPRESSION: 1. There is no evidence of fracture or subluxation involving the cervical spine. 2. Osteopenia and mild spondylotic change as above. 3. Emphysema. 4. There is a 4 mm left apical pulmonary nodule. This was not clearly seen on prior chest CT scans. Follow-up with a nonemergent CT of the chest is recommended for further interrogation. Electronically signed by: Alberto Terry M.D. 11/23/2017 11:00 AM Dictated Date/Time: 11/23/2017 10:55 AM
[2017-11-23] MEDS ORDERED: ONDANSETRON INJ 2 MG/ML 2 ML VIAL IV STA (11:27)
[2017-11-23 11:45] VITALS: BP 108/63; PULSE 57; O2SAT 92
== END 2017-11-23 11:46 | disposition home or self-care (01) ==
LOC: C.EDB 09:57 → C.EDA 11:46
DX: S00.83XA Contusion of other part of head, initial encounter (principal); H57.8 Other specified disorders of eye and adnexa; H57.12 Ocular pain, left eye; I50.9 Heart failure, unspecified; J44.9 Chronic obstructive pulmonary disease, unspecified; Z95.0 Presence of cardiac pacemaker; I25.2 Old myocardial infarction; F17.200 Nicotine dependence, unspecified, uncomplicated; Z79.82 Long term (current) use of aspirin; Z79.01 Long term (current) use of anticoagulants; Z51.81 Encounter for therapeutic drug level monitoring; J43.9 Emphysema, unspecified

== ENCOUNTER → 2017-12-17 | Outpatient (CLI) | payer OTHER ==
[~2017-12-17] MED LIST changes: +GABA-1219 PO; -GABA1CAP4 PO
--- NOTE | 2017-12-17 10:10 | DIAGNOSTIC IMAGING REPORT ---
L FOOT MIN 3 VIEWS ROUTINE CLINICAL HISTORY: M25.572 LEFT FOOT PAIN COMPARISON: 01/10/2017 DISCUSSION: No fractures or dislocations are visualized. There is Achilles insertional spur. There is mild lateral soft tissue swelling, the level the ankle. IMPRESSION: No fractures or dislocations identified. Mild soft tissue swelling. Electronically signed by: Alphonso Gracia M.D. 12/17/2017 10:08 AM Dictated Date/Time: 12/17/2017 10:07 AM
--- NOTE | 2017-12-17 10:29 | DIAGNOSTIC IMAGING REPORT ---
LEFT ANKLE 3 VIEWS CLINICAL HISTORY: Left ankle pain. FINDINGS: 3 views of the left ankle are compared to study dated 08/31/2012. The skeletal structures are osteopenic. No fracture is seen. The ankle mortise is intact. There are tiny dorsal and plantar calcaneal enthesophytes. No joint effusion is identified. Soft tissue edema is present around the ankle. IMPRESSION: 1. Soft tissue swelling with no acute bony abnormality seen in the left ankle. 2. Osteopenia and heel spurs as above. Electronically signed by: Alberto Terry M.D. 12/17/2017 10:28 AM Dictated Date/Time: 12/17/2017 10:26 AM
== END | disposition home or self-care (01) ==
LOC: C.RAD1850 09:46
PROVIDERS: ATTEND Nurse Practitioner Family
DX: M25.572 Pain in left ankle and joints of left foot (principal)

== ENCOUNTER → 2017-12-27 | Outpatient (CLI) | payer OTHER ==
[~2017-12-27] MED LIST changes: +OPTIRAY 320 IV PRN
--- NOTE | 2017-12-27 16:33 | DIAGNOSTIC IMAGING REPORT ---
CT OF THE CHEST WITH IV CONTRAST CLINICAL HISTORY: SOLITARY PULMONARY NODULE, HX TOBACCO USE DISORDER, COPD COMPARISON STUDY: June 30, 2016 TECHNIQUE: Following the IV administration of 60 mL of Optiray-320, CT of the thorax was performed from the thoracic inlet to the lung bases. Images are reviewed in the axial, sagittal, and coronal planes. IV contrast was administered without complication. A dose lowering technique was utilized adhering to the principles of ALARA. CT DOSE: 247.23 mGy.cm FINDINGS: Thyroid: Imaged portions of the thyroid gland are normal in appearance. Thoracic aorta: The thoracic aorta is normal in course and caliber, noting standard 3-vessel arch anatomy. No aneurysm or dissection is seen. Pulmonary vasculature: The pulmonary trunk is normal in caliber. There are no central filling defects identified to suggest pulmonary embolus. Note that this examination was not protocoled for the evaluation of pulmonary emboli. HEART: The heart is enlarged. There is a right subclavian pacemaker present. Lungs and pleural spaces: There are no pleural effusions. There is upper lobe predominant pulmonary emphysema. There is no focal pulmonary consolidation. There is a stable 6 mm left lower lobe opacity likely representing focal atelectasis. There are few scattered 2 mm apical nodules, statistically postinflammatory. Mediastinum: There is a mildly enlarged 11 mm precarinal lymph node. Rosemarie: There is no evidence of pathologic hilar adenopathy Axilla: There is no evidence of pathologic axillary lymphadenopathy Upper abdomen: Partially visualized upper abdominal viscera is within normal limits. Skeletal structures: There are no lytic or blastic osseous lesions. IMPRESSION: 1. Cardiomegaly 2. Minimally enlarged precarinal lymph node 3. Stable 6 mm left lower lobe opacity, likely representing focal atelectasis 4. Upper lobe predominant emphysema 5. Scattered 2 mm apical nodules, statistically postinflammatory Electronically signed by: Alphonso Gracia M.D. 12/27/2017 4:32 PM Dictated Date/Time: 12/27/2017 4:24 PM
== END | disposition home or self-care (01) ==
LOC: C.CTS 16:01
PROVIDERS: ATTEND Nurse Practitioner Family
DX: R91.1 Solitary pulmonary nodule (principal); J44.9 Chronic obstructive pulmonary disease, unspecified; Z72.0 Tobacco use

== ENCOUNTER 2018-01-16 22:27 | Emergency (ER) | payer OTHER ==
[~2018-01-16] VITALS: Ht 157.5 cm; Wt 69.4 kg
[~2018-01-16 22:27] MED LIST changes: -OPTIRAY 320 IV PRN
[2018-01-16 22:28] VITALS: Ht 157.5 cm; Wt 69.4 kg
[2018-01-16] MEDS ORDERED: LIDOCAINE/EPINEPH/TETRACAINE 1 EA SYR EXT STA (23:19)
[2018-01-16] MEDS ORDERED: ACETAMINOPHEN 500 MG TAB PO STA (23:19)
[2018-01-16] MEDS ORDERED: DIPHTHERIA/TETANUS/PERTUSSIS 0.5 ML SYR/VIAL IM. ONE (23:30)
[2018-01-17 00:01] LABS: INR 2.2 (0.9-1.1); PTT PATIENT 36.4 SECONDS (21.0-31.0)
[2018-01-17] MEDS ORDERED: XYLOCAINE 1%/SOD BICARB 20 ML VIAL INFIL ONE (00:23)
[2018-01-17 00:35] VITALS: TEMP 36.3
[2018-01-17] MEDS ORDERED: CEFUROXIME AXETIL 500 MG TAB PO STA (00:51)
[2018-01-17] MEDS ORDERED: CLINDAMYCIN HCL 150 MG CAP PO ONE (01:00)
[2018-01-17 01:05] VITALS: BP 115/75; PULSE 96; O2SAT 95
[2018-01-17] MEDS ORDERED: CEFU1TAB36 PO (01:05)
[2018-01-17] MEDS ORDERED: CLIN150C PO (01:05)
--- NOTE | 2018-01-17 03:32 | EMERGENCY ROOM VISIT NOTE ---
History First contact with patient: 23:05 Chief Complaint: LACERATION/CUT (SUT/DERMABOND) Stated Complaint: TRIED BREAKING UP DOG FIGHT, LACERTATION ON HEAD Nursing Triage Summary: pt reports attempting to break up 2 dogs that were fighting lac to forehead above L eye skin tears R fore arm pt on coumadin denies LOC or falling History of Present Illness The patient is a 62 year old female who presents to the Emergency Room with complaints of right eyebrow laceration with head injury and abrasions to right arm while she was trying to break up her 2 dogs that were fighting. The dogs scratched her. There was no dog bite. Patient is on Coumadin. INR last week was 1.6. Tetanus is not current. Patient complains of a mild headache described as throbbing, ranging in severity 4 out of 10 to the frontal region. Nothing makes it better or worse. It does not radiate. Patient denies loss of conscious, neck pain, chest pain, dyspnea, numbness, tingling, facial pain. Patient states the dog's immunizations are current. She states there is no concern for rabies. Review of Systems An 10 system review of systems was completed with positives and pertinent negatives listed in the HPI. Past Medical/Surgical History Medical Problems: (1) Abdominal pain (2) CHF (congestive heart failure) (3) COPD (chronic obstructive pulmonary disease) (4) H/O cardiac pacemaker (5) H/O unilateral nephrectomy (6) History of - pulmonary embolus (7) Kidney stones (8) Myocardial infarction (9) SOB (shortness of breath) (10) Stroke-like symptoms Surgical Problems: (1) AICD (automatic cardioverter/defibrillator) present Family History No significant family history Social History Smoking Status: Current Every Day Smoker Alcohol Use: none Drug Use: none Marital Status: Housing Status: lives with family Occupation Status: unemployed Current/Historical Medications Scheduled Aspirin (Aspirin Ec), 81 MG PO QAM Atorvastatin (Lipitor), 10 MG PO QAM Azithromycin (Azithromycin), 250 MG PO QAM Buspirone HCl (Buspirone HCl), 15 MG PO BID Cefuroxime Axetil (Cefuroxime Axetil), 1 TAB PO BID Cholecalciferol (Vitamin D3), 2,000 INTER.UNIT PO QAM Clindamycin Hcl (Cleocin), 3 CAP PO QID Divalproex Sodium (Depakote Etended-Release), 500 MG PO HS Duloxetine Hcl (Cymbalta), 60 MG PO DAILY Furosemide (Furosemide), 40 MG PO BID Gabapentin (Gabapentin), 900 MG PO TID Gabapentin (Gabapentin), 1,200 MG PO TID Home O2 Therapy (Oxygen), 3 LITERS NA UD Metoprolol Tartrate (Lopressor) (Lopressor), 50 MG PO BID Pantoprazole (Pantoprazole Sodium), 40 MG PO QAM Potassium Chloride Microencaps (Potassium Chloride Er), 20 MEQ PO DAILY Prednisone Tab (Prednisone), 10 MG PO DIRECTED Primidone (Mysoline), 100 MG PO QPM Primidone (Primidone), 50 MG PO QAM Warfarin Sod (Jantoven), 5 MG PO UD Scheduled PRN Crhmbhkavy-Ihegvvuhckwyc-Mqxmu (Esgic), 1 TAB PO UD PRN for Headache Carisoprodol (Soma), 350 MG PO TID PRN for Muscle Relaxer Hydrocodone/Acetaminophen ([place] 10/325 Tab), 2 TABS PO TID PRN for Pain Ipratropium-Albuterol (Duoneb), 1 TREATMENT INH QID PRN for SOB/Wheezing Prochlorperazine Maleate (Prochlorperazine Maleate), 10 MG PO Q6H PRN for Migraine/Nausea Physical Exam Vital Signs Date Time Temp Pulse Resp B/P (MAP) Pulse Ox O2 Delivery O2 Flow Rate FiO2 01/17/18 01:05 96 20 115/75 95 01/17/18 00:35 36.3 96 20 115/75 95 Room Air 01/16/18 22:28 36.3 82 20 108/66 94 Room Air Physical Exam VITALS: Vitals are noted on the nurse's note and reviewed by myself. Vital signs stable. GENERAL: Pleasant female, in no acute distress, nondiaphoretic, well-developed well-nourished. SKIN: Right eyebrow with 3 cm laceration that is gaping and jagged that appears clean, multiple skin tears to right forearm that appears clean. The rest of the skin was without rashes, erythema, edema, or bruising. There is no tenting of the skin. Capillary reflex less than 2 seconds. HEAD: Normocephalic atraumatic. Face: Nontender to palpation, contusion over right eyebrow. Patient can fully open and close jaw without pain. EARS: External auditory canals clear, tympanic membranes pearly guerra without erythema or effusion bilaterally. EYES: Pupils equal round and reactive to light and accommodation. Conjunctivae without injection, sclerae without icterus. Extraocular movements intact. NOSE: Patent, turbinates without inflammation or discharge. No sinus tenderness. MOUTH: Mucous membranes moist. Pharynx without erythema or exudate. Uvula midline. Airway patent. Tongue does not deviate. NECK: Supple without nuchal rigidity. No lymphadenopathy. No thyromegaly. Cervical spine is nontender. No JVD. HEART: Regular rate and rhythm without murmurs gallops or rubs. LUNGS: Clear to auscultation bilaterally without wheezes, rales or rhonchi. No retractions or accessory muscle use. ABDOMEN: Positive bowel sounds x 4. Normal tympanic percussion. Soft, nontender, without masses or organomegaly. Zepeda sign negative. No guarding or rebound tenderness. No CVA tenderness MUSCULOSKELETAL: No muscle atrophy, erythema, or edema noted. NEURO: Patient was alert and oriented to person place and time. Normal sensation to light and sharp touch. No focal neurological deficits. Medical Decision & Procedures Laboratory Results Test 01/16/18 23:40 Prothrombin Time 22.5 SECONDS (9.0-12.0) Prothromb Time International Ratio 2.2 (0.9-1.1) Activated Partial Thromboplast Time 36.4 SECONDS (21.0-31.0) Partial Thromboplastin Ratio 1.4 Medications Administered Medications (Trade) Dose Ordered Sig/Johnie Route Start Time Stop Time Status Last Admin Dose Admin Diphtheria/ Pertussis/Tetanus Vacc (Adacel Inj) 0.5 ml ONCE ONCE IM. 01/16/18 23:30 01/16/18 23:31 DC 01/16/18 23:28 0.5 ML Tetracaine/ Epinephrine/ Lidocaine (L.e.t. Gel 4%/ 1:100/0.5%) 1 ea NOW STAT EXT 01/16/18 23:19 01/16/18 23:21 DC 01/16/18 23:26 1 EA Acetaminophen (Tylenol Tab) 1,000 mg NOW STAT PO 01/16/18 23:19 01/16/18 23:21 DC 01/16/18 23:27 1,000 MG Clindamycin HCl (Cleocin Cap) 450 mg NOW ONCE PO 01/17/18 01:00 01/17/18 01:02 DC 01/17/18 01:09 450 MG Cefuroxime Axetil (Ceftin Tab) 500 mg NOW STAT PO 01/17/18 00:51 01/17/18 01:02 DC 01/17/18 01:09 500 MG Procedure Location: face Total length: 3cm Complexity: simple Verbal consent was obtained after the risks and benefits were explained, including but not limited to bleeding, scarring, infection, pain, and bone/joint /nerve damage. At this time, the risks of the procedure are less than the risks of NOT performing the procedure. A time out was taken and the correct patient and site identified. The skin was prepped with betadine. The target area was anesthetized with LET and 2 ml of 1% lidocaine without epinephrine. Copious irrigation was performed using NSS. The skin was re-prepped with betadine and a sterile field set. The wound was explored for foreign bodies and none found. Examination revealed no injury to deep structures such as tendons, bone, or significant blood vessels. Debridement was not performed. The wound edges were approximated using 7, 6-0 simple interrupted nylon sutures. Hemostasis and excellent approximation was achieved. Antibacterial ointment and a sterile dressing applied. Detailed wound care instructions and signs and symptoms of infection reviewed with the pt. No complications and the patient tolerated the procedure well. ED Course Prior records/ancillary studies reviewed. Triage Nursing notes reviewed. Additional history obtained from family. The patient's history was concerning for traumatic head injury Differential diagnosis: Etiologies such as concussion, contusion, fracture, subdural hematoma, epidural hematoma, intraparenchymal hemorrhage, as well as other traumatic pathologies were entertained. Physical examination findings: As above. ER treatment provided: P.o. Tylenol, tetanus On reassessment the patient felt better. Diagnostics interpreted by me: Wound care by nursing. The labs revealed INR was 2.4 Imaging studies: Head CT negative for intracranial bleed per radiology It appears the patient has a head injury. Patient is on Coumadin so CT imaging was ordered. This is negative for intracranial bleed. Patient was counseled on head injury signs and symptoms and on laceration care. Patient was scratched by her dog and was started on antibiotics. She is given a tetanus shot. Dog's rabies shots are up-to-date. Patient was counseled on laceration care and on wound care. She is advised to follow-up family care in a few days here in the ER sooner for headache, fevers, vomiting, confusion, worsening signs or symptoms or as needed. Patient was neurovascularly and neurologically intact. She was well-appearing. By the evaluation outlined above emergent etiologies such as fracture, subdural hematoma, epidural hematoma, intraparenchymal hemorrhage, as well as others were deemed relatively unlikely. The pt informed about the findings as listed above. All questions were answered and pleased with the treatment. Return instructions were outlined and the patient was discharged in stable condition. Outpatient Prescription Management: Cleocin, cefuroxime Referral: The patient was referred back to their primary care physician for follow-up in 2 to 3 days for a recheck of the current condition. Case reviewed with my attending The chart was completed utilizing [employer] Speech voice recognition software. Grammatical errors, random word insertions, pronoun errors, and incomplete sentences are an occassional consequence of this system due to software limitations, ambient noise, and hardware issues. Any formal questions or concerns about the content, text, or information contained within the body of this dictation should be directly addressed to the physician assistant winemaker for clarification. Medical Decision as above Impression Primary Impression: Facial contusion Additional Impressions: Facial laceration Dog scratch Head injury Abrasion of arm, right Departure Information Dispostion Home / Self-Care Condition GOOD Prescriptions Cefuroxime Axetil (CEFUROXIME AXETIL) 500 Mg Tab 1 TAB PO BID for 7 Days, #14 TAB Prov: Jane Mills PA-C 01/17/18 Clindamycin Hcl (CLEOCIN) 150 Mg Cap 3 CAP PO QID for 7 Days, #84 CAP Prov: Jane Mills PA-C 01/17/18 Forms HOME CARE DOCUMENTATION FORM, IMPORTANT VISIT INFORMATION Patient Instructions My [facility], ED Abrasion, ED Bite Dog, ED Head Injury Closed, ED Laceration All Additional Instructions Abrasion: Antibiotic ointment and bandage to the areas until healed. Follow up with family doctor or return for any signs of infection (increasing redness, swelling , drainage, or fever). Keep covered when in sun until fully healed then SPF 50 or higher until scar healed. Laceration: Keep wound clean and dry. Do not allow any crusting or dried blood to accumulate on sutures. If this occurs, use a 1:1 solution of hydrogen peroxide/ water on a Q-tip to clean the wound. Use an antibiotic ointment for 3-4 days, then let wound dry. Suture removal in 5-7 days. Return sooner for any signs of infection (increasing redness, swelling, drainage). Ice and elevate for swelling and pain. Keep covered when in sun until sutures removed then SPF 50 or higher for one year. Vitamin E oil if desired two weeks after suture removal for reduction of scar. Head injury: Read head injury handout and return for any symptoms. Tylenol 1000 mg as needed for pain (Maximum 3000 mg Tylenol in 24 hr period). Avoid alcohol and contact sports/activities for one week and follow up with family doctor prior to returning to these activities if still symptomatic. Ice and elevate head. If your symptoms persist more than a week then follow up with the concussion clinic. Call [phone]. Return to ER sooner for headache, fevers, confusion, worsening signs or symptoms or as needed. Return to the ER immediately for headache, fevers, confusion, vomiting, worsening signs or symptoms or as needed. Monitor your Coumadin level. This can change while you are on antibiotics. Problem Qualifiers Primary Impression: Facial contusion Encounter type: initial encounter Qualified Codes: S00.83XA - Contusion of other part of head, initial encounter
--- NOTE | 2018-01-17 06:34 | DIAGNOSTIC IMAGING REPORT ---
CT HEAD WITHOUT CONTRAST (CT) CLINICAL HISTORY: Headache. Patient on anticoagulants. COMPARISON STUDY: 11/23/2017 TECHNIQUE: Axial CT of the brain is performed from the vertex to the skull base. IV contrast was not administered for this examination. A dose lowering technique was utilized adhering to the principles of ALARA. CT DOSE: 614.27 mGy.cm FINDINGS: No intra or extra-axial mass lesions are visualized. There is no CT evidence of acute cortical infarction. There is no evidence of midline shift. There is no acute hemorrhage. No calvarial fractures are visualized. There are patchy white matter hypodensities likely on a small vessel basis. There is no evidence of pathologic ventricular dilatation. There is no evidence of acute sinusitis. There is minor right frontal scalp swelling. IMPRESSION: No acute intracranial findings Electronically signed by: Alphonso Gracia M.D. 01/17/2018 6:33 AM Dictated Date/Time: 01/17/2018 6:32 AM
== END 2018-01-17 01:22 | disposition home or self-care (01) ==
LOC: C.EDB 22:27
DX: S00.83XA Contusion of other part of head, initial encounter (principal); S01.111A Laceration without foreign body of right eyelid and periocular area, initial encounter; S09.90XA Unspecified injury of head, initial encounter; S40.811A Abrasion of right upper arm, initial encounter; W54.1XXA Struck by dog, initial encounter; I50.9 Heart failure, unspecified; J44.9 Chronic obstructive pulmonary disease, unspecified; Z95.0 Presence of cardiac pacemaker; I25.2 Old myocardial infarction; F17.200 Nicotine dependence, unspecified, uncomplicated; Z79.82 Long term (current) use of aspirin; Z79.01 Long term (current) use of anticoagulants; Z51.81 Encounter for therapeutic drug level monitoring; Z23 Encounter for immunization

== ENCOUNTER 2018-05-23 19:52 | Emergency (ER) | payer OTHER ==
[~2018-05-23] VITALS: Ht 165.1 cm; Wt 65.0 kg
[~2018-05-23 19:52] MED LIST changes: +ALL100 PO; -AZIT-57 PO; -CMP/10 PO; +CYM30 PO; +CYM60 PO; -DULO60CA44 PO; +FLVHFA220 PO; +IPRA-64 INH; -IPRASOL4 INH; -NRN600 PO; +PRD10 PO; -PRED10TA PO; +PROC10TA5 PO; +TPM25 PO
[2018-05-23 20:04] VITALS: TEMP 36.7; Ht 165.1 cm; Wt 65.0 kg
--- NOTE | 2018-05-23 20:53 | DIAGNOSTIC IMAGING REPORT ---
CT HEAD WITHOUT CONTRAST (CT) CLINICAL HISTORY: Head pain status post trauma. Vomiting. COMPARISON STUDY: January 16, 2018 TECHNIQUE: Axial CT of the brain is performed from the vertex to the skull base. IV contrast was not administered for this examination. A dose lowering technique was utilized adhering to the principles of ALARA. CT DOSE: FINDINGS: No intra or extra-axial mass lesions are visualized. There is no CT evidence of acute cortical infarction. There is no evidence of midline shift. There is no acute hemorrhage. No calvarial fractures are visualized. There are patchy white matter hypodensities likely on a small vessel basis. There is no evidence of pathologic ventricular dilatation. There is no evidence of acute sinusitis IMPRESSION: No acute intracranial findings Electronically signed by: Alphonso Gracia M.D. 05/23/2018 8:52 PM Dictated Date/Time: 05/23/2018 8:51 PM
--- NOTE | 2018-05-23 20:56 | DIAGNOSTIC IMAGING REPORT ---
CT OF THE CERVICAL SPINE CLINICAL HISTORY: Neck pain status post trauma. COMPARISON STUDY: October 2017 CT DOSE: 995.36 mGy.cm TECHNIQUE: CT scan of the cervical spine was performed from the skull base to the thoracic inlet. Images are reviewed in the axial, sagittal, and coronal planes. IV contrast was not administered for this examination. A dose lowering technique was utilized adhering to the principles of ALARA. FINDINGS: The visualized portions of the lung apices reveal no evidence of pneumothorax. There is mild apical emphysema. The prevertebral soft tissues are normal. No fractures or subluxations are visualized. There are mild multilevel degenerative changes. There is an old left clavicular fracture. There are dense atheromatous calcifications within the left subclavian artery. IMPRESSION: No evidence of acute fracture or traumatic subluxation. Electronically signed by: Alphonso Gracia M.D. 05/23/2018 8:54 PM Dictated Date/Time: 05/23/2018 8:52 PM
[2018-05-23] MEDS ORDERED: LIDOCAINE/EPINEPHRINE 1% 20 ML VIAL INFIL STA (21:09)
[2018-05-23] MEDS ORDERED: HYDROCODONE/ACETAMIN 5/325MG TAB PO STA (21:28)
[2018-05-23 21:43] VITALS: BP 110/61; PULSE 72; O2SAT 93
--- NOTE | 2018-05-23 21:50 | EMERGENCY ROOM VISIT NOTE ---
ED Visit Note First contact with patient: 21:49 The patient was seen and examined with kasey. I agree with the history, physical and findings. Please see the note for disposition and details.
--- NOTE | 2018-05-23 21:57 | EMERGENCY ROOM VISIT NOTE ---
ED Visit Note First contact with patient: 20:09 CHIEF COMPLAINT: Head injury, forehead laceration HISTORY OF PRESENT ILLNESS: This 63-year-old female patient presented to the emergency department, ambulatory, approximately 2 hours after receiving a head injury when she suffered a mechanical fall in her living room. The patient states that she struck her head on the end table when she fell after tripping. She sustained a laceration to the right side of the forehead. There was no brief loss of consciousness. There has been no vomiting. The patient complains of a headache on the top of her head and severe neck pain. The patient did take a dose of Aleve a few hours ago without relief of her symptoms. She rates her pain 9/10 and sharp. The patient denies visual disturbances, lightheadedness, dizziness, chest pain, dyspnea, palpitations, abdominal pain, nausea, vomiting, confusion, or other concerning symptoms. The headache has been constant and worsening. The patient denies bowel or bladder dysfunction. The patient is currently on Coumadin. The patient denies any other injuries. The patient's most recent tetanus vaccination was last year. REVIEW OF SYSTEMS: A 10 system review of systems was performed with positives and pertinent negatives listed in the history of present illness. All other systems were reviewed and are negative. ALLERGIES: Morphine, nitroglycerin, oxycodone, penicillin MEDICATIONS: Hydrocodone, aspirin, Lipitor, BuSpar, Soma, Cymbalta, gabapentin, Lasix, Protonix, Coumadin PMH: Pacemaker, heart disease, chronic pain SOCIAL HISTORY: The patient lives locally with family. She denies drug, alcohol use. Patient admits to smoking cigarettes daily. PHYSICAL EXAM: Vital Signs: Reviewed Nurse's notes, vital signs stable. GENERAL : This is a 63-year-old white female, in no acute distress, well-developed, well -nourished. NEURO: The patient is alert, oriented to person place and time, and coherent. Normal mini mental status exam. Negative Romberg and pronator drift. Cerebellar function intact. SKIN: There is a 1 cm laceration just superior to the right eyebrow on the forehead. The edges gape apart with traction. There is no active bleeding and no foreign material in the wound. There are no deep structures present. Capillary refill less than two seconds. Normal sensation to light and sharp touch. HEAD: Normocephalic. No significant swelling or contusion noted. EYES: Pupils are equal round and reactive to light and accommodation. EOMs are full and optic discs and fundi are normal. There is no swelling or discoloration of the tissue surrounding the eyes. EARS: Negative nieto sign. External auditory canals clear without blood. There is a small area of blood noted at the 2 o'clock position on the right TM. There is no blood behind the TM. NOSE: Patent without tenderness. No septal hematoma. FACE: No facial bone tenderness. NECK: Supple. There is cervical spine tenderness. The patient does have tenderness with movement of the neck. RADIOLOGY: CT HEAD WITHOUT CONTRAST (CT) CLINICAL HISTORY: Head pain status post trauma. Vomiting. COMPARISON STUDY: January 16, 2018 TECHNIQUE: Axial CT of the brain is performed from the vertex to the skull base. IV contrast was not administered for this examination. A dose lowering technique was utilized adhering to the principles of ALARA. CT DOSE: FINDINGS: No intra or extra-axial mass lesions are visualized. There is no CT evidence of acute cortical infarction. There is no evidence of midline shift. There is no acute hemorrhage. No calvarial fractures are visualized. There are patchy white matter hypodensities likely on a small vessel basis. There is no evidence of pathologic ventricular dilatation. There is no evidence of acute sinusitis IMPRESSION: No acute intracranial findings Electronically signed by: Alphonso Gracia M.D. 05/23/2018 8:52 PM Dictated Date/Time: 05/23/2018 8:[address] OF THE CERVICAL SPINE CLINICAL HISTORY: Neck pain status post trauma. COMPARISON STUDY: October 2017 CT DOSE: 995.36 mGy.cm TECHNIQUE: CT scan of the cervical spine was performed from the skull base to the thoracic inlet. Images are reviewed in the axial, sagittal, and coronal planes. IV contrast was not administered for this examination. A dose lowering technique was utilized adhering to the principles of ALARA. FINDINGS: The visualized portions of the lung apices reveal no evidence of pneumothorax. There is mild apical emphysema. The prevertebral soft tissues are normal. No fractures or subluxations are visualized. There are mild multilevel degenerative changes. There is an old left clavicular fracture. There are dense atheromatous calcifications within the left subclavian artery. IMPRESSION: No evidence of acute fracture or traumatic subluxation. Electronically signed by: Alphonso Gracia M.D. 05/23/2018 8:54 PM Dictated Date/Time: 05/23/2018 8:52 PM ED COURSE: I examined the patient. CT scans performed reviewed by myself and radiologist as above. Verbal consent was obtained to perform the procedure. Using sterile technique the wound was cleaned with Betadine. The area was sterilely draped. 2 ml of 1% lidocaine with epinephrine was used to anesthetize the laceration on the forehead. Once the patient was anesthetized, the wound was copiously irrigated under pressure with sterile saline. The wound was explored and there were no deep structures injured such as tendons, bone, or significant blood vessels. The laceration was repaired using 4 simple interrupted 6-0 nylon sutures with the wound edges being well approximated. The patient tolerated the procedure well. Hemostasis was achieved. The area was cleaned with sterile saline and dressed with bacitracin ointment and bandage. The patient did request medication for pain. She states she is on chronic hydrocodone. She was given a dose of Reese here in the emergency department. She was encouraged to use her pain medication that she has at home for any further complaints of pain. The patient was discharged home in good condition. The patient was seen and evaluated by Dr. Espitia. I attest that I have personally reviewed the patient's current medication list. Patient was found to have normal blood pressure on screening and does not require follow-up. Differential diagnosis includes closed head injury, concussion, intracranial hemorrhage, skull fracture, contusion, headache, infection, malignancy, laceration, contusion, fracture, sprain/strain, tendon or ligament injury, neurovascular compromise, foreign body, assault, and others DIAGNOSIS: Head injury, facial laceration, neck pain, mechanical fall The chart was completed utilizing [employer] Speech voice recognition software. Grammatical errors, random word insertions, pronoun errors, and incomplete sentences are an occasional consequence of this system due to software limitations, ambient noise, and hardware issues. Any formal questions or concerns about the content, text, or information contained within the body of this dictation should be directly addressed to the provider for clarification. Problem List Medical Problems: (1) CHF (congestive heart failure) Status: Chronic (2) COPD (chronic obstructive pulmonary disease) Status: Chronic (3) H/O cardiac pacemaker Status: Chronic (4) H/O unilateral nephrectomy Status: Resolved (5) History of - pulmonary embolus Status: Resolved (6) Kidney stones Status: Resolved (7) Myocardial infarction Status: Resolved Surgical Problems: (1) AICD (automatic cardioverter/defibrillator) present Status: Chronic Current/Historical Medications Scheduled Allopurinol (Allopurinol), 100 MG PO DAILY Aspirin (Aspirin Ec), 81 MG PO QAM Atorvastatin (Lipitor), 10 MG PO QAM Buspirone HCl (Buspirone HCl), 15 MG PO BID Cholecalciferol (Vitamin D3), 2,000 INTER.UNIT PO QAM Divalproex Sodium (Depakote Etended-Release), 500 MG PO HS Duloxetine HCl (Duloxetine HCl), 30 MG PO BID Duloxetine HCl (Duloxetine HCl), 60 MG PO DAILY Fluticasone Propionate (Flovent Hfa), 1 PUFF PO BID Furosemide (Furosemide), 40 MG PO BID Gabapentin (Gabapentin), 900 MG PO TID Home O2 Therapy (Oxygen), 3 LITERS NA UD Metoprolol Tartrate (Lopressor) (Lopressor), 50 MG PO BID Pantoprazole (Pantoprazole Sodium), 40 MG PO QAM Potassium Chloride Microencaps (Potassium Chloride Er), 20 MEQ PO DAILY Prednisone (Prednisone), 40 MG PO DAILY Primidone (Mysoline), 100 MG PO HS Primidone (Primidone), 50 MG PO BID Topiramate (Topiramate), 25 MG PO BID Warfarin Sod (Jantoven), 5 MG PO 2XWK Warfarin Sod (Jantoven), 2.5 MG PO 5XWK Scheduled PRN Cllzfxsepm-Ybnjguwngjdlm-Faiao (Esgic), 1 TAB PO UD PRN for Headache Carisoprodol (Soma), 350 MG PO TID PRN for Muscle Relaxer Hydrocodone/Acetaminophen (Reese 10/325 Tab), 2 TABS PO TID PRN for Pain Ipratropium-Albuterol (Duoneb), 1 TREATMENT INH QID PRN for SOB/Wheezing Prochlorperazine Maleate (Prochlorperazine Maleate), 10 MG PO Q6H PRN for Migraine/Nausea Allergies Coded Allergies: Penicillins (Verified Allergy, Severe, HIVES, 04/22/18) Nitroglycerin (Verified Allergy, Unknown, TOLD NOT TO TAKE BY CARDIOLOGY, 04/22/18) Morphine (Verified Adverse Reaction, Unknown, HALLUCINATE, 04/22/18) Oxycodone (Verified Adverse Reaction, Unknown, FROM PERCOCET-ITCHING, 04/22) Vital Signs Date Time Temp Pulse Resp B/P (MAP) Pulse Ox O2 Delivery O2 Flow Rate FiO2 05/23/18 21:43 72 16 110/61 93 Room Air 05/23/18 21:42 76 05/23/18 20:04 36.7 76 18 110/70 94 Room Air Medications Administered Medications (Trade) Dose Ordered Sig/Johnie Route Start Time Stop Time Status Last Admin Dose Admin Acetaminophen/ Hydrocodone Bitart (Reese 5/325 Tab) 1 tab NOW STAT PO 05/23/18 21:28 05/23/18 21:29 DC 05/23/18 21:42 1 TAB Departure Information Impression Primary Impression: Closed head injury Additional Impressions: Facial laceration Neck pain Fall Dispostion Home / Self-Care Condition GOOD Referrals Milady Valle (PCP) Patient Instructions ED Head Injury Closed, ED Laceration Facial Sutr Tape, ED Mechanical Fall, [facility] Additional Instructions You have received for sutures on your face. These sutures are NOT dissolvable and WILL need to be removed by a health care provider in 7 days. You can return to the Emergency Department or contact your Primary Care Provider to have the sutures removed. Proper wound care is essential for adequate wound healing and infection prevention. You can shower and clean the wound with soap and water. Do not scour over the wound, pat dry with a towel. Do not submerse the wound (i.e. bathe or dish wash) until the sutures have been removed. You can use an antibiotic ointment with a dressing over the wound for the next 3-4 days. After this time you may leave the wound dry and open to the air. If crust develops over the wound you can use a Q-tip to apply a 1:1 peroxide:water solution to clean the wound. Look for signs of infection of the wound including: increased pain, swelling, foul discharge, streaking, or increased temperature. If any of these are noticed you should return to the Emergency Department for further assessment and treatment. As with any laceration you may have received nerve damage to the surrounding tissues. This damage may or may not be permanent. You should keep the area covered with sunscreen for the first 6 months to 1 year when at risk for exposure to help minimize scarring. For pain control, you can use the following lcsz-nki-cvybegy medicines (if >12 yo): Acetaminophen(Tylenol) may be used for fever or pain. Use 1000mg every six hours as needed. Avoid using more than 3000mg in a 24 hour period. Use your regularly prescribed pain medications as directed. You should relax in a quiet, dark place for the rest of the day. Avoid any possible triggers including: cigarette smoke, caffeine, nicotine, chocolate, wine, beer, loud noises or music, or bright lights. You should schedule a follow-up appointment in 2-3 days with your Primary Care Provider or established Neurologist for further evaluation and treatment of your Headache. Return to the Emergency Department if your current symptoms worsen despite treatment course outlined above, or if you develop any of the following symptoms : intractable pain despite aforementioned treatment course, visual disturbances , loss of vision, unilateral weakness or facial drooping, slurring of speech, loss of coordination, or loss of consciousness. Problem Qualifiers Primary Impression: Closed head injury Encounter type: initial encounter Qualified Codes: S09.90XA - Unspecified injury of head, initial encounter Additional Impressions: Facial laceration Encounter type: initial encounter Qualified Codes: S01.81XA - Laceration without foreign body of other part of head, initial encounter Fall Encounter type: initial encounter Qualified Codes: W19.XXXA - Unspecified fall, initial encounter
== END 2018-05-23 22:21 | disposition home or self-care (01) ==
LOC: C.EDB 19:53 → C.EDD 22:21
DX: S01.81XA Laceration without foreign body of other part of head, initial encounter (principal); W01.190A Fall on same level from slipping, tripping and stumbling with subsequent striking against furniture, initial encounter; Y92.008 Other place in unspecified non-institutional (private) residence as the place of occurrence of the external cause; F17.210 Nicotine dependence, cigarettes, uncomplicated; Z95.0 Presence of cardiac pacemaker; G89.29 Other chronic pain; Z79.01 Long term (current) use of anticoagulants; Z79.899 Other long term (current) drug therapy; Z88.5 Allergy status to narcotic agent; Z88.0 Allergy status to penicillin; Z88.8 Allergy status to other drugs, medicaments and biological substances; I50.9 Heart failure, unspecified; J44.9 Chronic obstructive pulmonary disease, unspecified; Z86.711 Personal history of pulmonary embolism; Z87.442 Personal history of urinary calculi; I25.2 Old myocardial infarction

== ENCOUNTER 2018-06-10 15:53 | Emergency (ER) | payer OTHER ==
[~2018-06-10] VITALS: Ht 165.1 cm; Wt 57.0 kg
[2018-06-10 16:07] VITALS: TEMP 36.9; Ht 165.1 cm; Wt 57.0 kg
[2018-06-10] MEDS ORDERED: HYDROCODONE/ACETAMIN 5/325MG TAB PO STA (16:24)
[2018-06-10] MEDS ORDERED: OPTIRAY 320 IV PRN (16:30)
[2018-06-10 17:02] LABS: BASO % 0.3 %; BASO ABS # 0.03 K/uL (0-0.2); EOS % 5.2 %; EOS ABS # 0.45 K/uL (0-0.5); HEMATOCRIT 36.4 % (37-47); IG# 0.02 K/uL (0.00-0.02); LYMPH ABS # 1.75 K/uL (1.2-3.4); MEAN CELL VOLUME 101.1 fL (80-100); MEAN CORPUSCULAR HEMOGLOBIN 33.3 pg (25-34); MEAN PLATELET VOLUME 10.8 fL (7.4-10.4); MONO % 8.2 %; MONO ABS # 0.72 K/uL (0.11-0.59); NEUT % 66.1 %; NEUT ABS # 5.76 K/uL (1.4-6.5); PLATELET COUNT 234 K/uL (130-400); RED CELL DISTRIBUTION WIDTH CV 15.5 % (11.5-14.5); RED CELL DISTRIBUTION WIDTH SD 57.2 fL (36.4-46.3); WHITE BLOOD COUNT 8.73 K/uL (4.8-10.8)
[2018-06-10 17:11] LABS: INR 1.4 (0.9-1.1); PTT PATIENT 34.6 SECONDS (21.0-31.0)
--- NOTE | 2018-06-10 17:16 | DIAGNOSTIC IMAGING REPORT ---
CHEST ONE VIEW PORTABLE CLINICAL HISTORY: Abdominal pain. Respiratory difficulty. COMPARISON STUDY: Chest CT and chest radiograph April 22, 2018. FINDINGS: A right subclavian pacer/AICD and median sternotomy wires are noted. Cardiomegaly is unchanged. There is a trace right pleural effusion. No pneumothorax is present. Patient is rotated. Old left rib fractures are noted. There is pulmonary vascular congestion without overt edema. Mild bibasilar opacities are present. IMPRESSION: 1. Pulmonary vascular congestion without overt pulmonary edema. 2. Mild right infrahilar opacity which may reflect atelectasis or consolidation. 3. Trace right pleural effusion. Electronically signed by: Christiano Raymundo M.D. 06/10/2018 5:14 PM Dictated Date/Time: 06/10/2018 5:12 PM
[2018-06-10 17:39] LABS: CALCIUM 8.5 mg/dl (8.5-10.1); CREATININE 0.73 mg/dl (0.60-1.20); POTASSIUM 3.8 mmol/L (3.5-5.1); TOTAL PROTEIN 7.3 gm/dl (6.4-8.2)
--- NOTE | 2018-06-10 18:24 | DIAGNOSTIC IMAGING REPORT ---
CT OF THE HEAD WITHOUT CONTRAST CLINICAL HISTORY: Dizzy. Weak. COMPARISON STUDY: Head CT May 23, 2018. CT DOSE: 1097.72 mGy.cm TECHNIQUE: Helical axial images of the head were obtained without IV contrast. Automated exposure control was utilized for the study. A dose lowering technique was utilized adhering to the principles of ALARA. FINDINGS: No acute intracranial hemorrhage, midline shift or mass effect is present. Ventricular system is normal. Basilar cisterns are patent. There are no extra-axial collections. Berg-white differentiation is maintained. There are no findings to suggest acute dural sinus thrombosis or acute territorial infarct. Mild white matter hypodensity suggests small vessel disease. There may be an old lacunar infarct within the left cerebellar hemisphere. This is unchanged. There is no calvarial fracture. A calcific/ossific density along the inner table of the right frontal bone is unchanged. This is chronic. IMPRESSION: No acute intracranial findings. Electronically signed by: Christiano Raymundo M.D. 06/10/2018 6:23 PM Dictated Date/Time: 06/10/2018 6:17 PM
--- NOTE | 2018-06-10 18:40 | DIAGNOSTIC IMAGING REPORT ---
ABDOMEN AND PELVIS CT WITH IV CONTRAST CT DOSE: HISTORY: Generalized abdominal pain. TECHNIQUE: Multiaxial CT images of the abdomen and pelvis were performed following the use of intravenous contrast. A dose lowering technique was utilized adhering to the principles of ALARA. COMPARISON STUDY: Abdomen and pelvis CT 08/28/2016. FINDINGS: Trace right pleural effusion. Small fat-containing left-sided Bochdalek hernia. Pacemaker wires are noted. Stable 3 mm subpleural nodule within the right lower lobe on image 20. Right lower lobe posterior consolidation favors compressive atelectasis from the pleural fluid. No pneumoperitoneum. No pneumatosis. Stable bony defect within the right iliac wing. The liver, spleen, adrenal glands, gallbladder, and pancreas are unremarkable. The left kidney enhances normally. No hydronephrosis. A right kidney is not identified. Normal bladder. Hysterectomy. No pelvic free fluid. No retroperitoneal lymphadenopathy. No bowel wall thickening or obstruction. Normal appendix. Colonic diverticulosis IMPRESSION: 1. No bowel wall thickening or obstruction. 2. Normal appendix. 3. Trace right pleural effusion. Right lower lobe consolidation favors atelectasis from the pleural fluid. 4. The right kidney is absent presumably on a surgical basis. Electronically signed by: Juan Carlos Lombardi M.D. 06/10/2018 6:39 PM Dictated Date/Time: 06/10/2018 6:23 PM
[2018-06-10 19:51] VITALS: BP 109/63; PULSE 69; O2SAT 99
--- NOTE | 2018-06-10 21:57 | EMERGENCY ROOM VISIT NOTE ---
History Report prepared by Jayjay: Harleen White Under the Supervision of: Dr. Sav Navarrete M.D. First contact with patient: 16:16 Chief Complaint: SHORTNESS OF BREATH Stated Complaint: TROUBLE BREATHING History of Present Illness The patient is a 63 year old female who presents to the Emergency Room with complaints of shortness of breath. She is accompanied by 2 family members. Her family states that as they were visiting another family member here in the hospital, the patient became very weak and was unable to keep walking, stopping in front of the snack bar here at [facility]. She ambulates with a walker but her states she often does not look as she is moving forward. The patient currently complains of back pain and a headache, but admits these are chronic for her. She states she became increasingly short of breath this afternoon and is normally on 4L NC chronically. She also admits she did not eat today. The patient complains of abdominal pain and "pain anywhere you touch me" . She denies any recent fevers or nausea. She does take daily Warfarin. Source of History: patient Onset: earlier this afternoon Position: chest Timing: other (persistent) Associated Symptoms: + headache, + abdominal pain, + back pain, No fevers, No nausea Review of Systems See HPI for pertinent positives and negatives. A total of ten systems were reviewed and were otherwise negative. Past Medical & Surgical Medical Problems: (1) Abdominal pain (2) CHF (congestive heart failure) (3) COPD (chronic obstructive pulmonary disease) (4) H/O cardiac pacemaker (5) H/O unilateral nephrectomy (6) History of - pulmonary embolus (7) Kidney stones (8) Mucoid impaction of bronchi (9) Myocardial infarction (10) SOB (shortness of breath) (11) Stroke-like symptoms Surgical Problems: (1) AICD (automatic cardioverter/defibrillator) present Family History No significant family history Social History Smoking Status: Current Every Day Smoker Alcohol Use: none Drug Use: none Marital Status: Housing Status: lives with family Occupation Status: unemployed Current/Historical Medications Scheduled Allopurinol (Allopurinol), 100 MG PO DAILY Aspirin (Aspirin Ec), 81 MG PO QAM Atorvastatin (Lipitor), 10 MG PO QAM Buspirone HCl (Buspirone HCl), 15 MG PO BID Cholecalciferol (Vitamin D3), 2,000 INTER.UNIT PO QAM Divalproex Sodium (Depakote Etended-Release), 500 MG PO HS Duloxetine HCl (Duloxetine HCl), 30 MG PO BID Duloxetine HCl (Duloxetine HCl), 60 MG PO DAILY Fluticasone Propionate (Flovent Hfa), 1 PUFF PO BID Furosemide (Furosemide), 40 MG PO BID Gabapentin (Gabapentin), 900 MG PO TID Home O2 Therapy (Oxygen), 3 LITERS NA UD Metoprolol Tartrate (Lopressor) (Lopressor), 50 MG PO BID Pantoprazole (Pantoprazole Sodium), 40 MG PO QAM Potassium Chloride Microencaps (Potassium Chloride Er), 20 MEQ PO DAILY Primidone (Mysoline), 100 MG PO HS Primidone (Primidone), 50 MG PO BID Topiramate (Topiramate), 25 MG PO BID Warfarin Sod (Jantoven), 5 MG PO 2XWK Warfarin Sod (Jantoven), 2.5 MG PO 5XWK Scheduled PRN Carisoprodol (Soma), 350 MG PO TID PRN for Muscle Relaxer Hydrocodone/Acetaminophen ([place] 10/325 Tab), 2 TABS PO TID PRN for Pain Ipratropium-Albuterol (Duoneb), 1 TREATMENT INH QID PRN for SOB/Wheezing Prochlorperazine Maleate (Prochlorperazine Maleate), 10 MG PO Q6H PRN for Migraine/Nausea Allergies Coded Allergies: Penicillins (Verified Allergy, Severe, HIVES, 06/10/18) Nitroglycerin (Verified Allergy, Unknown, TOLD NOT TO TAKE BY CARDIOLOGY, 06/10/18) Morphine (Verified Adverse Reaction, Unknown, HALLUCINATE, 06/10/18) Oxycodone (Verified Adverse Reaction, Unknown, FROM PERCOCET-ITCHING, 06/10) Physical Exam Vital Signs Date Time Temp Pulse Resp B/P (MAP) Pulse Ox O2 Delivery O2 Flow Rate FiO2 06/10/18 19:51 69 14 109/63 99 06/10/18 19:01 72 16 104/69 100 Nasal Cannula 2.0 06/10/18 18:31 74 18 93/72 100 Nasal Cannula 2.0 06/10/18 18:30 71 16 93/72 100 Nasal Cannula 2.0 06/10/18 18:00 68 16 118/72 100 Nasal Cannula 4.0 06/10/18 17:30 60 16 88/51 100 Nasal Cannula 4.0 06/10/18 17:21 60 06/10/18 17:00 61 16 98/65 100 Room Air 06/10/18 16:07 36.9 78 22 94/62 100 Room Air 4.0 Physical Exam GENERAL: Awake, alert, chronically ill-appearing, sitting on stretcher, in no distress HENT: Normocephalic, atraumatic. Oropharynx unremarkable. EYES: Normal conjunctiva. Sclera non-icteric. NECK: Supple. No nuchal rigidity. RESPIRATORY: Lung sounds are diminished at the bases. Minimal to no wheezes. Normal respiratory effort. CARDIAC: Normal rate. Normal rhythm. Extremities warm and well perfused. GI: Soft, non-distended. Diffuse mild to moderate abdominal tenderness to palpation. No rebound or guarding. No masses. RECTAL: Deferred. MUSCULOSKELETAL: Atraumatic. Chest examination reveals no tenderness. LOWER EXTREMITIES: Calves are equal size bilaterally and non-tender. 2+ bilateral pedal edema. Some mild chronic stasis changes. NEURO: Normal sensorium. No sensory or motor deficits noted. No facial droop. SKIN: Warm and dry. No jaundice noted. Medical Decision & Procedures ER Provider Diagnostic Interpretation: Radiology results as stated below per my review and radiologist interpretation: CHEST ONE VIEW PORTABLE CLINICAL HISTORY: Abdominal pain. Respiratory difficulty. COMPARISON STUDY: Chest CT and chest radiograph April 22, 2018. FINDINGS: A right subclavian pacer/AICD and median sternotomy wires are noted. Cardiomegaly is unchanged. There is a trace right pleural effusion. No pneumothorax is present. Patient is rotated. Old left rib fractures are noted. There is pulmonary vascular congestion without overt edema. Mild bibasilar opacities are present. IMPRESSION: 1. Pulmonary vascular congestion without overt pulmonary edema. 2. Mild right infrahilar opacity which may reflect atelectasis or consolidation. 3. Trace right pleural effusion. Electronically signed by: Christiano Raymundo M.D. 06/10/2018 5:[address] OF THE HEAD WITHOUT CONTRAST CLINICAL HISTORY: Dizzy. Weak. COMPARISON STUDY: Head CT May 23, 2018. CT DOSE: 1097.72 mGy.cm TECHNIQUE: Helical axial images of the head were obtained without IV contrast. Automated exposure control was utilized for the study. A dose lowering technique was utilized adhering to the principles of ALARA. FINDINGS: No acute intracranial hemorrhage, midline shift or mass effect is present. Ventricular system is normal. Basilar cisterns are patent. There are no extra-axial collections. Berg-white differentiation is maintained. There are no findings to suggest acute dural sinus thrombosis or acute territorial infarct. Mild white matter hypodensity suggests small vessel disease. There may be an old lacunar infarct within the left cerebellar hemisphere. This is unchanged. There is no calvarial fracture. A calcific/ossific density along the inner table of the right frontal bone is unchanged. This is chronic. IMPRESSION: No acute intracranial findings. Electronically signed by: Christiano Raymundo M.D. 06/10/2018 6:23 PM ABDOMEN AND PELVIS CT WITH IV CONTRAST CT DOSE: HISTORY: Generalized abdominal pain. TECHNIQUE: Multiaxial CT images of the abdomen and pelvis were performed following the use of intravenous contrast. A dose lowering technique was utilized adhering to the principles of ALARA. COMPARISON STUDY: Abdomen and pelvis CT 08/28/2016. FINDINGS: Trace right pleural effusion. Small fat-containing left-sided Bochdalek hernia. Pacemaker wires are noted. Stable 3 mm subpleural nodule within the right lower lobe on image 20. Right lower lobe posterior consolidation favors compressive atelectasis from the pleural fluid. No pneumoperitoneum. No pneumatosis. Stable bony defect within the right iliac wing. The liver, spleen, adrenal glands, gallbladder, and pancreas are unremarkable. The left kidney enhances normally. No hydronephrosis. A right kidney is not identified. Normal bladder. Hysterectomy. No pelvic free fluid. No retroperitoneal lymphadenopathy. No bowel wall thickening or obstruction. Normal appendix. Colonic diverticulosis IMPRESSION: 1. No bowel wall thickening or obstruction. 2. Normal appendix. 3. Trace right pleural effusion. Right lower lobe consolidation favors atelectasis from the pleural fluid. 4. The right kidney is absent presumably on a surgical basis. Electronically signed by: Juan Carlos Lombardi M.D. 06/10/2018 6:39 PM Laboratory Results 06/10/18 16:45 Red Blood Count 3.60, Mean Corpuscular Volume 101.1, Mean Corpuscular Hemoglobin 33.3, Mean Corpuscular Hemoglobin Concent 33.0, Mean Platelet Volume 10.8, Neutrophils (%) (Auto) 66.1, Lymphocytes (%) (Auto) 20.0, Monocytes (%) ( Auto) 8.2, Eosinophils (%) (Auto) 5.2, Basophils (%) (Auto) 0.3, Neutrophils # ( Auto) 5.76, Lymphocytes # (Auto) 1.75, Monocytes # (Auto) 0.72, Eosinophils # ( Auto) 0.45, Basophils # (Auto) 0.03 06/10/18 16:45 Test 06/10/18 16:45 White Blood Count 8.73 K/uL (4.8-10.8) Red Blood Count 3.60 M/uL (4.2-5.4) Hemoglobin 12.0 g/dL (12.0-16.0) Hematocrit 36.4 % (37-47) Mean Corpuscular Volume 101.1 fL (80-100) Mean Corpuscular Hemoglobin 33.3 pg (25-34) Mean Corpuscular Hemoglobin Concent 33.0 g/dl (32-36) Platelet Count 234 K/uL (130-400) Mean Platelet Volume 10.8 fL (7.4-10.4) Neutrophils (%) (Auto) 66.1 % Lymphocytes (%) (Auto) 20.0 % Monocytes (%) (Auto) 8.2 % Eosinophils (%) (Auto) 5.2 % Basophils (%) (Auto) 0.3 % Neutrophils # (Auto) 5.76 K/uL (1.4-6.5) Lymphocytes # (Auto) 1.75 K/uL (1.2-3.4) Monocytes # (Auto) 0.72 K/uL (0.11-0.59) Eosinophils # (Auto) 0.45 K/uL (0-0.5) Basophils # (Auto) 0.03 K/uL (0-0.2) RDW Standard Deviation 57.2 fL (36.4-46.3) RDW Coefficient of Variation 15.5 % (11.5-14.5) Immature Granulocyte % (Auto) 0.2 % Immature Granulocyte # (Auto) 0.02 K/uL (0.00-0.02) Prothrombin Time 14.8 SECONDS (9.0-12.0) Prothromb Time International Ratio 1.4 (0.9-1.1) Activated Partial Thromboplast Time 34.6 SECONDS (21.0-31.0) Partial Thromboplastin Ratio 1.3 Anion Gap 6.0 mmol/L (3-11) Est Creatinine Clear Calc Drug Dose 70.1 ml/min Estimated GFR () 100.9 Estimated GFR (Non- 87.0 BUN/Creatinine Ratio 9.9 (10-20) Calcium Level 8.5 mg/dl (8.5-10.1) Total Bilirubin 0.5 mg/dl (0.2-1) Direct Bilirubin 0.1 mg/dl (0-0.2) Aspartate Amino Transf (AST/SGOT) 17 U/L (15-37) Alanine Aminotransferase (ALT/SGPT) 16 U/L (12-78) Alkaline Phosphatase 142 U/L (45-117) Troponin I 1.620 ng/ml (0-0.045) Pro-B-Type Natriuretic Peptide 8090 pg/ml (0-900) Total Protein 7.3 gm/dl (6.4-8.2) Albumin 3.0 gm/dl (3.4-5.0) Lipase 102 U/L (73-393) Thyroid Stimulating Hormone (TSH) 1.470 uIu/ml (0.300-4.500) Laboratory results reviewed by me ECG Per My Interpretation Indication: SOB/dyspnea Rate (beats per minute): 67 Rhythm: other (atrially sensed, ventricularly paced) Findings: other (No significant ST elevation) Change: no significant change (No change from EKG on April 22, 2018) ED Course 1616: The patient was evaluated in room B5. A complete history and physical exam was performed. 1624: [place] 5/325 mg 1 tab PO. 1920: I reevaluated the patient. She is feeling better and is ready to go home. I discussed her results and discharge instructions and she verbalized complete understanding and agreement. Medical Decision Triage Nursing notes reviewed. The patient's presentation and history were concerning for weakness. Differential diagnosis: Etiologies such as metabolic, infection, hypo/hyperglycemia, electrolyte abnormalities, cardiac sources, intracerebral event, toxicologic, neurologic, as well as others were entertained. Patient presents after becoming weak and dizzy. Complaining of diffuse pain but also significant tenderness in her abdomen. Denies significant shortness of breath to me on evaluation. Will evaluate CT to exclude intra-abdominal processes perforation appendicitis, colitis, or diverticulitis. Patient is on Coumadin. Denies falls. Has been up extended. Today with limited food intake while a relative was getting a surgical procedure. History of chronic migraines she states is occurring. States [place] usually helps with this and she tolerated before. Chest x-ray shows some mild pulmonary congestion without overt pulmonary edema. She is stable on baseline oxygen right now. Doubt pneumonia. No fevers or leukocytosis present. ProBNP is elevated compared to previous midly. Again not endorsing significant respiratory complaints beyond baseline. Troponin elevation of 1.62 is present; appears to have chronic troponin elevation based on last for several previous lab results. EKG shows a paced rhythm limiting diagnostic utility. Subtherapeutic INR. Thyroid function within normal limits. CT abdomen pelvis was completed and no acute intra-abdominal process was noted. She is not having having significant respiratory symptoms and I doubt that she is experiencing a pneumonia. A aisha discussion with patient and family regarding options at this point. They feel that she most likely overdid it today being out of the house and here waiting around all day. Discussed options including admission but they feel most comfortable with discharge home. She states she is at her respiratory baseline and just feels tired and wants to go home. Do not believe this is acute ACS and doubt acute pulmonary edema or heart failure exacerbation. Troponin appears chronically elevated. Discussed INR level and talking to the regular doctor regarding her Coumadin dosing. Discussed with them that they should have close outpatient follow-up and return here at any time. Acknowledged return precautions. Medication Reconcilliation Current Medication List: was personally reviewed by me Blood Pressure Screening Patient's blood pressure: Low blood pressure Impression Primary Impression: Weakness Scribe Attestation The scribe's documentation has been prepared under my direction and personally reviewed by me in its entirety. I confirm that the note above accurately reflects all work, treatment, procedures, and medical decision making performed by me. Departure Information Dispostion Home / Self-Care Referrals Milady Valle (PCP) Patient Instructions My [facility] Additional Instructions Please discuss with your doctor your Coumadin dosing as her INR is low at 1.4 today. If he began to experience weakness or lightheadedness please sit down before falling. If he began to experience new or concerning symptoms including but not limited to chest pain shortness of breath, no abdominal pain, or fever please feel free to return at any time. Please rest and elevate her legs. Please monitor for increased swelling and if this occurs would recommend he return to discuss with your doctor to discuss your Lasix dosing.
== END 2018-06-10 19:49 | disposition home or self-care (01) ==
LOC: C.EDB 15:55
DX: R53.1 Weakness (principal); Z99.81 Dependence on supplemental oxygen; I50.9 Heart failure, unspecified; J44.9 Chronic obstructive pulmonary disease, unspecified; F17.200 Nicotine dependence, unspecified, uncomplicated; Z90.5 Acquired absence of kidney; Z86.711 Personal history of pulmonary embolism; Z95.810 Presence of automatic (implantable) cardiac defibrillator; Z79.82 Long term (current) use of aspirin; Z79.01 Long term (current) use of anticoagulants; Z79.899 Other long term (current) drug therapy; Z88.0 Allergy status to penicillin; Z88.8 Allergy status to other drugs, medicaments and biological substances; Z88.5 Allergy status to narcotic agent